=== PATIENT | male | born 1960 | race Caucasian/White ===

== ENCOUNTER 2016-12-25 01:01 | Observation (INO) | payer BC ==
[2016-12-25 02:37] LABS: Hematocrit 41 % (42-52); Hemoglobin 13.4 g/dl (14.0-18.0); Mean Corpuscular HGB Conc 33 g/dl (31-36); Mean Corpuscular Hemoglobin 28 pg (27-31); Mean Corpuscular Volume 84 fL (80-94); Mean Platelet Volume 9 um3 (7.4-10.4); Red Blood Count 4.87 10^6/ul (4.0-5.4); Red Cell Distribution Width 14 % (10.5-15); White Blood Count 12.3 10^3/ul (3.5-10.8)
[2016-12-25] MEDS ORDERED: Vancomycin(*) 1,500 MG in NS 0.9% 250 ML* 250 ML IVPB ONE (02:51)
[2016-12-25] MEDS ORDERED: NS 0.9% 1000 ML* 1,000 ML IV ONE (02:51)
[2016-12-25 02:52] LABS: Albumin 4.2 g/dL (3.2-5.2); BUN/Creatinine Ratio 16.9 (8-20); C Reactive Protein 27.52 mg/L (< 5.00); Calcium 9.1 mg/dL (8.6-10.3); EGFR African American 112.9 (>60); EGFR Non-African American 87.8 (>60); Globulin 3.9 g/dL (2-4); Potassium 3.7 mmol/L (3.5-5.0); Total Bilirubin 0.9 mg/dL (0.2-1.0); Total Protein 8.1 g/dL (6.4-8.9)
[2016-12-25] MEDS ORDERED: NS 0.9% 250 ML* 250 ML ONE (02:56)
--- NOTE | 2016-12-25 03:14 | ED ---
Joaquín Perkins Aidan, scribed for Mervat Majano MD on 12/25/16 at 0300 . Lower Extremity - HPI Summary HPI Summary: 56 y/o male presents to the ED with a complaint of an bfxaz-ic-ntegywt, constant , moderate (5/100, worsening soreness and increased swelling and redness in his lower extremities bilaterally. His RLE has increased in redness substantially more than his LLE. Additionally, he had a fever of 101. Hx of circulation problems and chronic swelling and redness in his lower extremities. - History of Current Complaint Chief Complaint: EDExtremityLower Stated Complaint: FEVER/RT LEG SWELLING Time Seen by Provider: 12/25/16 01:21 Hx Obtained From: Patient Mechanism Of Injury: Unknown Onset of Pain: Days - his lower extremities have been having increased soreness for several days now Onset/Duration: Days - however, he has had chronic lower extremity swelling and redness for a very long time Severity Initially: Moderate Severity Currently: Moderate Pain Intensity: 5 Pain Scale Used: 0-10 Numeric Timing: Constant Location: Is Discrete @ - lower extremities bilaterally Character Of Pain: Dull - soreness Associated Signs And Symptoms: Positive: Swelling, Redness, Other - fever of 101 Aggravating Factor(s): Other - unknown Alleviating Factor(s): Other - unknown Able to Bear Weight: Yes - Risk Factors Gout Risk Factors: Age Over 40, Male, Hypertension - Allergies/Home Medications Allergies/Adverse Reactions: Allergies Allergy/AdvReac Type Severity Reaction Status Date / Time Sulfa Antibiotics Allergy GI Upset Verified 12/25/16 03:08 Home Medications: Home Medications Eplerenone [Inspra] 25 mg PO DAILY 12/25/16 [History Confirmed 12/25/16] Ferrous Sulfate [Iron (Ferrous Sulfate)] 25 mg PO DAILY 12/25/16 [History Confirmed 12/25/16] PMH/Surg Hx/FS Hx/Imm Hx Endocrine/Hematology History: Denies: Hx Diabetes, Hx Thyroid Disease Cardiovascular History: Reports: Hx Hypertension - ON MEDICATION Denies: Hx Pacemaker/ICD, Other Cardiovascular Problems/Disorders Respiratory History: Reports: Hx Sleep Apnea Denies: Hx Asthma, Hx Chronic Obstructive Pulmonary Disease (COPD), Other Respiratory Problems/Disorders GI History: Reports: Hx Gastroesophageal Reflux Disease - WELL CONTROLLED, Hx Ulcer - gerd Denies: Other GI Disorders Musculoskeletal History: Reports: Hx Bursitis - LEFT HIP Denies: Other Musculoskeletal History Sensory History: Denies: Hx Contacts or Glasses, Hx Hearing Aid Opthamlomology History: Denies: Hx Contacts or Glasses Psychiatric History: Denies: Hx Panic Disorder - Surgical History Surgery Procedure, Year, and Place: R ankle fracture repair, VASCULAR LASER SURGERY Hx Anesthesia Reactions: No Infectious Disease History: No Infectious Disease History: Denies: Hx Clostridium Difficile, Hx Hepatitis, Hx Human Immunodeficiency Virus (HIV), Hx of Known/Suspected MRSA, Hx Shingles, Hx Tuberculosis, Hx Known/ Suspected VRE, Hx Known/Suspected VRSA, History Other Infectious Disease, Traveled Outside the [place] in Last 30 Days - Family History Known Family History: Positive: Hypertension - Social History Occupation: Employed Full-time Lives: With Family Alcohol Use: Occasionally Alcohol Amount: SOCIAL Substance Use Type: Reports: None Smoking Status (MU): Never Smoked Tobacco Have You Smoked in the Last Year: No Review of Systems Constitutional: Negative Eyes: Negative ENT: Negative Cardiovascular: Negative Respiratory: Negative Gastrointestinal: Negative Genitourinary: Negative Positive: Arthralgia - soreness and increased swelling and redness in his lower extremities bilaterally, Edema - soreness and increased swelling and redness in his lower extremities bilaterally. Negative: Myalgia, Decreased ROM Positive: Other - soreness and increased swelling and redness in his lower extremities bilaterally. Negative: Rash, Bruising Neurological: Negative Psychological: Normal All Other Systems Reviewed And Are Negative: Yes Physical Exam - Summary Physical Exam Summary: General: Well appearing, no pain distress Skin: Warm, Skin Color Reflects Adequate Perfusion everywhere but in the lower extremities where there is erythema, Dry Eyes: EOMI, ALLIE ENT: Pharynx normal, TMs normal Neck: Supple, nontender Respiratory: CTA, breath sounds present, no rhonchi, no wheezes, no rales Cardiovascular: RRR, no murmur, no rub, no gallop Abdomen: Soft, nontender, Non-distended, no guarding, no rebound Bowel: Present Musculoskeletal: JUANITA; POSITIVE: Erythematous up to mid-calf right leg, on left leg hyper-pigmented acute changes, 2+ edema bilaterally Neuro: Sensory/motor intact, A&Ox3, CN intact 2-12 Psych: Affect/mood appropriate Triage Information Reviewed: Yes Vital Signs On Initial Exam: Initial Vitals Temp 98.2 F 12/25/16 01:03 Vital Signs Reviewed: Yes Diagnostics - Vital Signs Vital Signs Temp Pulse Resp BP Pulse Ox 12/25/16 01:05 98.2 F 71 19 151/93 97 12/25/16 01:03 98.2 F - Laboratory Lab Results: Lab Results 12/25/16 Range/Units 02:23 WBC 12.3 H (3.5-10.8) 10^3/ul RBC 4.87 (4.0-5.4) 10^6/ul Hgb 13.4 L (14.0-18.0) g/dl Hct 41 L (42-52) % MCV 84 (80-94) fL MCH 28 (27-31) pg MCHC 33 (31-36) g/dl RDW 14 (10.5-15) % Plt Count 230 (150-450) 10^3/ul MPV 9 (7.4-10.4) um3 Neut % (Auto) 74.7 (38-83) % Lymph % (Auto) 16.5 L (25-47) % [place] % (Auto) 7.5 (1-9) % Eos % (Auto) 0.7 (0-6) % Baso % (Auto) 0.6 (0-2) % Absolute Neuts (auto) 9.2 H (1.5-7.7) 10^3/ul Absolute Lymphs (auto) 2.0 (1.0-4.8) 10^3/ul Absolute Monos (auto) 0.9 H (0-0.8) 10^3/ul Absolute Eos (auto) 0.1 (0-0.6) 10^3/ul Absolute Basos (auto) 0.1 (0-0.2) 10^3/ul Absolute Nucleated RBC 0 10^3/ul Nucleated RBC % 0 Result Diagrams: 12/25/16 02:23 12/25/16 02:23 Lab Statement: Any lab studies that have been ordered have been reviewed, and results considered in the medical decision making process. - Radiology LOWER EXTREMITY Xray Interpretation: No Acute Changes - IMPRESSION: Signs of hardware but otherwise negative examination Lower Extremity Course/Dx - Course Course Of Treatment: 56yo male with chronic venous insufficiency and rt ankle hardware with cellulitis being treated by Dr. Lagunas with levaquin and augmentin over the last several days today with fever and worsened erythema. Wbc of [address] Weller for admission for cellulitis - Diagnoses Provider Diagnoses: Cellulitis Discharge - Discharge Plan Condition: Stable Disposition: ADMITTED TO [facility] Discharge Disposition Comment: Dr. Andrea has accepted the patient for admission. Referrals: Jarocho Gutiérrez MD [Primary Care Provider] - The documentation as recorded by the Joaquín canela Aidan accurately reflects the service I personally performed and the decisions made by me, Mervat Majano MD.
[2016-12-25] MEDS ORDERED: Acetaminophen TAB* 325 MG PO PRN (03:17)
[2016-12-25] MEDS ORDERED: Senna TAB PO PRN (03:17)
[2016-12-25] MEDS ORDERED: Docusate CAP* 100 MG PO PRN (03:17)
[2016-12-25] MEDS ORDERED: Ondansetron INJ* 2 MG/ML VIAL IV PRN (03:17)
[2016-12-25] MEDS ORDERED: Al Hydrox/Mg Hydrox/Simet LIQ* 30 ML UDC PO PRN (03:17)
[2016-12-25] MEDS ORDERED: oxyCODONE/Acetamin 5/325 MG* TAB PO PRN (03:17)
[2016-12-25] MEDS ORDERED: NS 0.9% 1000 ML* 1,000 ML IV SCH (03:30)
[2016-12-25] MEDS ORDERED: Zosyn per Pharmacy* NOTE FOLLOW UP SCH (04:00)
[2016-12-25] MEDS ORDERED: Vancomycin(*) 0 MG in NS 0.9% 250 ML* 250 ML IVPB SCH (04:00)
[2016-12-25] MEDS: Heparin VIAL(*) 5000 UNITS/ML VIAL (FIVE THOUSAND) SUBCUT SCH ×2 (04:35→15:35)
--- NOTE | 2016-12-25 08:02 | HP ---
CC: Jarocho Gutiérrez M.D. HISTORY AND PHYSICAL: DATE OF ADMISSION: 12/25/16 TIME OF EVALUATION: 0300. PRIMARY CARE PHYSICIAN: Jarocho Gutiérrez M.D. CHIEF COMPLAINT: Fever, redness, and swelling of the right lower extremity. HISTORY OF PRESENT ILLNESS: This is a 56-year-old male with past medical history of chronic venous stasis with ulcers followed vascular surgeon, Dr. Lagunas, who presented this evening with fever and worsening right lower extremity pain, swelling and redness. The patient states that he has subsequent chronic venous stasis for several years. He has had a right lower extremity ulcer that is being managed by Dr. Lagunas for several months. He saw Dr. Lagunas on December 20. At that time, he was started on Levaquin 500 mg daily and Augmentin 875 mg p.o. b.i.d. and his lower extremity symptoms continued to get worse. He has more redness and swelling going up to his knee and then he developed fever of 101 at home. He denies any nausea, vomiting. He had good appetite. No chest pain, shortness of breath, no urinary symptoms, no abdominal pain, no other further rash, lesions. Otherwise, remaining review of systems is negative. In the emergency room, the patient had labs. He was given Keith david and was referred to the hospitalist service for further evaluation. PAST MEDICAL HISTORY: 1. Chronic venous stasis. 2. Obstructive sleep apnea, on CPAP. 3. Hypertension. 4. Hyperlipidemia. 5. Morbid obesity. MEDICATIONS: As mentioned, the patient was started on: 1. Levaquin 500 mg p.o. daily on 12/20. 2. Augmentin 875 mg p.o. b.i.d. 12/20 as well. 3. Verapamil 120 mg in the morning. 4. Omeprazole 20 mg daily. 5. Multivitamin daily. 6. Metoprolol tartrate 25 mg p.o. daily. 7. Lisinopril 20 mg daily. 8. Ferrous sulfate 25 mg p.o. daily. 9. Eplerenone 25 mg p.o. daily. 10. Atorvastatin 20 mg p.o. daily. ALLERGIES: SULFA ANTIBIOTICS, GI upset. FAMILY HISTORY: Reviewed and noncontributory. SOCIAL HISTORY: The patient lives at home with his , Doris, who is his healthcare proxy. No smoking, alcohol, or illicit drug use. 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 CODE STATUS: Full code. REVIEW OF SYSTEMS: As mentioned in the HPI. PHYSICAL EXAMINATION GENERAL: In no acute distress, resting comfortably. VITAL SIGNS: Temp 98.2, pulse rate 71, respiratory rate is 19, oxygen saturation 97% on room air, blood pressure 151/93. HEENT: Pupils equal and reactive to light and anicteric. Head normocephalic. Oropharynx: Mucous membranes are moist. NECK: Supple. No lymphadenopathy. LUNGS: Clear to auscultation. No wheezes, rhonchi, or rales. CARDIAC: Regular rate and rhythm, systolic murmur, heard most pronounced at the sternal bases. ABDOMEN: Morbidly obese, soft, nontender, nondistended. EXTREMITIES: The patient with findings of chronic hemosiderin and venous stasis changes on bilateral lower extremities. His right lower extremity is more edematous, erythematous and he has 2 to 3-cm ulcerated wound with purulent drainage on the lateral aspect of his right lower extremity, unable to palpate pulses. NEUROLOGIC: Alert and oriented x3. No focal neurologic deficits. LABORATORY DATA: White count 12.3, hemoglobin 13.4, hematocrit 41, platelets 230. Sodium 132, potassium 3.7, chloride 100, bicarb 24, BUN 15, creatinine 0.89, glucose 144, CRP 27.5. ASSESSMENT: This is a 56-year-old male with a past medical history of chronic venous stasis with ulcers managed by Dr. Lagunas on antibiotics who presents with worsening right lower extremity pain, redness, and swelling. 1. Cellulitis. Assessment: This is concerning as the patient has had managed on dual antibiotic therapy for several days with no clinical improvement in his symptoms and with a chronic ulcer. It is concerning for underlying osteomyelitis or cellulitis. Looking back on the microbiology that was done on 12/16, his wound culture grew pseudomonas and enterococcus. Pseudomonas is being sensitive to Levaquin and enterococcus sensitive to the Augmentin. We will continue him on vanco and Zosyn for now. We will sign out to Dr. Gutiérrez in the morning, consider further workup for osteomyelitis and infectious disease consultation. Wound culture was obtained down in the emergency room. I also put in a Doppler ultrasound to rule out underlying DVT in the setting of swelling. 2. Chronic medical problems. Hypertension, we will resume his antihypertensive regimen. 3. Hyperlipidemia. Resume his atorvastatin. 4. Gastroesophageal reflux disease. Resume his omeprazole. 5. FEN. Place the patient on a regular diet. 6. DVT prophylaxis: Place him on heparin subcu t.i.d. 7. Code status. Full code. PATIENT TIME: Greater than 50 minutes spent doing this history and physical, more than half time was spent in direct patient contact. [id number]/[facility] #: [id number] KATHERINE
[2016-12-25] MEDS: Lisinopril TAB* 10 MG PO SCH (08:19)
[2016-12-25] MEDS: Omeprazole CAP* 20 MG PO SCH (08:19)
[2016-12-25] MEDS: Metoprolol Tartrate TAB* 25 MG PO SCH (08:20)
[2016-12-25] MEDS: Verapamil SR TAB* 240 MG PO SCH (08:20)
--- NOTE | 2016-12-25 08:30 | PN ---
Subjective - Subjective Reason for Note: Progress Note History: Marty Mead has a longstanding history of venous insufficiency both lower legs, but more severe in the right lower legs. He has been followed by Dr. Woody Lagunas locally and more recently by Dr. Cesar Pollard at [facility]. He has a non healing right lower leg of the right lower ankle. This has been managed with a FRANCI boot for 4 weeks, a course of Augmentin. However, he has grown multiple organisms in the past, most recently Pseudomonas aeruginosa. Dr. Pollard wondered about problems with his right saphenous vein and performed exploratory surgery that proved to show no problem. I have no report of this procedure, but I assume this was not ligated. He was started on levofloxacin as an outpatient. Yesterday he developed a fever and swelling in his right lower leg to his knee. Hence, he presented to the emergency department. He tells me he has had further fever overnight. 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 Cellulitis of right ankle (Acute) L03.115 Edema, lower extremity (Acute) R60.0 Venous stasis dermatitis (Acute) I87.2 Venous ulcer of right leg (Acute) I83.019 Coronary artery disease (Chronic) I25.10 Essential hypertension (Chronic) I10 GERD (gastroesophageal reflux disease) (Chronic) K21.9 Hyperlipidemia (Chronic) E78.5 Morbid obesity with BMI of 45.0-49.9, adult (Chronic) E66.01, Z68.42 Sleep apnea (Chronic) G47.30 Venous insufficiency (Chronic) Current Medications: Current Medications Acetaminophen (Tylenol Tab*) 650 mg PO Q4H PRN PRN Reason: FEVER/PAIN Al Hydrox/Mg Hydrox/Simethicone (Maalox Plus*) 30 ml PO Q6H PRN PRN Reason: INDIGESTION Atorvastatin Calcium (Lipitor*) 20 mg PO 1700 ALBERT Docusate Sodium (Colace Cap*) 100 mg PO BID PRN PRN Reason: CONSTIPATION Eplerenone (Inspra (Nf)) 25 mg PO DAILY ALBERT PRN Reason: Protocol Last Admin: 12/25/16 08:15 Dose: Not Given Heparin Sodium (Porcine) (Heparin Vial(*)) 5,000 units SUBCUT Q8HR [facility] Last Admin: 12/25/16 04:35 Dose: 5,000 units Sodium Chloride (Ns 0.9% 1000 Ml*) 1,000 mls @ 125 mls/hr IV PER RATE [facility] Last Admin: 12/25/16 04:45 Dose: 125 mls/hr Piperacillin Sod/Tazobactam (Sod 3.375 gm/ Sodium Chloride) 100 mls @ 200 mls/ hr IVPB Q6H [facility] Vancomycin HCl 1,000 mg/ (Sodium Chloride) 250 mls @ 166.667 mls/hr IVPB Q8H [facility] Lisinopril (Prinivil Tab*) 20 mg PO DAILY [facility] Last Admin: 12/25/16 08:19 Dose: 20 mg Metoprolol Tartrate (Lopressor Tab*) 25 mg PO DAILY [facility] Last Admin: 12/25/16 08:20 Dose: 25 mg Omeprazole (Prilosec Cap*) 20 mg PO DAILY@0730 [facility] Last Admin: 12/25/16 08:19 Dose: 20 mg Ondansetron HCl (Zofran Inj*) 4 mg IV Q4H PRN PRN Reason: NAUSEA/VOMITING Oxycodone/Acetaminophen (Percocet 5/325 Tab*) 1 tab PO Q4H PRN PRN Reason: Pain Pharmacy Consult (Zosyn Per Pharmacy*) 1 note FOLLOW UP .ZOSYN PER PHARMACY [facility] Pharmacy Profile Note (Vancomycin Trough Check) 1 note FOLLOW UP 1130 ONE Stop: 12/26/16 11:31 Senna (Senokot Tab*) 1 tab PO BID PRN PRN Reason: CONSTIPATION Verapamil HCl (Calan Sr Tab*) 120 mg PO QAM [facility] Last Admin: 12/25/16 08:20 Dose: 120 mg Home Medications: Home Medications Medication Instructions Recorded Confirmed Type Omeprazole 20 mg PO QAM 05/29/12 12/25/16 History Atorvastatin* 20 mg PO QAM 01/24/14 12/25/16 History Lisinopril TAB* 20 mg PO QAM 01/24/14 12/25/16 History Verapamil TAB* [Calan TAB*] 120 mg PO QAM 12/10/14 12/25/16 History Multivitamin 1 tab PO QAM 12/12/14 12/25/16 History Metoprolol Tartrate TAB* 25 mg PO DAILY 10/06/15 12/25/16 History [Lopressor TAB*] Eplerenone [Inspra] 25 mg PO DAILY 12/25/16 12/25/16 History Ferrous Sulfate [Iron (Ferrous 25 mg PO DAILY 12/25/16 12/25/16 History Sulfate)] Allergies: Allergies Allergy/AdvReac Type Severity Reaction Status Date / Time Sulfa Antibiotics Allergy GI Upset Verified 12/25/16 03:08 Objective - Vital Signs Vital Signs: Vital Signs 12/25/16 12/25/16 12/25/16 03:54 04:28 04:40 Temperature 98.0 F 98 F Pulse Rate 63 63 Respiratory 16 16 16 Rate Blood Pressure 130/70 130/70 (mmHg) O2 Sat by Pulse 98 98 Oximetry 12/25/16 07:48 Temperature 98.4 F Pulse Rate 70 Respiratory 16 Rate Blood Pressure 135/73 (mmHg) O2 Sat by Pulse 98 Oximetry - Intake and Output Intake and Output: Intake & Output 12/22/16 12/23/16 12/24/16 12/25/16 11:59 11:59 11:59 11:59 Intake Total 1100 Output Total 700 Balance 400 Weight 266 lb Intake: IV Fluids 1100 Output: Urine 700 Intake and Output Start: 12/25/16 03: 54 Freq: DAILY@0600,1400,2200 Status: Active Document 12/25/16 07:59 [id number] (Rec: 12/25/16 07:59 [id number] [place] [id number]) - Physical Exam General Physical Exam Comment: He has edema +1 right lower leg and trace left lower leg. He has severe venous stasis dermatitis/chronic trophic changes to both his lower legs. He has a sharply marginated ulcer ~ 3 cm max dimension right lower leg. The right lower leg is warm. The cellulitis doesn't extend beyond the stasis dermatitis. There is no marked tenderness of this lower leg. Feet: Pedal pulses present. He has onychomycosis. No other infections/ ulcers other than that described above. General: No Cyanosis, No Anemia, No Jaundice, No Lymphadenopathy, No Clubbing Lungs and Chest: Yes: Chest Expansion Full, Chest Expansion Symetrica, Percussion Note Resonant, Vessicular Breath Sounds. No: Crackles, Wheezes Heart Rate and Rhythm: Regular JVP: Not Elevated Additional Cardiovascular: Yes: Normal Heart Sounds, Pedal Edema. No: Heart Murmur Abdominal Exam: Yes: Soft, Abdominal Tenderness, Bowel Sounds Present. No: Distention, Rigidity, Abdominal Mass, Hepatomegaly - Extremities Cranial Nerves II-XII Intact: Yes Limbs: Normal Power, Normal Tone - Neuro Orientation: A/O x3 Psychiatric: Normal Speech: Normal Results - Results Lab Results: Laboratory Tests 12/25/16 12/25/16 02:23 02:23 WBC 12.3 H Hgb 13.4 L Hct 41 L Plt Count 230 Neut % (Auto) 74.7 Sodium 132 L Chloride 100 L BUN 15 Creatinine 0.89 Glucose 144 H C-Reactive Protein 27.52 H Radiology Results: Patient Name: MARTY MEAD Medical Record#: [id number] Ordering Physician: Woody Lagunas MD Acct.#: [id number] : 1960 Age: 53 Sex: M Location: [facility] Exam Date: 11/04/13 ADM Status: REG REF Order Information: LOWER LEG RIGHT Accession Number: [id number] CPT: 52975 INDICATION: Leg pain. Two views of the lower leg demonstrates cortical thickening in the mid shaft of the tibia. No fracture is identified. IMPRESSION: CORTICAL THICKENING MID SHAFT OF THE TIBIA WITHOUT EVIDENCE OF FRACTURE. <Electronically signed by Sara Leo MD> 11/04/13 1250 Dictated By: Sara Leo MD Dictated Date/Time: 11/04/13 1250 Transcribed Date/Time: 11/04/13 1305 Copy to: CC:Jarocho Gutiérrez MD; Woody Lagunsa MD [facility] Urgent [facility] Urgent [facility] Emergency Department [address] [place] [address] [address] ph [phone]) ph ([phone] ph ([phone]) 1 of 1 Other Results/Reports: RUN DATE: 12/25/16 [facility] LAB LIVE PAGE 1 RUN TIME: [address] [place] [address] Specimen Inquiry Name: MARTY MEAD : [address]: Criss YUN Acct: [id number] Unit: [id number] AGE: 56 Location: [facility] Re12/16/16 SEX: M Status: REG REF SPEC: [id number] FILIBERTO: 12/16/[address]: Criss YUN REQ: [id number] RECD: 12/19/16 _ STATUS: COMP SOURCE: LEG, RIGHT SPDESC: ORDERED: Culture & Stain COMMENTS: [id number] QUERIES: Provider Requisition # [id number] Procedure Result Reported Site Wound/Misc Gram Stain Final 12/19/16- 1426 ML 1+ Neutrophils 4+ Gram Positive Cocci 4+ Gram Negative Bacilli Wound/Misc Culture Final 12/21/16- 0900 ML Organism 1 PSEUDOMONAS AERUGINOSA Quantity 3+ Organism 2 ENTEROCOCCUS FAECALIS Pseudomonas isolates that test resistant to piperacillin/tazobactam have not been fully validated by the brick kiln burner and therefore, are unable to be reported. 1. PSEUDOMONAS AERUGINOSA [facility] RX Ampicillin >=32 R Cefazolin >=64 R Cefepime 2 S Ceftriaxone R Ciprofloxacin <=0.25 S Gentamicin <=1 S Levofloxacin 2 S Meropenem >=16 R Nitrofurantoin >=512 R Tetracycline >=16 R CONTINUED ON NEXT PAGE * ML = Testing performed at Main Lab DEPARTMENT OF PATHOLOGY, [address] [place] [id number] Fidencio Smith M.D. Director [facility] # [id number] RUN DATE: 12/25/16 [facility] LAB LIVE PAGE 2 RUN TIME: [address] [place] [address] Specimen Inquiry Patient: MARTY MEAD [id number] (Continued) Specimen: [id number] Collected: 12/16/16 Received: 12/19/16 ( Continued) Procedure Result Reported Site Wound/Misc Culture Final (continued) 12/21/16-0900 1. PSEUDOMONAS AERUGINOSA (continued) [facility] RX Trimethoprim/Sulfamethoxazole 160 R Amoxicillin/Clavulanic Acid >=32 R 2. ENTEROCOCCUS FAECALIS [facility] RX Ampicillin <=2 S Penicillin 2 S Ciprofloxacin >=8 R Erythromycin >=8 R Gentamicin High Level R Levofloxacin >=8 R Nitrofurantoin 32 S * Quinupristin/Dalfopristin 8 R * Streptomycin High Level S Tetracycline >=16 R Tigecycline <=0.12 S Vancomycin 2 S Imipenem-Deduced S * Ampicillin/Sulbactam-Deduced S * These antibiotics are not available in the [facility] Formulary Contact the Microbiology Department for any additional antibiotic reporting. Contact the Microbiology Department for any additional antibiotic reporting. * ML - MAIN LAB (PSC1) . END OF REPORT * ML = Testing performed at Main Lab DEPARTMENT OF PATHOLOGY, [address] [place] [address] Fidencio Smith M.D. 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 He has a swollen right lower leg. He has likely some cellulitis. However, there is little extension beyond his stasis skin changes. 12/16/2016 culture of the ulcer showed polymicrobial infection with both Pseudomonas aeruginsoa and Enterococcus fecalis. Both have multiple drug resistances. Whether these are both pathogenic, or if there is a third (or fourth) infection we are not culturing, is not clear. He is currently taking vancomycin (the Enterococcus is sensitive to this) and piperacillin/tazobactam. I don't see that this latter antibacterial choice is supported for the Pseudomonas - the Enterococcus is sensitive. I think we need to add ciprofloxacin for the Pseudomonas - I note that he didn't respond to the levofloxacin. I will request an infectious disease consultation tomorrow. The ulcer looks clean and to my eye doesn't require debridement. I will keep his legs elevated. I will request US to rule out DVT Coronary artery disease (Chronic) Stable Essential hypertension (Chronic) controlled GERD (gastroesophageal reflux disease) (Chronic) ongoing Hyperlipidemia (Chronic) ongoing Morbid obesity with BMI of 45.0-49.9, adult (Chronic) major predisposing factor to venous stasis Sleep apnea (Chronic) using CPAP I discussed the above with the patient who agrees with the management plan
[2016-12-25] MEDS ORDERED: CMC:Epleronone (NF) 25 MG TAB PO SCH (09:00)
[2016-12-25] MEDS: ZOSYN 3.375 GM Q6H - Intermittant 30 min Infusion IVPB SCH ×6 (09:21→22:51)
[2016-12-25] MEDS: Vancomycin(*) 1,000 MG in NS 0.9% 250 ML* 250 ML IVPB SCH ×2 (10:16→20:13)
[2016-12-25] MEDS: CMC:Epleronone (NF) 25 MG TAB PO SCH (10:18)
[2016-12-25] MEDS: Ciprofloxacin 400MG IVPREMIX(* 400 MG/200 ML BAG IVPB SCH (11:51)
--- NOTE | 2016-12-25 12:11 | RAD ---
Indication: Fever and right leg swelling Comparison: Similar radiograph dated November 04, 2013 Technique: AP and lateral views right lower leg. Report: Similar to the previous radiograph, there is intact plate and screw fixator overlying the fibular malleolus including a medullary screw that spans the distal tibiofibular joint. There are surgical clips overlying the lower medial lower leg, also stable compared to the previous radiograph. Degenerative changes include narrowing of the medial compartment of the knee as well as narrowing and sclerotic change of the ankle joint. The bones are otherwise intact and appropriately aligned. Subcutaneous edema of the right lower extremity is visible on radiography. IMPRESSION: Appearance of subcutaneous edema and additional chronic findings as described above without radiographically apparent acute bony abnormality. If the patient's symptoms persist, follow-up imaging is recommended.
[2016-12-25] MEDS ORDERED: Atorvastatin* 20 MG TAB PO SCH (17:00)
--- NOTE | 2016-12-25 18:41 | RAD ---
HISTORY: Right lower extremity pain and edema TECHNIQUE: Multiple transverse and longitudinal ultrasound images were obtained of the veins of the right lower extremity using grayscale, color Doppler, and spectral Doppler imaging with and without compression and with augmentation. FINDINGS: VEINS: The common femoral vein, deep femoral vein and proximal most portion of the femoral vein are compressible throughout their course, with normal flow on color Doppler imaging and normal response to augmentation on spectral Doppler imaging. From the mid-level right femoral vein extending into the popliteal vein and there is loss of compressibility and absence of flow. Similar findings are identified at the right posterior tibial vein. The peroneal veins are not discretely visualized. SOFT TISSUES: Grossly normal. No large popliteal fossa cyst was identified. IMPRESSION: Sonographic findings are compatible with deep vein thrombosis from the mid-level right femoral vein extending to the infrapopliteal veins of the right leg.
--- NOTE | 2016-12-25 19:22 | PN ---
Progress Note - Progress Note Note: Positive study for right DVT: Patient Name: MARTY RODRIGUEZ Medical Record#: [id number] Ordering Physician: Jarocho Gutiérrez MD Acct.#: [id number] : 1960 Age: 56 Sex: M Location: [address] [place] [address] Exam Date: 12/25/16854 ADM Status: ADM IN Order Information: VL LOWER EXT VEINS RIGHT Accession Number: [id number] CPT: 11215 HISTORY: Right lower extremity pain and edema TECHNIQUE: Multiple transverse and longitudinal ultrasound images were obtained of the veins of the right lower extremity using grayscale, color Doppler, and spectral Doppler imaging with and without compression and with augmentation. FINDINGS: VEINS: The common femoral vein, deep femoral vein and proximal most portion of the femoral vein are compressible throughout their course, with normal flow on color Doppler imaging and normal response to augmentation on spectral Doppler imaging. From the mid-level right femoral vein extending into the popliteal vein and there is loss of compressibility and absence of flow. Similar findings are identified at the right posterior tibial vein. The peroneal veins are not discretely visualized. SOFT TISSUES: Grossly normal. No large popliteal fossa cyst was identified. IMPRESSION: Sonographic findings are compatible with deep vein thrombosis from the mid- level right femoral vein extending to the infrapopliteal veins of the right leg. <Electronically signed by Anastacio Gan MD in [place]> 12/25/161837 Dictated By: Anastacio Gan MD Dictated Date/Time: 12/25/161837 Transcribed Date/Time: 12/25/161831 Copy to: CC:Jarocho Gutiérrez MD; Aleksander Whyte MD; Valery Weller DO Imaging - [facility] - [facility] [address] [address] ph ([phone]) ph ([phone]) ph ([phone]) I called the patient on the phone: - I had the nurse give him a printed copy of the above report - I explained the findings - Most likely this is the cause for the discomfort in his right lower leg and the increased swelling - I am not sure if it explains his fever - I will not stop the antibacterials overnight - but I will discuss them with Dr. Whyte tomorrow morning - I discussed the nature of DVTs, the risk of PE. I outlined the management - use of oral anticoagulants. I discussed the different oral anticoagulants we have available - particularly the newer ones compared with warfarin. 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 He agrees to the use of Xarelto - I have written for the Rx of Xarelto 15 mg bid for 15 days. - He will have an INR added to previous blood work for a baseline and to look for coagulopathy - He will have an EKG - he has no symptoms of PE, but I want to see if there are any EKG signs. I answered questions and told him I would be able to discuss this in more detail tomorrow in person.
[2016-12-25] MEDS: Rivaroxaban TAB(*) 15 MG PO SCH (20:20)
[2016-12-26] MEDS: Ciprofloxacin 400MG IVPREMIX(* 400 MG/200 ML BAG IVPB SCH ×2 (00:01→10:46)
[2016-12-26] MEDS: ZOSYN 3.375 GM Q6H - Intermittant 30 min Infusion IVPB SCH ×4 (03:23→10:04)
[2016-12-26] MEDS: Vancomycin(*) 1,000 MG in NS 0.9% 250 ML* 250 ML IVPB SCH ×2 (04:36→11:24)
[2016-12-26 06:20] LABS: Hematocrit 36 % (42-52); Mean Corpuscular HGB Conc 33 g/dl (31-36); Mean Corpuscular Hemoglobin 28 pg (27-31); Mean Corpuscular Volume 85 fL (80-94); Mean Platelet Volume 9 um3 (7.4-10.4); Red Blood Count 4.29 10^6/ul (4.0-5.4); Red Cell Distribution Width 14 % (10.5-15); White Blood Count 8.8 10^3/ul (3.5-10.8)
[2016-12-26 06:45] LABS: BUN/Creatinine Ratio 10.9 (8-20); C Reactive Protein 58.33 mg/L (< 5.00); Calcium 8.2 mg/dL (8.6-10.3); EGFR African American 108.7 (>60); EGFR Non-African American 84.5 (>60); Potassium 3.6 mmol/L (3.5-5.0)
[2016-12-26 07:47] VITALS: BP 139/71
[2016-12-26] MEDS: CMC:Epleronone (NF) 25 MG TAB PO SCH (07:50)
[2016-12-26] MEDS: Rivaroxaban TAB(*) 15 MG PO SCH (07:51)
[2016-12-26] MEDS: Verapamil SR TAB* 240 MG PO SCH (07:51)
[2016-12-26] MEDS: Omeprazole CAP* 20 MG PO SCH (07:51)
[2016-12-26] MEDS: Lisinopril TAB* 10 MG PO SCH (07:51)
[2016-12-26] MEDS: Metoprolol Tartrate TAB* 25 MG PO SCH (07:51)
[2016-12-26] MEDS ORDERED: Furosemide IV* 10 MG/ML VIAL (40 MG) IV ONE (08:05)
--- NOTE | 2016-12-26 08:15 | PN ---
Subjective - Subjective Reason for Note: Discharge Note History: Contingent discharge note - may require further hospitalization per Dr. Whyte. His IVF remained flowing overnight - no symptoms. The pain is only in the popliteal area. Otherwise no symptoms. He has had a low grade fever. He feels weak after mostly being in bed with legs raised. No chest pain, dyspnea, palpitations, orthopnea - he slept well. 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 Cellulitis of right ankle (Acute) L03.115 Edema, lower extremity (Acute) R60.0 Right femoral vein DVT (Acute) I82.411 Venous stasis dermatitis (Acute) I87.2 Venous ulcer of right leg (Acute) I83.019 Volume overload (Acute) E87.70 Coronary artery disease (Chronic) I25.10 Essential hypertension (Chronic) I10 GERD (gastroesophageal reflux disease) (Chronic) K21.9 Hyperlipidemia (Chronic) E78.5 Morbid obesity with BMI of 45.0-49.9, adult (Chronic) E66.01, Z68.42 Sleep apnea (Chronic) G47.30 Venous insufficiency (Chronic) Current Medications: Current Medications Acetaminophen (Tylenol Tab*) 650 mg PO Q4H PRN PRN Reason: FEVER/PAIN Al Hydrox/Mg Hydrox/Simethicone (Maalox Plus*) 30 ml PO Q6H PRN PRN Reason: INDIGESTION Atorvastatin Calcium (Lipitor*) 20 mg PO 1700 [facility] Last Admin: 12/25/16 16:50 Dose: 20 mg Docusate Sodium (Colace Cap*) 100 mg PO BID PRN PRN Reason: CONSTIPATION Eplerenone (Inspra (Nf)) 25 mg PO DAILY@0900 [facility] PRN Reason: Protocol Last Admin: 12/26/16 07:50 Dose: 25 mg Sodium Chloride (Ns 0.9% 1000 Ml*) 1,000 mls @ 125 mls/hr IV PER RATE [facility] Last Admin: 12/25/16 04:45 Dose: 125 mls/hr Piperacillin Sod/Tazobactam (Sod 3.375 gm/ Sodium Chloride) 100 mls @ 200 mls/ hr IVPB Q6H [facility] Last Admin: 12/26/16 03:23 Dose: 200 mls/hr Vancomycin HCl 1,000 mg/ (Sodium Chloride) 250 mls @ 166.667 mls/hr IVPB Q8H [facility] Last Admin: 12/26/16 04:36 Dose: 166.667 mls/hr Ciprofloxacin/Dextrose (Cipro 400 Mg Ivpremix(*)) 400 mg in 200 mls @ 200 mls/ hr IVPB Q12H [facility] Last Admin: 12/26/16 00:01 Dose: 200 mls/hr Lisinopril (Prinivil Tab*) 20 mg PO DAILY [facility] Last Admin: 12/26/16 07:51 Dose: 20 mg Metoprolol Tartrate (Lopressor Tab*) 25 mg PO DAILY [facility] Last Admin: 12/26/16 07:51 Dose: 25 mg Omeprazole (Prilosec Cap*) 20 mg PO DAILY@0730 [facility] Last Admin: 12/26/16 07:51 Dose: 20 mg Ondansetron HCl (Zofran Inj*) 4 mg IV Q4H PRN PRN Reason: NAUSEA/VOMITING Oxycodone/Acetaminophen (Percocet 5/325 Tab*) 1 tab PO Q4H PRN PRN Reason: Pain Pharmacy Consult (Zosyn Per Pharmacy*) 1 note FOLLOW UP .ZOSYN [facility]ARMACY [facility] Pharmacy Profile Note (Vancomycin Trough Check) 1 note FOLLOW UP 1130 ONE Stop: 12/26/16 11:31 Rivaroxaban (Xarelto(*)) 15 mg PO BID [facility] Last Admin: 12/26/16 07:51 Dose: 15 mg Senna (Senokot Tab*) 1 tab PO BID PRN PRN Reason: CONSTIPATION Verapamil HCl (Calan Sr Tab*) 120 mg PO QAM [facility] Last Admin: 12/26/16 07:51 Dose: 120 mg Home Medications: Home Medications Medication Instructions Recorded Confirmed Type Omeprazole 20 mg PO QAM 05/29/12 12/25/16 History Atorvastatin* 20 mg PO QAM 01/24/14 12/25/16 History Lisinopril TAB* 20 mg PO QAM 01/24/14 12/25/16 History Multivitamin 1 tab PO QAM 12/12/14 12/25/16 History Metoprolol Tartrate TAB* 25 mg PO DAILY 10/06/15 12/25/16 History [Lopressor TAB*] Eplerenone [Inspra] 25 mg PO DAILY 12/25/16 12/25/16 History Ferrous Sulfate [Iron (Ferrous 25 mg PO DAILY 12/25/16 12/25/16 History Sulfate)] Verapamil HCl [Verapamil HCl Sr] 120 mg PO DAILY 12/25/16 12/25/16 History Allergies: Allergies Allergy/AdvReac Type Severity Reaction Status Date / Time Sulfa Antibiotics Allergy GI Upset Verified 12/25/16 03:08 Objective - Vital Signs Vital Signs: Vital Signs 12/25/16 12/25/16 12/25/16 11:37 15:55 20:00 Temperature 98.6 F 98.0 F Pulse Rate 60 78 Respiratory 16 16 18 Rate Blood Pressure 107/62 125/73 (mmHg) O2 Sat by Pulse 97 98 Oximetry 12/25/16 12/25/16 12/25/16 20:04 21:50 23:42 Temperature 99.1 F 99.8 F 98.8 F Pulse Rate 79 89 Respiratory 20 24 Rate Blood Pressure 132/66 127/65 (mmHg) O2 Sat by Pulse 97 97 Oximetry 12/26/16 12/26/16 03:42 07:45 Temperature 98.4 F Pulse Rate 83 74 Respiratory 16 Rate Blood Pressure 126/64 139/71 (mmHg) O2 Sat by Pulse 97 97 Oximetry - Intake and Output Intake and Output: Intake & Output 12/23/16 12/24/16 12/25/16 12/26/16 11:59 11:59 11:59 11:59 Intake Total 1100 3386 Output Total 700 800 Balance 400 2586 Weight 266 lb Intake: IV Fluids 1100 3125 ABX - CIPROFLOXACIN 200 ABX - VANCOMYCIN 619 Normal Saline 2206 Zosyn 100 IVPB 111 Zosyn 111 Oral 150 Output: Urine 700 800 Other: Estimated Void Medium # Voids 2 ADLs: Meal Record Start: 12/25/16 03: 54 Freq: DAILY@0900,1400,1800 Status: Active Document 12/25/16 08:45 [id number] (Rec: 12/25/16 08:45 [id number] MED-C16) Intake and Output Start: 12/25/16 03: 54 Freq: DAILY@0600,1400,2200 Status: Active Document 12/25/16 07:59 [id number] (Rec: 12/25/16 07:59 [id number] MED-C16) Document 12/25/16 22:00 [id number] (Rec: 12/25/16 22:38 [id number] MED-C11) Document 12/26/16 05:58 [id number] (Rec: 12/26/16 05:58 [id number] MED-C13) - Physical Exam General Physical Exam Comment: Increased tense edema of right lower leg, area of erythema is a little higher. This is warm to the touch. Tmax 99.8F General: No Cyanosis, No Anemia, No Jaundice, No Clubbing Lungs and Chest: Yes: Chest Expansion Full, Chest Expansion Symetrica, Percussion Note Resonant, Vessicular Breath Sounds, Crackles - bibasilar fine crackles - new. No: Respiratory Distress, Use of Accessory Muscles Heart Rate and Rhythm: Regular JVP: Not Elevated Additional Cardiovascular: Yes: Normal Heart Sounds. No: Heart Murmur, Pedal Edema Abdominal Exam: Yes: Soft, Bowel Sounds Present. No: Distention, Hepatomegaly, Splenomegaly Results - Results Lab Results: Laboratory Results - last 24 hr 12/26/16 12/26/16 05:47 05:47 WBC 8.8 RBC 4.29 Hgb 12.0 L Hct 36 L MCV 85 MCH 28 MCHC 33 RDW 14 Plt Count 185 MPV 9 Neut % (Auto) 66.2 Lymph % (Auto) 21.3 L Bracken % (Auto) 10.4 H Eos % (Auto) 1.5 Baso % (Auto) 0.6 Absolute Neuts (auto) 5.8 Absolute Lymphs (auto) 1.9 Absolute Monos (auto) 0.9 H Absolute Eos (auto) 0.1 Absolute Basos (auto) 0 Absolute Nucleated RBC 0 Nucleated RBC % 0 Sodium 136 Potassium 3.6 Chloride 108 Carbon Dioxide 25 Anion Gap 3 BUN 10 Creatinine 0.92 Est GFR ( Amer) 108.7 Est GFR (Non-Af Amer) 84.5 BUN/Creatinine Ratio 10.9 Glucose 127 H Calcium 8.2 L C-Reactive Protein 58.33 H Radiology Results: Patient Name: MARTY RODRIGUEZ Medical Record#: [id number] Ordering Physician: Jarocho Gutiérrez MD Acct.#: [id number] : 1960 Age: 56 Sex: M Location: [address] [place] [address] - MEDICAL Exam Date: 12/25/16 0855 ADM Status: ADM IN Order Information: VL LOWER EXT VEINS RIGHT Accession Number: [id number] CPT: 78438 HISTORY: Right lower extremity pain and edema TECHNIQUE: Multiple transverse and longitudinal ultrasound images were obtained of the veins of the right lower extremity using grayscale, color Doppler, and spectral Doppler imaging with and without compression and with augmentation. FINDINGS: VEINS: The common femoral vein, deep femoral vein and proximal most portion of the femoral vein are compressible throughout their course, with normal flow on color Doppler imaging and normal response to augmentation on spectral Doppler imaging. From the mid-level right femoral vein extending into the popliteal vein and there is loss of compressibility and absence of flow. Similar findings are identified at the right posterior tibial vein. The peroneal veins are not discretely visualized. SOFT TISSUES: Grossly normal. No large popliteal fossa cyst was identified. IMPRESSION: Sonographic findings are compatible with deep vein thrombosis from the mid- level right femoral vein extending to the infrapopliteal veins of the right leg. <Electronically signed by Anastacio Gan MD in [place]> 12/25/161837 Dictated By: Anastacio Gan MD Dictated Date/Time: 12/25/161837 Transcribed Date/Time: 12/25/161831 Copy to: CC:Jarocho Gutiérrez MD; Aleksander Whyte MD; Valery Weller DO [facility] [address] [facility] [address] ph ([phone]) ph ([phone]) ph ([phone]) 1 of EKG Report: Sinus rhythm 77 IL 210 QRS 96 QTc 433 QRS axis 12 Normal sinus rhythm with 1st deg AV block Assessment - Problem List Assessment: Patient Problems 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) Cellulitis of right ankle (Acute) Edema, lower extremity (Acute) Right femoral vein DVT (Acute) Venous stasis dermatitis (Acute) Venous ulcer of right leg (Acute) Volume overload (Acute) Coronary artery disease (Chronic) Essential hypertension (Chronic) GERD (gastroesophageal reflux disease) (Chronic) Hyperlipidemia (Chronic) Morbid obesity with BMI of 45.0-49.9, adult (Chronic) Sleep apnea (Chronic) Venous insufficiency (Chronic) Plan: Right femoral vein DVT (Acute) Venous insufficiency (Chronic) I have started him on xarelto 15 mg bid for 21 days followed by 20 mg qdaily 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 Whyte. Clearly, his poor venous drainage has made this cellulitis more difficult to treat. This is possibly a polymicrbial infection with resistant organisms. We need to decide if this require parenteral antibacterials to maintain bactericidal concentrations of antibacterials. Volume overload (Acute) I have ensured the IVF was stopped. I will give him a single dose of IV furosemide. We will follow this clinically Coronary artery disease (Chronic) This is in the problem list - not sure of its basis - he sees Dr. Ramesh as an outpatient Essential hypertension (Chronic) controlled GERD (gastroesophageal reflux disease) (Chronic) secondary diagnosis Hyperlipidemia (Chronic) secondary diagnosis Morbid obesity with BMI of 45.0-49.9, adult (Chronic) secondary diagnosis Sleep apnea (Chronic) secondary diagnosis I discussed the above with the patient and whether he is likely to have to stay for longer IV antibacterial treatment.
[2016-12-26] MEDS ORDERED: Vancomycin Trough Check NOTE FOLLOW UP ONE (11:30)
--- NOTE | 2016-12-26 15:49 | CONS ---
CONSULTATION REPORT: DATE OF CONSULT: 12/26/16 REQUESTING PHYSICIAN: Jarocho Gutiérrez MD. CONSULTING SERVICE: Infectious Disease. REASON FOR CONSULTATION: Right leg swelling and redness. IMPRESSION: 1. Chronic bilateral venous stasis changes, now with a right lower extremity deep vein thrombosis and a chronic right lower extremity ulcer. I do not think there is underlying deep-seated infection as the cause of his ongoing symptoms. I do think, he likely has a cellulitis associated with his venous stasis insufficiency. He did grow pseudomonas and Enterococcus from the wound. He typically grows Enterococcus from that wound, it looks like over the last few months Enterococcus is often just a colonizer. 2. Obesity. 3. Obstructive sleep apnea. RECOMMENDATION: Levaquin 500 mg by mouth daily for another 10 days. If he has worsening erythema or swelling, he will call my office for reevaluation. Otherwise, I discussed the case with Dr. Gutiérrez who plans to manage this infection at this point. He is also treating him for his newly diagnosed deep venous thrombosis. We also discussed lymphedema clinic if things are not improving. HISTORY OF PRESENT ILLNESS: This is a 56-year-old male with venous insufficiency, admitted with right leg swelling and pain and fever. He has been followed by Dr. Lagunas for the right lateral ankle ulcer, has had been treated with Unna boots. He had a culture taken that grew pseudomonas and Enterococcus on the 12/16/16, and was on Levaquin and Augmentin. He had worsening calf swelling and pain. He came to the hospital on 12/25/16. Ultrasound showed DVT. He was started on Zosyn, vancomycin, and ciprofloxacin. The pain is about the same. He did have little bit worsening redness in the lower leg and that he thinks has improved a little bit as well. He had a low- grade temperature of 37.7 overnight. His appetite is good. He denies fevers, chills or sweats. PAST MEDICAL HISTORY: 1. Bilateral lower extremity lymphedema. 2. Obstructive sleep apnea, on CPAP. 3. Obesity. 4. Hypertension. 5. Hyperlipidemia. MEDICATIONS: 1. Tylenol. 2. Lipitor. 3. Docusate. 4. Eplerenone. 5. Lisinopril. 6. Metoprolol. 7. Omeprazole. 8. Zosyn 3.375 g IV every 6 hours. 9. Ciprofloxacin. 10. Vancomycin 1 g IV every 8 hours. 11. Verapamil. ALLERGIES: SULFA causes GI upset. FAMILY HISTORY: No recurrent infections. SOCIAL HISTORY: He lives in [place]. He does not drink or smoke. REVIEW OF SYSTEMS: All negative to a full review of systems, except as noted above. PHYSICAL EXAM: Vital Signs: Temperature 37, heart rate 70, respiratory rate 16 , blood pressure 140/70, O2 sat 97% on room air. In general, he is awake, not in distress. HEENT: There is no conjunctival hemorrhage. Oropharynx without lesions. Neck: Supple, without nuchal rigidity. Lymph Nodes: There is no cervical, supraclavicular, inguinal, axillary or epitrochlear lymphadenopathy. Heart: Regular rate and rhythm, without murmurs, rubs, or gallops. Lungs: Clear to auscultation bilaterally. Abdomen: Soft, nontender, nondistended, without hepatosplenomegaly. Skin: There is no splinter hemorrhage. There are bilateral venous insufficiency changes in the lower extremities, with circumferential erythema and warmth, which is slightly more impressive in the right lower extremity. There is no crepitus or fluctuance. Musculoskeletal: There is no spine tenderness to palpation or joint synovitis. He does have right calf tenderness and edema. There is ulcer on the right lateral foot adjacent to the malleolus, but not on it, without surrounding erythema, and there is no drainage; it is about 4 mm. DIAGNOSTIC STUDIES/LAB DATA: White blood cell count 8, hemoglobin 12, platelets 185. Creatinine is 0.9. CRP 58. Blood cultures were negative and wound culture taken here yesterday is pending. The Gram-stain showed no organisms. Please see impressions and recommendations outlined above, which I have discussed with Dr. Gutiérrez. Thank you for asking me to see Mr. Mead in consultation. [id number]/[facility] #: [id number] KATHERINE
== END 2016-12-26 14:35 | disposition home or self-care (01) ==
LOC: ED 01:01 → INTOOBSV 03:39 → MED 03:39
PROVIDERS: ADMIT Pediatrics; ATTEND Internal Medicine
DX: L03.115 Cellulitis of right lower limb (principal); I87.8 Other specified disorders of veins; I10 Essential (primary) hypertension; E78.5 Hyperlipidemia, unspecified; E66.01 Morbid (severe) obesity due to excess calories; G47.33 Obstructive sleep apnea (adult) (pediatric); K21.9 Gastro-esophageal reflux disease without esophagitis; Z79.899 Other long term (current) drug therapy; Z88.2 Allergy status to sulfonamides; M79.604 Pain in right leg; I82.411 Acute embolism and thrombosis of right femoral vein
CPT/HCPCS: 36415; 80048; 80053; 83036; 83605; 85025; 85610; 86140; 87040; 87070; 87205; 93005; 96365; 96372; 96375; 96376; A9270-GY; G0378; J0744; J1644; J1940; J2543; J3370

== ENCOUNTER 2018-01-08 21:25 | Emergency (ER) | payer BC ==
[2018-01-08 21:33] VITALS: BP 129/71
--- NOTE | 2018-01-08 21:41 | UC ---
Lower Extremity/Ankle HPI - HPI Summary HPI Summary: 57 y/o male presents to the urgent care requesting a wound culture for his chronic ulcer. Pt reports PMHX of Chronic PVD and for the past 3 weeks he develops a small ulcer that doesn't want to heal and now w/ mild drainage for the past week. Pt called DR garcia who manages his PVD, but he is on vacation for 1 week. Pt states he wants a wound culture to see what ABx he can take since he has resistance to multiple ABx. Pain is 3/10 at touch. Pt denies fever , SOB, calf pain, abdominal pain, N/V/D. - History of Current Complaint Chief Complaint: UCWounds Stated Complaint: WOUND ON ANKLE Time Seen by Provider: 01/08/18 21:40 Hx Obtained From: Patient Onset/Duration: Gradual Onset, Lasting Weeks - 3 weeks, Still Present, Worse Since - 1 week Severity Initially: Mild Severity Currently: Moderate Pain Intensity: 4 - at touch Pain Scale Used: 0-10 Numeric Aggravating Factor(s): Standing, Ambulation Alleviating Factor(s): Rest, Elevation, OTC Meds Able to Bear Weight: Yes - Risk Factors Gout Risk Factors: Negative DVT Risk Factors: Negative Septic Arthritis Risk Factor: Negative - Allergies/Home Medications Allergies/Adverse Reactions: Allergies Allergy/AdvReac Type Severity Reaction Status Date / Time diltiazem [From Cardizem] Allergy Unknown Unknown Verified 01/08/18 21:33 Reaction Details Sulfa (Sulfonamide Allergy GI Upset Verified 01/08/18 21:33 Antibiotics) PMH/Surg Hx/FS Hx/Imm Hx Previously Healthy: Yes Endocrine History: Dyslipidemia Cardiovascular History: Hypertension, Congestive Heart Failure Other Cardiovascular History: PVD GI/ History: Gastroesophageal Reflux - Surgical History Surgical History: Yes Surgery Procedure, Year, and Place: R ankle fracture repair, VASCULAR LASER SURGERY - Family History Known Family History: Positive: Cardiac Disease, Hypertension - Social History Occupation: Unemployed Lives: With Family Alcohol Use: Occasionally Alcohol Amount: SOCIAL Substance Use Type: None Smoking Status (MU): Never Smoked Tobacco Have You Smoked in the Last Year: No - Immunization History Most Recent Influenza Vaccination: never Most Recent Pneumonia Vaccination: never Review of Systems Constitutional: Negative Skin: Other - RT ankle ulcer Eyes: Negative ENT: Negative Respiratory: Negative Cardiovascular: Negative Gastrointestinal: Negative Genitourinary: Negative Motor: Negative Neurovascular: Negative Musculoskeletal: Negative Neurological: Negative Psychological: Negative Is Patient Immunocompromised?: No All Other Systems Reviewed And Are Negative: Yes Physical Exam - Summary Physical Exam Summary: Vital Signs Reviewed: Yes General: well developed, well nourished obese male sitting in the examining table w/o any apparent distress. Eyes: Positive: Conjunctiva Clear - PERRLA, EOMI ENT: Positive: Normal ENT inspection, Hearing grossly normal, Pharynx normal, TMs normal Neck: Positive: Supple, Nontender, No Lymphadenopathy Respiratory: Positive: Chest nontender, Lungs clear, Normal breath sounds Cardiovascular: Positive: RRR, No Murmur, Pulses Normal Abdomen Description: Positive: Nontender, No Organomegaly, Soft. Negative: CVA Tenderness (R), CVA Tenderness (L) Bowel Sounds: Positive: Present Musculoskeletal: Positive: Strength Intact, ROM Intact, No Edema Neurological Exam: Normal Psychological Exam: Normal Skin: Positive: rashes - lateral side above the Rt ankle w/ erythematous oozing chronic ulcer.warm to touch, mild swelling and mild tender to palpation. Linear in shape about 2.0 x 0.5 cm in size..Pt w/ B/L lower legs hyperpigmentation due to his chronic PVD. FROM of Rt ankle, pulses WNL, capillary refill brisk and sensation intact Triage Information Reviewed: Yes Vital Signs: Initial Vital Signs Temp 96.4 F 01/08/18 21:29 Pulse 65 01/08/18 21:29 Resp 18 01/08/18 21:29 BP 129/71 01/08/18 21:29 Pulse Ox 97 01/08/18 21:29 Lower Extremity Course/Dx - Course Course Of Treatment: 57 y/o male presents to the urgent care requesting a wound culture for his chronic ulcer. Pt reports PMHX of Chronic PVD and for the past 3 weeks he develops a small ulcer that doesn't want to heal and now w/ mild drainage for the past week. Pt called DR garcia who manages his PVD, but he is on vacation for 1 week. Pt states he wants a wound culture to see what ABx he can take since he has resistance to multiple ABx. Pain is 3/10 at touch. Pt denies fever, SOB, calf pain, abdominal pain, N/V/D.Hx obtained. Pt w/ lateral side above the Rt ankle w/ erythematous oozing chronic ulcer.warm to touch, mild swelling and mild tender to palpation. Linear in shape about 2.0 x 0.5 cm in size..Pt w/ B/L lower legs hyperpigmentation due to his chronic PVD on examination. Sample taken from the wound and sent to lab to r/o any abnormality. Pt will be notified of any result. Wound care perforned and wound dressed w/ sterile dressing. Pt tolerated well procedure. Pt's symptoms discusses w/ Dr Kent who evaluated Pt and he recommended to reviwed previous wound culture sensitivies. After reviewing them Pt can be Rx Augmentin PO since it sensitive. pt given first dose at the clinic by nurse. pt tolerated well medication. Rx sent to pharmacy. Pt strongly advised to f/u w/ DR Garcia next week for further managment. Pt understood and agreed w/ D/C instructions. Pt left clinc hemodynamically stable A&OX3. - Differential Dx/Diagnosis Differential Diagnosis/HQI/PQRI: Cellulitis, DVT, Infection, Osteomyelitis, Phlebitis, Septic Arthritis, Other - PVD Provider Diagnoses: 1- Chronic wound s/p Peripheral vacular disease Discharge - Sign-Out/Discharge Documenting (check all that apply): Discharge/Admit/Transfer - D/C home - Discharge Plan Condition: Stable Disposition: HOME Prescriptions: Amoxicillin/Clavulanate TAB* [Augmentin TAB 875*] 875 mg PO BID #13 tab Gentamicin 0.1% OINTMENT* 1 applic TOPICAL TID #1 tube Patient Education Materials: Chronic Wound Care (ED) Referrals: Jarocho Gutiérrez MD [Primary Care Provider] - 3 Days Additional Instructions: 1-Please take full course of Antibiotic. Apply bacitracin oint as directed over the wound. Keep it dry and clean 2- Wound culture sent to lab to r/o any abnormality. You will notifies of results 3- If redness and swelling doubles in size and wound worsens and fever develops please go to the ER immediately. 4-Avoid standing for long periods of time or flexing your ankle keep it elevated and keep wound clean and dry. 5-Please F/u with your PCP in 1 week when he returns to his office for further evaluation and treatment. - Billing Disposition and Condition Condition: STABLE Disposition: Home
[2018-01-08] MEDS ORDERED: Amoxicillin/Clavulanate TAB* 875 MG PO ONE (22:00)
--- NOTE | 2018-01-09 17:56 | UC ---
- Progress Note Progress Note: MRSA neg S. Aureus neg Pt on Augmentin await sensitivity Ljj 01/09/2018 Discharge - Sign-Out/Discharge Documenting (check all that apply): Discharge/Admit/Transfer - Discharge Plan Condition: Stable Disposition: HOME Prescriptions: Amoxicillin/Clavulanate TAB* [Augmentin TAB 875*] 875 mg PO BID #13 tab Gentamicin 0.1% OINTMENT* 1 applic TOPICAL TID #1 tube Patient Education Materials: Chronic Wound Care (ED) Referrals: Jarocho Gutiérrez MD [Primary Care Provider] - 3 Days Additional Instructions: 1-Please take full course of Antibiotic. Apply bacitracin oint as directed over the wound. Keep it dry and clean 2- Wound culture sent to lab to r/o any abnormality. You will notifies of results 3- If redness and swelling doubles in size and wound worsens and fever develops please go to the ER immediately. 4-Avoid standing for long periods of time or flexing your ankle keep it elevated and keep wound clean and dry. 5-Please F/u with your PCP in 1 week when he returns to his office for further evaluation and treatment. - Billing Disposition and Condition Condition: STABLE Disposition: Home
--- NOTE | 2018-01-10 17:41 | UC ---
- Progress Note Progress Note: I CALLED AND SPOKE TO THE PATIENT. FULL NAME AND DATE OF CONFIRMED. HE REPORTS HIS WOUND IS STABLE. JUST A BIT PAINFUL. ADVISED HIM THAT PRELIMINARY CULTURE POSITIVE FOR PSEUDOMONAS WHICH IS UNLIKELY TO BE RESPONSIVE TO THE AUGMENTIN HE IS ON. ADVISED PATIENT TO STOP AUGMENTIN. RECOMMENDED LEVOFLOXACIN 750 MG DAILY. PATIENT STATES HE HAS 7 DAYS WORTH OF THIS MEDICATION AT HOME ALREADY. ADVISED TO TAKE THIS MEDICATION AND FOLLOW-UP WITH DR. DURHAM OR HIS PCP NEXT WEEK. - KENIA PHAN MD Discharge - Sign-Out/Discharge Documenting (check all that apply): Discharge/Admit/Transfer - Discharge Plan Condition: Stable Disposition: HOME Prescriptions: Amoxicillin/Clavulanate TAB* [Augmentin TAB 875*] 875 mg PO BID #13 tab Gentamicin 0.1% OINTMENT* 1 applic TOPICAL TID #1 tube Patient Education Materials: Chronic Wound Care (ED) Referrals: Jarocho Gutiérrez MD [Primary Care Provider] - 3 Days Additional Instructions: 1-Please take full course of Antibiotic. Apply bacitracin oint as directed over the wound. Keep it dry and clean 2- Wound culture sent to lab to r/o any abnormality. You will notifies of results 3- If redness and swelling doubles in size and wound worsens and fever develops please go to the ER immediately. 4-Avoid standing for long periods of time or flexing your ankle keep it elevated and keep wound clean and dry. 5-Please F/u with your PCP in 1 week when he returns to his office for further evaluation and treatment. - Billing Disposition and Condition Condition: STABLE Disposition: Home
--- NOTE | 2018-01-11 19:51 | UC ---
- Progress Note Progress Note: Wound culture - final MRSA neg, S. Aureus neg Pseudomonas Aeruginosa Pt on Augmentin - resistance Change abx to cipro please call pt and update aftabj 01/11/2018 Discharge - Sign-Out/Discharge Documenting (check all that apply): Post-Discharge Follow Up - Discharge Plan Condition: Stable Disposition: HOME Prescriptions: Amoxicillin/Clavulanate TAB* [Augmentin TAB 875*] 875 mg PO BID #13 tab Gentamicin 0.1% OINTMENT* 1 applic TOPICAL TID #1 tube Patient Education Materials: Chronic Wound Care (ED) Referrals: Jarocho Gutiérrez MD [Primary Care Provider] - 3 Days Additional Instructions: 1-Please take full course of Antibiotic. Apply bacitracin oint as directed over the wound. Keep it dry and clean 2- Wound culture sent to lab to r/o any abnormality. You will notifies of results 3- If redness and swelling doubles in size and wound worsens and fever develops please go to the ER immediately. 4-Avoid standing for long periods of time or flexing your ankle keep it elevated and keep wound clean and dry. 5-Please F/u with your PCP in 1 week when he returns to his office for further evaluation and treatment. - Billing Disposition and Condition Condition: STABLE Disposition: Home
== END 2018-01-08 22:20 | disposition home or self-care (01) ==
LOC: UCEAST 21:25
DX: L97.319 Non-pressure chronic ulcer of right ankle with unspecified severity (principal); I73.9 Peripheral vascular disease, unspecified; I11.0 Hypertensive heart disease with heart failure; I50.9 Heart failure, unspecified; Z88.2 Allergy status to sulfonamides; Z88.8 Allergy status to other drugs, medicaments and biological substances
CPT/HCPCS: 87070; 87077; 87186; 87205; 87640; 87641; 99212; A9270-GY; G0463

== ENCOUNTER 2018-03-01 03:53 | Emergency (ER) | payer BC ==
--- OUTSIDE RECORDS SUMMARY | 2018-03-01 05:42 | XMS REPORT ---
:1960 External Reference #:[id number] Author Organization [facility] Address [address] [place] [address] [place] [address] Phone [phone] Care Team Providers Name Role Phone Jarocho Gutiérrez MD Primary Care Physician Unavailable Payers Type Date Identification Numbers Payment Provider Subscriber Commercial Effective: Policy Number: PETRONA Cassandra Mead 2012 [id number] PayID: [id number] [address] [address] ANA CRISTINA Brody [address] Medigap Part B Effective: 2000 Policy Number: BerthaKristen Mead [id number] Expires: 2012 Group Number: [id number] [address] [address] Group Name: [id number] ANA CRISTINA Brody [id number] PayID: [id number] Problems Date Description Provider Status Onset: 06/15/2011 Coronary arteriosclerosis Rick Ramesh M.D. Active Onset: 06/15/2011 Benign essential hypertension Rick Ramesh M.D. Active Onset: 06/15/2011 Pure hypercholesterolemia Rick Ramesh M.D. Active Onset: 05/15/2013 Palpitations Rick Ramesh M.D. Active Onset: 05/15/2013 Morbid obesity Rick Ramesh M.D. Active Onset: 01/13/2014 Edema Rick Ramesh M.D. Active Family History Date Family Member(s) Problem(s) Comments General no recurrent infection : (age 92 Father due to CAD [place] age 40's. Years) : (age 82 Mother due to Cancer Years) Siblings 4 1 brother hodgkins, 15 years later, age 40 chf attributed to complications of Hodgkins rx. 2018 other 3 without CAD Social History Type Date Description Comments Marital Status Lives With Alone Occupation [employer] Cigarette Use Never Smoked Cigarettes ETOH Use Denies alcohol use Smoking Patient has never smoked Recreational Drug Use Denies Drug Use Daily Caffeine Coffee 2-3 times per week, regular strength Exercise Type/Frequency Exercises regularly 1/2 hr 6x week Allergies, Adverse Reactions, Alerts Date Description Reaction Status Severity Comments 07/31/2013 Diltiazem gi upset. active 06/13/2005 NKDA inactive Medications Medication Date Status Form Strength Qnty SIG Indications Ordering Provider Atorvastatin 10/05 Active Tablets 20mg 90tab take one Rick Calcium s tablet by F. mouth every Mauser, day M.DFrida Inspra 02/09 Active Tablets 25mg 90tab 1 by mouth s every day Satish Ramesh M.D. Calan SR 08/07 Active Tablets 120mg 60tab 2 by mouth ER s every day Satish Ramesh M.D. Lisinopril 08/01 Active Tablets 20mg 30tab take one s tablet once F. daily Judith Ramesh Omeprazole Active Capsules 20mg 30cap 1 po qd Unknown / DR chacon Multivitamins Active 1 tablet po Unknown / daily Metoprolol Active Tablets 25mg 180ta take one Tartrate bs tablet by F. mouth twice Mauser, a day Judith Iron Active Tablets 325(65Fe) 1 by mouth Unknown /0000 mg every day Eliquis Active Tablets 5mg 1 by mouth Unknown /0000 twice a day Acetaminophen Active Capsules 500mg 2 tab by /0000 mouth every 6 hours as needed chronic hip pain Cpap Active Device for use Unknown /0000 while sleeping Xarelto 12/28 Hx Tablets 20mg 30tab 1 by mouth s every day Satish Ramesh 04/18 M.DFrida Inspra 09/29 Hx Tablets 25mg 7tabs 1 by mouth every day Satish Ramesh 02/08 M.D Calan SR 09/29 Hx Tablets 120mg 60tab Take Two ER s Tablets By F. - Mouth Every use, 12/28 Day M.D. Augmentin 03/06 Hx Tablets 875-125mg 28tab 1 by mouth 682.6 s twice a day Antonio Whyte, 09/28 M.D. Calan 09/03 Hx Tablets 120mg 1 po qd . - Gadiel, 09/03.D. Calan SR 09/03 Hx Tablets 120mg 60tab 2 by mouth ER s every day . - Gadiel, 09/29 M.D. Hydrochlorothiazid 09/03 Hx Tablets 25mg 30tab 1 po qd s Frida Gadiel, 01/10.D. Lisinopril 07/30 Hx Tablets 10mg 100ta 2 po qam bs Frida Gadiel, 08/01.D. Lisinopril 07/17 Hx Tablets 10mg 30tab 1 po qd s . Gadiel, 07/30.D. Dilt-CD 07/17 Hx Caps ER 120mg 30cap 1 po qd 24HR s starting F - 07.30.13virgilio, 07/31.D. Nabumetone 05/15 Hx Tablets 500mg 1 po bid . - Gadiel, 05/15.D. Lotrel 05/15 Hx Capsules 2.5-10mg 100ca 1/2 tab po ps qd (Back on F. - as of zaida, 07/2307/23/13) .D. Potassium Chloride 04/23 Hx Tablets 20Meq 14tab 1 by mouth ER s every day F. - hold as of Gadiel, 03/02.2015 M.D. /2015 Lipitor 06/21 Hx Tablets 20mg 30tab one tab by s mouth every F. - night at [place], 10/05 bedtime M.D. /2017 Nabumetone 06/15 Hx Tablets 500mg 60tab 1 po daily s - 05/15 Zocor 11/10 Hx Tablets 20mg 30tab 1 po qhs s F. - Mauser, 06/21 M.D. Metoprolol 06/16 Hx Tablets 50mg 45tab / tablet Rick Tar s po qd F. - Mauser, 06/15 M.D. Metoprolol 05/04 Hx Tablets 50mg 180ta 1 po qd ER bs F. - Celinauser, 06/16 M.D. Metoprolol 09/10 Hx Tablets 50mg 60tab 1 po bid s F. - Mauser, 05/04 M.D. KCL 08/01 Hx Tablets 20Meq 30tab 1 po qd s F. - Celinauser, 06/15 M.D. Vytorin 01/01 Hx Tablets 10-10mg 90tab 1 po qd s F. - Mauser, 01/01 M.D. Zocor 01/01 Hx Tablets 10mg 30tab 1 po hs s F. - Mauser, 11/10 M.D. Simvastatin 11/21 Hx Tablets 10mg 30tab 1 PO QHS s F. - Mauser, 01/01 M.D. /2007 Lotrel 01/19 Hx Capsules 10-20mg 30cap 1 po qd s F. - Mauser, 05/15 M.D. Vytorin 10/09 Hx Tablets 10-10mg 30tab 1 po qd s F. - Mauser, 11/21 M.D. /2007 Niaspan Extended 08/04 Hx Tablets 1,000mg 30tab 1 po q hs s F. - Mauser, 01/19 M.D. /2006 Zetia 08/04 Hx Tablets 10mg 30tab 1 po qd s F. - Mauser, 10/09 M.D. /2006 Lotrel 06/08 Hx Capsules 5mg;20 mg 90cap 1 po qd s F. - Mauser, 01/19 M.D. Toprol XL 05/18 Hx Tablets 50mg 30tab 1 po qd s F. - Mauser, 09/10 M.D. Toprol XL 04/05 Hx Tablets 25mg 30tab 1 po qd s F. - Mauser, 05/18 M.D. Niaspan Extended 09/01 Hx Tablets 500mg 30tab 1 po qpm s F. - Mauser, 08/04 M.D. Advicor 08/18 Hx Tablets 20mg;500 30tab 1 po qd mg s F. - Mauser, 09/01 M.D. Altace 06/13 Hx Capsules 10mg 30cap 1 po qd s F. - Mauser, 06/08 M.D. Advicor 05/17 Hx Tablets 20mg;500 30tab 1 po qd mg s F. - Mauser, 07/14 M.D. Aspirin Enteric 05/17 Hx Tablets 81mg 1 po qd F. - Mauser, 02/08 M.D. Toprol XL 05/17 Hx Tablets 50mg taper qod then D/c in F. - wk Feliciar, 06/13 M.D. Aspirin 05/10 Hx Gelcaps 325mg 90uni 1 po qd ts F. - Mauser, 05/17 M.D. Plavix 05/10 Hx Tablets 75mg 30tab 1 po qd s F. - Mauser, 05/12 M.D. Toprol XL 05/10 Hx Tablets 50mg 30tab 1 po qd s F. - Mauser, 05/17 M.D. Altace 05/10 Hx Capsules 5mg 30cap 1 po qd s F. - Mauser, 06/13 M.D. /2004 Cipro Hx Tablets 500mg 20tab 1 tablet by Unknown /0000 s mouth twice - a day( new 02/02 medication started 1 week ago) Percocet Hx 1 tablet po Unknown /0000 as needed - for pain 02/08 Gentamicin Sulfate / Hx Cream 0.1% 30gm every day Aleksander /0000 w/ dressing D. - changes Alcidesen, 02/08 M.D. Triamcinolone Hx Ointment 0.1% 30gm every day Aleksander Acetonide /0000 as needed D. - Macqueen, 02/08 M.D. Augmentin Hx Tablets 875-125mg one by Unknown /0000 mouth every - 12 hours 03/06 for days Levofloxacin Hx Tablets 500mg one by Unknown /0000 mouth daily - 12/14 Levaquin Hx Tablets 500mg 1 by mouth Unknown /0000 every day - 04/01 Eliquis Hx Tablets 5mg 1 tablet by Unknown /0000 mouth twice - a day. 06/23 thinner. Xarelto Hx Tablets 15mg 1 by mouth Unknown /0000 every day - 12/21 Gabapentin Hx Capsules 400mg take one Unknown /0000 capsule by - mouth 3 02/07 times a day /2017 Hydrocodone-Acetam Hx Tablets 5-325mg 1 or 2 tabs Unknown inophen /0000 by mouth - every 6-8 02/25 hours needed for pain Vital Signs Date Vital Result Comment 02/26/2018 Height 63 inches 5'3" Weight 269.00 lb Heart Rate 96 /min BP Systolic Sitting 126 mmHg BP Diastolic Sitting 100 mmHg Respiratory Rate 14 /min O2 % BldC Oximetry 98 % BMI (Body Mass Index) 47.6 kg/m2 Neck Circumference in inches 17 02/08/2018 Height 63 inches 5'3" Weight 274.00 lb Heart Rate 60 /min BP Systolic Sitting 144 mmHg Lue large cuff BP Diastolic Sitting 94 mmHg Lue large cuff BP Systolic Standing 142 mmHg Lue BP Diastolic Standing 90 mmHg Lue BP Systolic Lying Down 138 mmHg la sit repeat BP Diastolic Lying Down 83 mmHg la sit repeat Respiratory Rate 16 /min BMI (Body Mass Index) 48.5 kg/m2 Ejection Fraction 55-60% 11/28/17 12/22/2017 Weight 268.00 lb Heart Rate 64 /min BP Systolic Sitting 158 mmHg large cuff left arm BP Diastolic Sitting 80 mmHg large cuff left arm BP Systolic Standing 140 mmHg BP Diastolic Standing 88 mmHg Respiratory Rate 16 /min 04/04/2017 Height 63 inches 5'3" Weight 262.00 lb w/shoes Heart Rate 78 /min BP Systolic Sitting 158 mmHg LA lg cuff BP Diastolic Sitting 104 mmHg LA lg cuff BMI (Body Mass Index) 46.4 kg/m2 Ejection Fraction 60-65% Echo 06/25/13 01/05/2017 Height 63 inches 5'3" Heart Rate 60 /min BP Systolic Sitting 139 mmHg BP Diastolic Sitting 96 mmHg Respiratory Rate 14 /min Body Temperature 99.2 F 12/15/2016 Height 63 inches 5'3" Weight 267.00 lb w/shoes Heart Rate 68 /min BP Systolic Sitting 184 mmHg LA lg cuff BP Diastolic Sitting 98 mmHg LA lg cuff BP Systolic Standing 148 mmHg la repeat sitting BP Diastolic Standing 89 mmHg la repeat sitting BMI (Body Mass Index) 47.3 kg/m2 Ejection Fraction 60-65% Echo 06/25/13 08/25/2016 Height 63 inches 5'3" Weight 267.50 lb with shoes Heart Rate 78 /min BP Systolic Sitting 152 mmHg LA lrg cuff BP Diastolic Sitting 92 mmHg LA lrg cuff BP Systolic Standing 132 mmHg la repeat sitting BP Diastolic Standing 72 mmHg la repeat sitting BMI (Body Mass Index) 47.4 kg/m2 Ejection Fraction 60% - 65% echo 06/25/13 03/02/2016 Height 63 inches 5'3" Weight 267.00 lb with shoes Heart Rate 66 /min BP Systolic Sitting 130 mmHg La lg cuff BP Diastolic Sitting 70 mmHg La lg cuff Respiratory Rate 16 /min BMI (Body Mass Index) 47.3 kg/m2 Ejection Fraction 60-65% date 06/25/2013 ECHO 02/10/2016 Height 63 inches 5'3" Weight 267.00 lb w/o shoes Heart Rate 66 /min BP Systolic Sitting 158 mmHg LA lrg cuff BP Diastolic Sitting 92 mmHg LA lrg cuff BMI (Body Mass Index) 47.3 kg/m2 Ejection Fraction 60% - 65% 06/25/13 echo 10/09/2014 BP Systolic 142 mmHg BP Diastolic 92 mmHg 10/09/2014 Height 63 inches 5'3" Heart Rate 70 /min BP Systolic 160 mmHg LA large cuff BP Diastolic 100 mmHg LA large cuff 09/29/2014 Height 63 inches 5'3" Weight 257.75 lb w/shoes Heart Rate 62 /min BP Systolic Sitting 150 mmHg LA lg cuff BP Diastolic Sitting 90 mmHg LA lg cuff Respiratory Rate 14 /min BMI (Body Mass Index) 45.7 kg/m2 03/06/2014 Height 63 inches 5'3" Weight 253.00 lb Heart Rate 64 /min BP Systolic Standing 162 mmHg BP Diastolic Standing 94 mmHg Respiratory Rate 16 /min BMI (Body Mass Index) 44.8 kg/m2 02/03/2014 Height 63 inches 5'3" Weight 257.00 lb Heart Rate 78 /min regular BP Systolic Sitting 142 mmHg BP Diastolic Sitting 76 mmHg Respiratory Rate 20 /min Body Temperature 98.5 F BMI (Body Mass Index) 45.5 kg/m2 01/13/2014 Height 63 inches 5'3" Weight 261.00 lb with shoes Heart Rate 60 /min BP Systolic Sitting 138 mmHg Ra lg cuff BP Diastolic Sitting 80 mmHg Ra lg cuff BP Systolic Standing 130 mmHg Ra lg cuff BP Diastolic Standing 72 mmHg Ra lg cuff Respiratory Rate 16 /min BMI (Body Mass Index) 46.2 kg/m2 09/03/2013 Height 64 inches 5'4" Weight 267.00 lb Heart Rate 88 /min BP Systolic Sitting 156 mmHg BP Diastolic Sitting 90 mmHg BMI (Body Mass Index) 45.8 kg/m2 07/30/2013 Height 64 inches 5'4" Weight 259.75 lb BP Systolic Sitting 154 mmHg BP Diastolic Sitting 98 mmHg BMI (Body Mass Index) 44.6 kg/m2 07/17/2013 Heart Rate 68 /min BP Systolic 147 mmHg Auto BP Diastolic 99 mmHg Auto BP Systolic Sitting 146 mmHg manual BP Diastolic Sitting 94 mmHg manual Respiratory Rate 20 /min 05/15/2013 Height 62 inches 5'2" Weight 251.00 lb Heart Rate 76 /min BP Systolic 110 mmHg BP Diastolic 80 mmHg Respiratory Rate 16 /min BMI (Body Mass Index) 45.9 kg/m2 04/06/2012 Height 62 inches 5'2" Weight 263.00 lb Heart Rate 76 /min BP Systolic Sitting 115 mmHg BP Diastolic Sitting 72 mmHg Respiratory Rate 20 /min BMI (Body Mass Index) 48.1 kg/m2 06/15/2011 Height 62 inches 5'2" Weight 267.00 lb Heart Rate 75 /min BP Systolic 132 mmHg BP Diastolic 80 mmHg BMI (Body Mass Index) 48.8 kg/m2 05/04/2009 Height 62 inches 5'2" Weight 263.00 lb Heart Rate 63 /min BP Systolic Sitting 128 mmHg L BP Diastolic Sitting 80 mmHg L BMI (Body Mass Index) 48.1 kg/m2 07/29/2008 Height 62 inches 5'2" Weight 266.00 lb Heart Rate 61 /min BP Systolic Sitting 136 mmHg BP Diastolic Sitting 84 mmHg BMI (Body Mass Index) 48.6 kg/m2 01/02/2008 Height 62 inches 5'2" Weight 262.00 lb Heart Rate 63 /min BP Systolic Sitting 120 mmHg L BP Diastolic Sitting 70 mmHg L BMI (Body Mass Index) 47.9 kg/m2 01/19/2007 Height 62 inches 5'2" Weight 258.00 lb Heart Rate 67 /min BP Systolic Sitting 140 mmHg L BP Diastolic Sitting 94 mmHg L BMI (Body Mass Index) 47.2 kg/m2 06/26/2006 Height 62 inches 5'2" Weight 255.00 lb Heart Rate 63 /min BP Systolic Sitting 140 mmHg L BP Diastolic Sitting 88 mmHg L BMI (Body Mass Index) 46.6 kg/m2 06/08/2006 Height 62 inches 5'2" Heart Rate 64 /min reg BP Systolic Sitting 170 mmHg BP Diastolic Sitting 100 mmHg BP Systolic Standing 156 mmHg BP Diastolic Standing 100 mmHg 05/31/2006 Height 62 inches 5'2" Weight 256.00 lb Heart Rate 60 /min reg BP Systolic Sitting 140 mmHg BP Diastolic Sitting 84 mmHg BP Systolic Standing 150 mmHg BP Diastolic Standing 88 mmHg BMI (Body Mass Index) 46.8 kg/m2 04/19/2006 Height 62 inches 5'2" BP Systolic Sitting 154 mmHg BP Diastolic Sitting 92 mmHg BP Systolic Standing 158 mmHg BP Diastolic Standing 98 mmHg 04/19/2006 Height 62 inches 5'2" 04/05/2006 Height 62 inches 5'2" Weight 250.00 lb Heart Rate 62 /min BP Systolic Sitting 150 mmHg BP Diastolic Sitting 100 mmHg BP Systolic Standing 154 mmHg BP Diastolic Standing 104 mmHg BMI (Body Mass Index) 45.7 kg/m2 11/24/2005 Height 62 inches 5'2" Weight 258.00 lb Heart Rate 61 /min BP Systolic Sitting 140 mmHg R BP Diastolic Sitting 80 mmHg R BP Systolic Standing 134 mmHg R BP Diastolic Standing 80 mmHg R BMI (Body Mass Index) 47.2 kg/m2 07/14/2005 Height 62 inches 5'2" Weight 254.00 lb Heart Rate 84 /min BP Systolic Sitting 130 mmHg BP Diastolic Sitting 90 mmHg BP Systolic Standing 124 mmHg BP Diastolic Standing 90 mmHg BMI (Body Mass Index) 46.5 kg/m2 06/13/2005 Height 62 inches 5'2" Weight 259.00 lb Heart Rate 72 /min BP Systolic Sitting 130 mmHg L BP Diastolic Sitting 100 mmHg L O2 % BldC Oximetry 96 % BMI (Body Mass Index) 47.4 kg/m2 Results Test Date Test Result H/L Range Note Laboratory test finding 02/09/2018 Hemoglobin A1c (Glyco 6.4 % High 4.0- 5.6 1 HGB) Basic Metabolic Panel 02/09/2018 Sodium 138 mmol/L 135-145 Potassium 4.0 mmol/L 3.5-5.0 Chloride 105 mmol/L 101-111 Co2 Carbon Dioxide 26 mmol/L 22-32 Anion Gap 7 mmol/L 2-11 Glucose 134 mg/dL High 70-100 Blood Urea Nitrogen 13 mg/dL 6-24 Creatinine 0.86 mg/dL 0.67-1.17 BUN/Creatinine Ratio 15.1 8-20 Calcium 8.6 mg/dL 8.6-10.3 Egfr Non- 91.0 >60 Egfr 110.1 >60 2 Lipid Profile (Trig/Chol/HDL) 02/09/2018 Triglycerides 113 mg/dL 3 Cholesterol 102 mg/dL 4 HDL Cholesterol 31.4 mg/dL 5 LDL Cholesterol 48 mg/dL 6 CBC Auto Diff 02/09/2018 White Blood Count 6.6 10^3/uL 3.5-10.8 Red Blood Count 4.73 10^6/uL 4.00-5.40 Hemoglobin 13.1 g/dL Low 14.0-18.0 Hematocrit 39 % Low 42-52 Mean Corpuscular Volume 82 fL 80-94 Mean Corpuscular Hemoglobin 28 pg 27-31 Mean Corpuscular HGB Conc 34 g/dL 31-36 Red Cell Distribution Width 14 % 10.5-15 Platelet Count 227 10^3/uL 150-450 Mean Platelet Volume 8.6 um3 7.4-10.4 Abs Neutrophils 4.1 10^3/uL 1.5-7.7 Abs Lymphocytes 1.8 10^3/uL 1.0-4.8 Abs Monocytes 0.6 10^3/uL 0-0.8 Abs Eosinophils 0.1 10^3/uL 0-0.6 Abs Basophils 0 10^3/uL 0-0.2 Abs Nucleated RBC 0 10^3/uL Granulocyte % 62.3 % 38-83 Lymphocyte % 27.4 % 25-47 Monocyte % 8.4 % High 0-7 Eosinophil % 1.5 % 0-6 Basophil % 0.4 % 0-2 Nucleated Red Blood Cells % 0.1 Liver Function Panel 02/09/2018 Total Protein 6.9 g/dL 6.4-8.9 Albumin 3.8 g/dL 3.2-5.2 Globulin 3.1 g/dL 2-4 Albumin/Globulin Ratio 1.2 1-3 Total Bilirubin 0.60 mg/dL 0.2-1.0 Direct Bilirubin 0.10 mg/dL 0.03-0.18 Indirect Bilirubin 0.5 mg/dL 0.3-1.0 Alkaline Phosphatase 75 U/L 34-104 Alt 33 U/L 7-52 Ast 27 U/L 13-39 Lipid Panel - [facility] 12/12/2017 Creatine Kinase(CK) 102 U/L 10-223 7 Comp Metabolic Panel 12/12/2017 Sodium 140 mmol/L 139-145 Potassium 4.2 mmol/L 3.5-5.0 Chloride 105 mmol/L 101-111 Co2 Carbon Dioxide 26 mmol/L 22-32 Anion Gap 9 mmol/L 2-11 Glucose 131 mg/dL High 70-100 Blood Urea Nitrogen 16 mg/dL 6-24 Creatinine 0.88 mg/dL 0.67-1.17 BUN/Creatinine Ratio 18.2 8-20 Calcium 9.1 mg/dL 8.6-10.3 Total Protein 7.3 g/dL 6.4-8.9 Albumin 4.0 g/dL 3.2-5.2 Globulin 3.3 g/dL 2-4 Albumin/Globulin Ratio 1.2 1-3 Total Bilirubin 0.60 mg/dL 0.2-1.0 Alkaline Phosphatase 80 U/L 34-104 Alt 26 U/L 7-52 Ast 19 U/L 13-39 Egfr Non- 88.6 >60 Egfr 114.0 >60 8 Lipid Profile (Trig/Chol/HDL) 12/12/2017 Triglycerides 122 mg/dL 9 Cholesterol 97 mg/dL 10 HDL Cholesterol 30.8 mg/dL 11 LDL Cholesterol 42 mg/dL 12 CBC Auto Diff 12/12/2017 White Blood Count 7.3 10^3/uL 3.5-10.8 Red Blood Count 4.93 10^6/uL 4.0-5.4 Hemoglobin 13.4 g/dL Low 14.0-18.0 Hematocrit 41 % Low 42-52 Mean Corpuscular Volume 82 fL 80-94 Mean Corpuscular Hemoglobin 27 pg 27-31 Mean Corpuscular HGB Conc 33 g/dL 31-36 Red Cell Distribution Width 14 % 10.5-15 Platelet Count 256 10^3/uL 150-450 Mean Platelet Volume 9.2 um3 7.4-10.4 Abs Neutrophils 4.6 10^3/uL 1.5-7.7 Abs Lymphocytes 2.0 10^3/uL 1.0-4.8 Abs Monocytes 0.5 10^3/uL 0-0.8 Abs Eosinophils 0.2 10^3/uL 0-0.6 Abs Basophils 0.1 10^3/uL 0-0.2 Abs Nucleated RBC 0 10^3/uL Granulocyte % 62.5 % 38-83 Lymphocyte % 27.2 % 25-47 Monocyte % 6.9 % 0-7 Eosinophil % 2.6 % 0-6 Basophil % 0.8 % 0-2 Nucleated Red Blood Cells % 0.1 Laboratory test finding 12/12/2017 Magnesium 2.2 mg/dL 1.9-2.7 13 TSH (Thyroid Stim Horm) 1.08 mcIU/mL 0.34-5.60 14 Comp Metabolic Panel 04/26/2017 Sodium 138 mmol/L 133-145 Potassium 4.1 mmol/L 3.5-5.0 Chloride 104 mmol/L 101-111 Co2 Carbon Dioxide 29 mmol/L 22-32 Anion Gap 5 mmol/L 2-11 Glucose 115 mg/dL High 70-100 Blood Urea Nitrogen 14 mg/dL 6-24 Creatinine 0.87 mg/dL 0.67-1.17 BUN/Creatinine Ratio 16.1 8-20 Calcium 9.0 mg/dL 8.6-10.3 Total Protein 7.3 g/dL 6.4-8.9 Albumin 4.0 g/dL 3.2-5.2 Globulin 3.3 g/dL 2-4 Albumin/Globulin Ratio 1.2 1-3 Total Bilirubin 0.60 mg/dL 0.2-1.0 Alkaline Phosphatase 70 U/L 34-104 Alt 23 U/L 7-52 Ast 19 U/L 13-39 Egfr Non- 90.1 >60 Egfr 115.9 >60 15 Lipid Panel - [facility] 04/26/2017 Creatine Kinase(CK) 98 U/L 10-223 Lipid Profile (Trig/Chol/HDL) 04/26/2017 Triglycerides 71 mg/dL 16 Cholesterol 82 mg/dL 17 HDL Cholesterol 31.3 mg/dL 18 LDL Cholesterol 37 mg/dL 19 CBC Auto Diff 04/26/2017 White Blood Count 6.5 10^3/uL 3.5-10.8 Red Blood Count 4.67 10^6/uL 4.0-5.4 Hemoglobin 12.3 g/dL Low 14.0-18.0 Hematocrit 38 % Low 42-52 Mean Corpuscular Volume 81 fL 80-94 Mean Corpuscular Hemoglobin 26 pg Low 27-31 Mean Corpuscular HGB Conc 33 g/dL 31-36 Red Cell Distribution Width 13 % 10.5-15 Platelet Count 240 10^3/uL 150-450 Mean Platelet Volume 10 um3 7.4-10.4 Abs Neutrophils 4.1 10^3/uL 1.5-7.7 Abs Lymphocytes 1.8 10^3/uL 1.0-4.8 Abs Monocytes 0.5 10^3/uL 0-0.8 Abs Eosinophils 0.1 10^3/uL 0-0.6 Abs Basophils 0 10^3/uL 0-0.2 Abs Nucleated RBC 0 10^3/uL Granulocyte % 63.2 % 38-83 Lymphocyte % 26.8 % 25-47 Monocyte % 8.0 % 1-9 Eosinophil % 1.6 % 0-6 Basophil % 0.4 % 0-2 Nucleated Red Blood Cells % 0 Laboratory test finding 04/26/2017 B-Type Natriuretic Peptide BNP 95 pg/mL 20 Magnesium 2.0 mg/dL 1.9-2.7 Iron & Iron Binding Capacity 04/26/2017 Iron 47 g/dL Low 50-212 Unsaturated Iron Binding 374 g/dL Total Iron Binding Capacity 421 g/dL 250-450 % Iron Saturation 11 % Low 15-55 Laboratory test finding 04/26/2017 TSH (Thyroid Stim 1.11 mcIU/mL 0.34- 5.60 Horm) Comp Metabolic Panel 12/25/2016 Sodium 132 mmol/L Low 133-145 Potassium 3.7 mmol/L 3.5-5.0 Chloride 100 mmol/L Low 101-111 Co2 Carbon Dioxide 24 mmol/L 22-32 Anion Gap 8 mmol/L 2-11 Glucose 144 mg/dL High 70-100 Blood Urea Nitrogen 15 mg/dL 6-24 Creatinine 0.89 mg/dL 0.67-1.17 BUN/Creatinine Ratio 16.9 8-20 Calcium 9.1 mg/dL 8.6-10.3 Total Protein 8.1 g/dL 6.4-8.9 Albumin 4.2 g/dL 3.2-5.2 Globulin 3.9 g/dL 2-4 Albumin/Globulin Ratio 1.1 1-3 Total Bilirubin 0.90 mg/dL 0.2-1.0 Alkaline Phosphatase 76 U/L 34-104 Alt 24 U/L 7-52 Ast 19 U/L 13-39 Egfr Non- 87.8 >60 Egfr 112.9 >60 21 Laboratory test finding 12/25/2016 C Reactive Protein 27.52 mg/L High < 5.00 22 Hemoglobin A1c (Glyco HGB) 6.0 % High Less than 6.0 23 Inr/Protime 12/25/2016 Inr 0.99 0.89-1.11 Laboratory test finding 12/25/2016 Lactic Acid 1.3 mmol/L 0.5-2.0 24 CBC Auto Diff 12/25/2016 White Blood Count 12.3 10^3/uL High 3.5-10.8 Red Blood Count 4.87 10^6/uL 4.0-5.4 Hemoglobin 13.4 g/dL Low 14.0-18.0 Hematocrit 41 % Low 42-52 Mean Corpuscular Volume 84 fL 80-94 Mean Corpuscular Hemoglobin 28 pg 27-31 Mean Corpuscular HGB Conc 33 g/dL 31-36 Red Cell Distribution Width 14 % 10.5-15 Platelet Count 230 10^3/uL 150-450 Mean Platelet Volume 9 um3 7.4-10.4 Abs Neutrophils 9.2 10^3/uL High 1.5-7.7 Abs Lymphocytes 2.0 10^3/uL 1.0-4.8 Abs Monocytes 0.9 10^3/uL High 0-0.8 Abs Eosinophils 0.1 10^3/uL 0-0.6 Abs Basophils 0.1 10^3/uL 0-0.2 Abs Nucleated RBC 0 10^3/uL Granulocyte % 74.7 % 38-83 Lymphocyte % 16.5 % Low 25-47 Monocyte % 7.5 % 1-9 Eosinophil % 0.7 % 0-6 Basophil % 0.6 % 0-2 Nucleated Red Blood Cells % 0 Laboratory test 10/21/2016 Surgical Pathology SEE RESULT BELOW 25 finding Lipid Panel - [facility] 02/29/2016 Creatine Kinase(CK) 113 U/L 10-223 26, 27 Comp Metabolic Panel 02/29/2016 Sodium 140 mmol/L 133-145 26 Potassium 4.1 mmol/L 3.5-5.0 26 Chloride 107 mmol/L 101-111 26 Co2 Carbon Dioxide 26 mmol/L 22-32 26 Anion Gap 7 mmol/L 2-11 26 Glucose 124 mg/dL High 70-100 26 Blood Urea Nitrogen 15 mg/dL 6-24 26 Creatinine 0.87 mg/dL 0.67-1.17 26 BUN/Creatinine Ratio 17.2 8-20 26 Calcium 8.9 mg/dL 8.6-10.3 26 Total Protein 7.0 g/dL 6.4-8.9 26 Albumin 3.8 g/dL 3.2-5.2 26 Globulin 3.2 g/dL 2-4 26 Albumin/Globulin Ratio 1.2 1-3 26 Total Bilirubin 0.30 mg/dL 0.2-1.0 26 Alkaline Phosphatase 72 U/L 34-104 26 Alt 26 U/L 7-52 26 Ast 21 U/L 13-39 26 Egfr Non- 90.4 >60 26 Egfr 116.3 >60 26, 28 Lipid Profile (Trig/Chol/HDL) 02/29/2016 Triglycerides 108 mg/dL 26, 29 Cholesterol 102 mg/dL 26, 30 HDL Cholesterol 30.5 mg/dL 26, 31 LDL Cholesterol 50 mg/dL 26, 32 CBC Auto Diff 02/29/2016 White Blood Count 5.7 10^3/uL 3.5-10.8 26 Red Blood Count 4.81 10^6/uL 4.0-5.4 26 Hemoglobin 12.9 g/dL Low 14.0-18.0 26 Hematocrit 39 % Low 42-52 26 Mean Corpuscular Volume 82 fL 80-94 26 Mean Corpuscular Hemoglobin 27 pg 27-31 26 Mean Corpuscular HGB Conc 33 g/dL 31-36 26 Red Cell Distribution Width 14 % 10.5-15 26 Platelet Count 240 10^3/uL 150-450 26 Mean Platelet Volume 9 um3 7.4-10.4 26 Abs Neutrophils 3.4 10^3/uL 1.5-7.7 26 Abs Lymphocytes 1.7 10^3/uL 1.0-4.8 26 Abs Monocytes 0.5 10^3/uL 0-0.8 26 Abs Eosinophils 0.1 10^3/uL 0-0.6 26 Abs Basophils 0.1 10^3/uL 0-0.2 26 Abs Nucleated RBC 0.02 10^3/uL 26 Granulocyte % 58.8 % 38-83 26 Lymphocyte % 30.2 % 25-47 26 Monocyte % 8.8 % 1-9 26 Eosinophil % 1.1 % 0-6 26 Basophil % 1.1 % 0-2 26 Nucleated Red Blood Cells % 0.3 26 Laboratory test finding 02/29/2016 Magnesium 2.0 mg/dL 1.9-2.7 26, 33 TSH (Thyroid Stim Horm) 1.29 mcIU/mL 0.34-5.60 26, 34 CBC Auto Diff 01/29/2015 White Blood Count 6.1 10^3/uL 4.8-10.8 26 Red Blood Count 4.89 10^6/uL 4.0-5.4 26 Hemoglobin 14.4 g/dL 14.0-18.0 26 Hematocrit 43 % 42-52 26 Mean Corpuscular Volume 87 fL 80-94 26 Mean Corpuscular Hemoglobin 29 pg 27-31 26 Mean Corpuscular HGB Conc 34 g/dL 31-36 26 Red Cell Distribution Width 14 % 10.5-15 26 Platelet Count 216 10^3/uL 150-450 26 Mean Platelet Volume 8 um3 7.4-10.4 26 Abs Neutrophils 3.3 10^3/uL 1.5-7.7 26 Abs Lymphocytes 2.0 10^3/uL 1.0-4.8 26 Abs Monocytes 0.6 10^3/uL 0-0.8 26 Abs Eosinophils 0.1 10^3/uL 0-0.6 26 Abs Basophils 0.1 10^3/uL 0-0.2 26 Abs Nucleated RBC 0.02 10^3/uL 26 Granulocyte % 54.3 % 38-83 26 Lymphocyte % 33.5 % 25-47 26 Monocyte % 9.4 % High 1-9 26 Eosinophil % 1.6 % 0-6 26 Basophil % 1.2 % 0-2 26 Nucleated Red Blood Cells % 0.3 26 Lipid Panel - [facility] 01/29/2015 Creatine Kinase(CK) 128 U/L 10-223 26, 35 Comp Metabolic Panel 01/29/2015 Sodium 139 mmol/L 133-145 26 Potassium 3.7 mmol/L 3.5-5.0 26 Chloride 104 mmol/L 101-111 26 Co2 Carbon Dioxide 29 mmol/L 22-32 26 Anion Gap 6 mmol/L 2-11 26 Glucose 105 mg/dL High 70-100 26 Blood Urea Nitrogen 9 mg/dL 6-24 26 Creatinine 0.73 mg/dL 0.67-1.17 26 BUN/Creatinine Ratio 12.3 8-20 26 Calcium 8.6 mg/dL 8.6-10.3 26 Total Protein 7.1 g/dL 6.4-8.9 26 Albumin 4.1 g/dL 3.2-5.2 26 Globulin 3.0 g/dL 2-4 26 Albumin/Globulin Ratio 1.4 1-3 26 Total Bilirubin 0.60 mg/dL 0.2-1.0 26 Alkaline Phosphatase 71 U/L 34-104 26 Alt 33 U/L 7-52 26 Ast 26 U/L 13-39 26 Egfr Non- 111.1 >60 26 Egfr 142.9 >60 26, 36 Lipid Profile (Trig/Chol/HDL) 01/29/2015 Triglycerides 125 mg/dL 26, 37 Cholesterol 119 mg/dL 26, 38 HDL Cholesterol 29.0 mg/dL 26, 39 LDL Cholesterol 65 mg/dL 26, 40 Lipid Panel - [facility] 02/14/2014 Creatine Kinase 137 U/L 10-223 41, 42 Comp Metabolic Panel 02/14/2014 Sodium 139 mmol/L 133-145 41 Potassium 3.9 mmol/L 3.7-5.6 41 Chloride 105 mmol/L 101-111 41 Co2 Carbon Dioxide 28 mmol/L 22-32 41 Anion Gap 6 mmol/L 2-11 41 Glucose 108 mg/dL High 70-100 41 Blood Urea Nitrogen 11 mg/dL 6-24 41 Creatinine 0.78 mg/dL 0.67-1.17 41 BUN/Creatinine Ratio 14.1 8-20 41 Calcium 8.8 mg/dL 8.6-10.3 41 Total Protein 7.2 g/dL 6.4-8.9 41 Albumin 4.0 g/dL 3.2-5.2 41 Globulin 3.2 g/dL 2-4 41 Albumin/Globulin Ratio 1.3 1-3 41 Total Bilirubin 0.60 mg/dL 0.2-1.0 41 Alkaline Phosphatase 69 U/L 34-104 41 Alt 26 U/L 7-52 41 Ast 19 U/L 13-39 41 Egfr Non- 103.3 >60 41 Egfr 132.9 >60 41, 43 Lipid Profile (Trig/Chol/HDL) 02/14/2014 Triglycerides 124 mg/dL 41, 44 Cholesterol 83 mg/dL 41, 45 HDL Cholesterol 23.7 mg/dL 41, 46 LDL Cholesterol 35 mg/dL 41, 47 Laboratory test finding 02/14/2014 Erythrocyte Sed Rate 24 mm/Hr High 0- 20 CBC Auto Diff 02/14/2014 White Blood Count 6.0 10^3/uL 4.8-10.8 Red Blood Count 4.64 10^6/uL 4.0-5.4 Hemoglobin 13.7 g/dL Low 14.0-18.0 Hematocrit 40 % Low 42-52 Mean Corpuscular Volume 86 fL 80-94 Mean Corpuscular Hemoglobin 30 pg 27-31 Mean Corpuscular HGB Conc 35 g/dL 31-36 Red Cell Distribution Width 13 % 10.5-15 Platelet Count 216 10^3/uL 150-450 Mean Platelet Volume 9 um3 7.4-10.4 Abs Neutrophils 2.9 10^3/uL 1.5-7.7 Abs Lymphocytes 2.3 10^3/uL 1.0-4.8 Abs Monocytes 0.5 10^3/uL 0-0.8 Abs Eosinophils 0.2 10^3/uL 0-0.6 Abs Basophils 0 10^3/uL 0-0.2 Abs Nucleated RBC 0.01 10^3/uL Granulocyte % 49.2 % 38-83 Lymphocyte % 38.7 % 25-47 Monocyte % 8.9 % 1-9 Eosinophil % 2.7 % 0-6 Basophil % 0.5 % 0-2 Nucleated Red Blood Cells % 0.1 Laboratory test finding 02/14/2014 C Reactive Protein 2.11 mg/L < 5.00 48 Wound Culture/Sensi 02/10/2014 Wound/Misc Culture-Gram (SEE NOTE) 49 Stain Laboratory test finding 02/10/2014 Anaerobic Culture (SEE NOTE) 50 Laboratory test finding 01/24/2014 B Type Natriuretic 89 pg/mL 51 Peptide Comp Metabolic Panel 01/24/2014 Sodium 138 mmol/L 133-145 Potassium 4.4 mmol/L 3.7-5.6 Chloride 106 mmol/L 101-111 Co2 Carbon Dioxide 27 mmol/L 22-32 Anion Gap 5 mmol/L 2-11 Glucose 87 mg/dL 70-100 Blood Urea Nitrogen 12 mg/dL 6-24 Creatinine 1.09 mg/dL 0.67-1.17 BUN/Creatinine Ratio 11.0 8-20 Calcium 8.9 mg/dL 8.6-10.3 Total Protein 7.5 g/dL 6.4-8.9 Albumin 4.3 g/dL 3.2-5.2 Globulin 3.2 g/dL 2-4 Albumin/Globulin Ratio 1.3 1-3 Total Bilirubin 0.50 mg/dL 0.2-1.0 Alkaline Phosphatase 67 U/L 34-104 Alt 27 U/L 7-52 Ast 23 U/L 13-39 Egfr Non- 70.2 >60 Egfr 90.3 >60 52 Comp Metabolic Panel 07/23/2013 Sodium 139 mmol/L 133-145 Potassium 3.7 mmol/L 3.5-5.0 Chloride 106 mmol/L 101-111 Co2 Carbon Dioxide 29.0 mmol/L 22-32 Anion Gap 4.0 mmol/L 2-11 Glucose 103 mg/dL High 70-100 Blood Urea Nitrogen 9 mg/dL 6-24 Creatinine 0.70 mg/dL 0.50-1.40 BUN/Creatinine Ratio 12.9 8-20 Calcium 8.8 mg/dL 8.1-9.9 Total Protein 7.1 g/dL 6.2-8.1 Albumin 4.0 g/dL 3.6-5.4 Globulin 3.1 g/dL 2-4 Albumin/Globulin Ratio 1.3 1-3 Total Bilirubin 1.0 mg/dL 0.4-1.5 Alkaline Phosphatase 70 U/L 30-110 Alt 33 U/L 14-54 Ast 25 U/L 12-42 Egfr Non- 117.5 >60 Egfr 151.1 >60 53 CBC Auto Diff 07/23/2013 White Blood Count 9.4 10^3/uL 4.8-10.8 Red Blood Count 4.74 10^6/uL 4.0-5.4 Hemoglobin 13.8 g/dL Low 14.0-18.0 Hematocrit 40 % Low 42-52 Mean Corpuscular Volume 85 fL 80-94 Mean Corpuscular Hemoglobin 29 pg 27-31 Mean Corpuscular HGB Conc 34 g/dL 31-36 Red Cell Distribution Width 13 % 10.5-15 Platelet Count 251 10^3/uL 150-450 Mean Platelet Volume 9 um3 7.4-10.4 Abs Neutrophils 5.4 10^3/uL 1.5-7.7 Abs Lymphocytes 3.1 10^3/uL 1.0-4.8 Abs Monocytes 0.7 10^3/uL 0-0.8 Abs Eosinophils 0.1 10^3/uL 0-0.6 Abs Basophils 0.1 10^3/uL 0-0.2 Abs Nucleated RBC 0.01 10^3/uL Granulocyte % 57.4 % 38-83 Lymphocyte % 32.8 % 25-47 Monocyte % 7.8 % 1-9 Eosinophil % 1.2 % 0-6 Basophil % 0.8 % 0-2 Nucleated Red Blood Cells % 0.1 Lipid Panel - [facility] 02/15/2013 Creatine Kinase 145 U/L 0-200 CMP Panel 02/15/2013 Sodium 141 mmol/L 133-145 Potassium 4.0 mmol/L 3.5-5.0 Chloride 108 mmol/L 101-111 Co2 Carbon Dioxide 27.0 mmol/L 22-32 Anion Gap 6.0 mmol/L 2-11 Glucose 110 mg/dL High 70-100 Blood Urea Nitrogen 10 mg/dL 6-24 Creatinine 1.00 mg/dL 0.50-1.40 BUN/Creatinine Ratio 10.0 8-20 Calcium 9.2 mg/dL 8.1-9.9 Total Protein 7.5 g/dL 6.2-8.1 Albumin 4.1 g/dL 3.6-5.4 Globulin 3.4 g/dL 2-4 Albumin/Globulin Ratio 1.2 1-3 Total Bilirubin 1.1 mg/dL 0.4-1.5 Alkaline Phosphatase 98 U/L 30-110 Alt 35 U/L 14-54 Ast 29 U/L 12-42 Egfr Non- 77.9 >60 Egfr 100.1 >60 54 Lipid Panel 02/15/2013 Triglycerides 115 mg/dL 40-200 Cholesterol 117 mg/dL Less than 200 HDL Cholesterol 29 mg/dL Low 40-60 55 Cholesterol/HDL Ratio 4.0 Average 1-4.44 LDL Cholesterol 65.0 Less Than 100 56 Basic Metabolic Panel 09/27/2012 Sodium 138 mmol/L 133-145 Potassium 4.2 mmol/L 3.5-5.0 Chloride 105 mmol/L 101-111 Co2 Carbon Dioxide 28.0 mmol/L 22-32 Anion Gap 5.0 mmol/L 2-11 Glucose 129 mg/dL High 70-100 Blood Urea Nitrogen 10 mg/dL 6-24 Creatinine 0.70 mg/dL 0.50-1.40 BUN/Creatinine Ratio 14.3 8-20 Calcium 8.8 mg/dL 8.1-9.9 Egfr Non- 117.5 >60 Egfr 151.1 >60 57 Lipid Panel - [facility] 07/16/2012 Creatine Kinase 137 U/L 0-200 Comp Metabolic Panel 07/16/2012 Sodium 142 mmol/L 133-145 Potassium 3.8 mmol/L 3.5-5.0 Chloride 107 mmol/L 101-111 Co2 Carbon Dioxide 29.0 mmol/L 22-32 Anion Gap 6.0 mmol/L 2-11 Glucose 111 mg/dL High 70-100 Blood Urea Nitrogen 7 mg/dL 6-24 Creatinine 0.80 mg/dL 0.50-1.40 BUN/Creatinine Ratio 8.8 8-20 Calcium 8.9 mg/dL 8.1-9.9 Total Protein 7.0 g/dL 6.2-8.1 Albumin 3.7 g/dL 3.6-5.4 Globulin 3.3 g/dL 2-4 Albumin/Globulin Ratio 1.1 1-3 Total Bilirubin 0.7 mg/dL 0.4-1.5 Alkaline Phosphatase 79 U/L 30-110 Alt 34 U/L 14-54 Ast 26 U/L 12-42 Egfr Non- 101.1 >60 Egfr 130.0 >60 58 Lipid Profile (Trig/Chol/HDL) 07/16/2012 Triglycerides 101 mg/dL 40-200 Cholesterol 119 mg/dL Less than 200 HDL Cholesterol 31 mg/dL Low 40-60 59 Cholesterol/HDL Ratio 3.8 Average 1-4.44 LDL Cholesterol 67.8 mg/dL Less Than 100 60 CBC With Manual Diff 07/16/2012 White Blood Count 7.4 10^3/uL 4.8-10.8 Red Blood Count 4.69 10^6/uL 4.0-5.4 Hemoglobin 13.7 g/dL Low 14.0-18.0 Hematocrit 41 % Low 42-52 Mean Corpuscular Volume 87 fL 80-94 Mean Corpuscular Hemoglobin 29 pg 27-31 Mean Corpuscular HGB Conc 34 g/dL 31-36 Red Cell Distribution Width 14 % 10.5-15 Platelet Count 243 10^3/uL 150-450 Mean Platelet Volume 9 um3 7.4-10.4 Abs Neutrophils 4.5 10^3/uL 1.5-7.7 Abs Lymphocytes 2.2 10^3/uL 1.0-4.8 Abs Monocytes 0.5 10^3/uL 0-0.8 Abs Eosinophils 0.2 10^3/uL 0-0.6 Abs Basophils 0.1 10^3/uL 0-0.2 Abs Nucleated RBC 0 10^3/uL Neutrophil % 56 % 38-83 Band % 4 % 0-8 Lymphocytes % 31 % 25-47 Monocytes % 5 % 0-13 Eosinophils % 1 % 0-6 Basophil % 2 % 0-2 Reactive Lymph % 1 % 0-6 RBC Morphology Normal Normal Laboratory test finding 07/16/2012 Vitamin B12 325 pg/mL 180-914 Iron & Iron Binding Capacity 07/16/2012 Iron 73 g/dL 45-182 Unsaturated Iron Binding 237 g/dL Total Iron Binding Capacity 310 g/dL 250-450 Transferrin 221.6 % Iron Saturation 24 % 15-55 Laboratory test finding 07/16/2012 Magnesium 2.4 mg/dL 1.7-2.6 Comp Metabolic Panel 04/18/2012 Sodium 140 mmol/L 133-145 Potassium 3.9 mmol/L 3.5-5.0 Chloride 106 mmol/L 101-111 Co2 Carbon Dioxide 27.0 mmol/L 22-32 Anion Gap 7.0 mmol/L 2-11 Glucose 121 mg/dL High 70-100 Blood Urea Nitrogen 11 mg/dL 6-24 Creatinine 0.80 mg/dL 0.50-1.40 BUN/Creatinine Ratio 13.8 8-20 Calcium 8.5 mg/dL 8.1-9.9 Total Protein 6.8 GM/DL 6.2-8.1 Albumin 3.7 GM/DL 3.6-5.4 Globulin 3.1 GM/DL 2-4 Albumin/Globulin Ratio 1.2 1-3 Total Bilirubin 0.9 mg/dL 0.1-1.0 61 Alkaline Phosphatase 83 U/L 30-110 Alt 34 U/L 14-54 Ast 27 U/L 12-42 Egfr Non- 101.1 >60 Egfr 130.0 >60 62 Lipid Profile (Trig/Chol/HDL) 04/18/2012 Triglycerides 116 mg/dL 40-200 Cholesterol 122 mg/dL Less than 200 63 HDL Cholesterol 30 mg/dL Low 40-60 64 Cholesterol/HDL Ratio 4.1 AVERAGE 1-4.44 LDL Cholesterol 68.8 mg/dL Less Than 100 Laboratory test finding 04/18/2012 Creatine Kinase 186 U/L 0-200 Laboratory test finding 04/18/2012 TSH (Thyroid Stimulating 0.58 MIU/ML 0.34-5.60 Horm) Hemoglobin A1c 6.0 % Less than 6.0 65 CBC No Diff 04/18/2012 White Blood Count 6.3 10^3/uL 4.8-10.8 Red Blood Count 4.69 10^6/uL 4.0-5.4 Hemoglobin 13.8 g/dL Low 14.0-18.0 Hematocrit 40 % Low 42-52 Mean Corpuscular Volume 86 fL 80-94 Mean Corpuscular Hemoglobin 29 pg 27-31 Mean Corpuscular HGB Conc 34 g/dL 31-36 Red Cell Distribution Width 14 % 10.5-15 Platelet Count 249 10^3/uL 150-450 Mean Platelet Volume 9 um3 7.4-10.4 Iron & Iron Binding Capacity 04/18/2012 Iron 95 UG/ML 45-182 Unsaturated Iron Binding 209 g/dL Total Iron Binding Capacity 304 g/dL 250-450 Transferrin 216.9 % Iron Saturation 31 % 15-55 Laboratory test finding 04/18/2012 Vitamin B12 307 pg/mL 180-914 Folate 7.7 NG/ML 2-16 CBC Auto Diff 06/17/2011 White Blood Count 6.9 CUMM 4.8-10.8 Red Cell Count 4.86 CUMM 4.6-6.2 Hemoglobin 14.4 g/dL 14.0-18.0 Hematocrit 41 % Low 42-52 Mean Corpuscular Volume 85 um3 80-94 Mean Corpuscular Hemoglob 30 pg 27-31 Mean Corpuscular HGB Cone 35 g/dL 32-36 Redcell Distribution WDTH 13 % 10.5-15 Platelet Count 263 CUMM 150-450 Mean Platelet Volume 9.2 um3 7.4-10.4 Gran % 58.2 % 38-83 Lymph % 32.3 % 25-47 Mononuclear % 6.8 % 1-9 Eosinophil % 2.3 % 0-6 Basophil % 0.4 % 0-2 Abs Lymphs 2.2 1.0-4.8 Abs Mononuclear 0.5 0-0.8 Absolute Neutrophil Count 4.0 1.5-7.7 Abs Eosinophils 0.2 0-0.6 Abs Basophils 0 0-0.2 Laboratory test finding 06/17/2011 CPK (Creatine Kinase) 217 U/L High 0- 200 Lipid Profile (Trig/Chol/HDL) 06/17/2011 Triglyceride 93 mg/dL 40-200 Cholesterol 124 mg/dL Less Than 200 66 High Density Lipoprotein 27 mg/dL Low 40-60 67 Cholesterol/HDL Ratio 4.59 AVERAGE 1-4.97 Low Density Lipoprotein 78 mg/dL Less Than 100 68 Comp Metabolic Panel 06/17/2011 Sodium 141 mmol/L 135-145 Potassium 3.9 mmol/L 3.5-5.0 Chloride 104 mmol/L 101-111 Co2 (Carbon Dioxide) 28.0 mmol/L 22-32 Anion Gap 9.0 mmol/L 2-11 69 Glucose 95 mg/dL 70-100 BUN 7 mg/dL 6-24 Creatinine 0.9 mg/dL 0.50-1.40 One Over Creatinine 1.11 BUN/Creatinine Ratio 7.8 Low 8-20 Calcium 8.9 mg/dL 8.1-9.9 Total Protein 6.7 GM/DL 6.2-8.1 Albumin 3.9 GM/DL 3.6-5.4 Globulin 2.8 GM/DL 2-4 Albumin/Globulin Ratio 1.4 1-3 Bilirubin Total 0.7 mg/dL 0.4-1.5 70 Alkaline Phosphatase 82 U/L 39-117 Alt (SGPT) 36 U/L 17-63 Ast (Sgot) 31 U/L 12-42 eGFR Non- 88.6 > 60 eGFR 114.0 > 60 71 Lipid Profile (Trig/Chol/HDL) 10/05/2010 Triglyceride 97 mg/dL 40-200 Cholesterol 159 mg/dL Less Than 200 72 High Density Lipoprotein 36 mg/dL Low 40-60 73 Cholesterol/HDL Ratio 4.42 AVERAGE 1-4.97 Low Density Lipoprotein 104 mg/dL High Less Than 100 74 Comp Metabolic Panel 10/05/2010 Sodium 140 mmol/L 135-145 Potassium 3.5 mmol/L 3.5-5.0 Chloride 106 mmol/L 101-111 Co2 (Carbon Dioxide) 26.0 mmol/L 22-32 Anion Gap 8.0 mmol/L 2-11 75 Glucose 105 mg/dL High 70-100 BUN 10 mg/dL 6-24 Creatinine 0.80 mg/dL 0.50-1.40 One Over Creatinine 1.20 BUN/Creatinine Ratio 12.5 8-20 Calcium 8.5 mg/dL 8.1-9.9 Total Protein 6.9 GM/DL 6.2-8.1 Albumin 4.0 GM/DL 3.6-5.4 Globulin 2.9 GM/DL 2-4 Albumin/Globulin Ratio 1.4 1-3 Bilirubin Total 0.7 mg/dL 0.4-1.5 76 Alkaline Phosphatase 69 U/L 39-117 Alt (SGPT) 32 U/L 17-63 Ast (Sgot) 31 U/L 12-42 eGFR Non- 101.5 > 60 eGFR 130.5 > 60 77 Lipid Panel - [facility] 10/05/2010 CPK (Creatine Kinase) 224 U/L High 0-200 CBC With Electronic Diff 10/05/2010 White Blood Count 6.2 CUMM 4.8-10.8 Red Cell Count 4.88 CUMM 4.6-6.2 Hemoglobin 14.2 g/dL 14.0-18.0 Hematocrit 42 % 42-52 Mean Corpuscular Volume 86 um3 80-94 Mean Corpuscular Hemoglob 29 pg 27-31 Mean Corpuscular HGB Cone 34 g/dL 32-36 Redcell Distribution WDTH 14 % 10.5-15 Platelet Count 252 CUMM 150-450 Mean Platelet Volume 9.4 um3 7.4-10.4 Gran % 64.2 % 38-83 Lymph % 25.8 % 25-47 Mononuclear % 7.6 % 1-9 Eosinophil % 1.8 % 0-6 Basophil % 0.6 % 0-2 Abs Lymphs 1.6 1.0-4.8 Abs Mononuclear 0.5 0-0.8 Absolute Neutrophil Count 4.0 1.5-7.7 Abs Eosinophils 0.1 0-0.6 Abs Basophils 0 0-0.2 Laboratory test finding 06/16/2009 CPK (Creatine Kinase) 174 U/L 0-200 Comp Metabolic Panel 06/16/2009 Sodium 139 mmol/L 135-145 Potassium 4.0 mmol/L 3.5-5.0 Chloride 105 mmol/L 101-111 Co2 (Carbon Dioxide) 29.0 mmol/L 22-32 Anion Gap 5.0 mmol/L 2-11 78 Glucose 89 mg/dL 70-100 79 BUN 10 mg/dL 6-24 Creatinine 0.80 mg/dL 0.50-1.40 One Over Creatinine 1.20 BUN/Creatinine Ratio 12.5 8-20 Calcium 8.9 mg/dL 8.1-9.9 80 Total Protein 7.2 GM/DL 6.2-8.1 Albumin 4.0 GM/DL 3.6-5.4 Globulin 3.2 GM/DL 2-4 Albumin/Globulin Ratio 1.3 1-3 Bilirubin Total 0.9 mg/dL 0.4-1.5 81 Alkaline Phosphatase 72 U/L 39-117 Alt (SGPT) 32 U/L 17-63 Ast (Sgot) 29 U/L 12-42 eGFR Non- 108.8 > 60 eGFR 131.6 > 60 82 Lipid Profile (Trig/Chol/HDL) 06/16/2009 Triglyceride 169 mg/dL 40-200 Cholesterol 147 mg/dL Less Than 200 83 High Density Lipoprotein 31 mg/dL Low 40-60 84 Cholesterol/HDL Ratio 4.74 AVERAGE 1-4.97 Low Density Lipoprotein 82 mg/dL Less Than 100 85 Lipid Profile (Trig/Chol/HDL) 07/30/2008 Triglyceride 104 mg/dL 40-200 Cholesterol 125 mg/dL Less Than 200 86 High Density Lipoprotein 29 mg/dL Low 40-60 87 Cholesterol/HDL Ratio 4.31 AVERAGE 1-4.97 Low Density Lipoprotein 75 mg/dL Less Than 100 88 Laboratory test finding 07/30/2008 CPK (Creatine Kinase) 191 U/L 0-200 CBC With Manual Diff 07/30/2008 White Blood Count 6.9 CUMM 4.8-10.8 Red Cell Count 5.01 CUMM 4.6-6.2 Hemoglobin 14.5 g/dL 14.0-18.0 Hematocrit 43 % 42-52 Mean Corpuscular Volume 85 um3 80-94 Mean Corpuscular Hemoglob 29 pg 27-31 Mean Corpuscular HGB Cone 34 g/dL 32-36 Redcell Distribution WDTH 13 % 10.5-15 Platelet Count 259 CUMM 150-450 Mean Platelet Volume 8.6 um3 7.4-10.4 Polysegmented Neutrophil 57 % 38-83 Lymphocyte 38 % 25-47 Monocyte 3 % 0-13 Eosenophil 2 % 0-6 Absolute Neutrophil Count 3.9 RBC Morphology NORMAL Comp Metabolic Panel 07/30/2008 Sodium 138 mmol/L 135-145 Potassium 3.8 mmol/L 3.5-5.0 Chloride 104 mmol/L 101-111 Co2 (Carbon Dioxide) 27.0 mmol/L 22-32 Anion Gap 7.0 mmol/L 2-11 89 Glucose 101 mg/dL High 70-100 90 BUN 16 mg/dL 6-24 Creatinine 1.00 mg/dL 0.50-1.40 One Over Creatinine 1.00 BUN/Creatinine Ratio 16.0 8-20 Calcium 8.7 mg/dL 8.1-9.9 91 Total Protein 6.7 GM/DL 6.2-8.1 Albumin 3.8 GM/DL 3.6-5.4 Globulin 2.9 GM/DL 2-4 Albumin/Globulin Ratio 1.3 1-3 Bilirubin Total 0.6 mg/dL 0.4-1.5 Alkaline Phosphatase 63 U/L 39-117 Alt (SGPT) 34 U/L 17-63 Ast (Sgot) 30 U/L 12-42 Lipid Profile 10/02/2006 Cholesterol/HDL Ratio 5.37 AVERAGE High 1-4.97 41 (Trig/Chol/HDL) Cholesterol 161 mg/dL Less Than 200 41, 92 Triglyceride 107 mg/dL 40-200 41 High Density Lipoprotein 30 mg/dL Low 40-60 41, 93 Low Density Lipoprotein 110 mg/dL High Less Than 100 41, 94 Comp Metabolic Panel 10/02/2006 One Over Creatinine 1.00 41 Anion Gap 4.0 mmol/L 2-11 41, 95 Albumin/Globulin Ratio 1.3 1-3 41 Albumin 3.9 GM/DL 3.6-5.4 41 Alkaline Phosphatase 65 U/L 39-117 41 Alt (SGPT) 29 U/L 17-63 41 Ast (Sgot) 30 U/L 12-42 41 BUN 10 mg/dL 6-24 41 Calcium 8.3 mg/dL Low 8.7-10.2 41 Chloride 108 mmol/L 101-111 41 Co2 (Carbon Dioxide) 26.0 mmol/L 22-32 41 Globulin 3.1 GM/DL 2-4 41 Glucose 103 mg/dL 70-105 41 Potassium 3.8 mmol/L 3.5-5.0 41 Sodium 138 mmol/L 135-145 41 Bilirubin Total 0.3 mg/dL Low 0.4-1.5 41 Total Protein 7.0 GM/DL 6.2-8.1 41 BUN/Creatinine Ratio 10.0 8-20 41 Creatinine 1.0 mg/dL 0.5-1.4 41 Laboratory test 10/02/2006 CPK (Creatine 234 U/L High 0-200 41 finding Kinase) Laboratory test 01/20/2006 CPK (Creatine 178 U/L 0-200 41 finding Kinase) Lipid Profile 01/20/2006 Cholesterol 160 mg/dL Less Than 200 41, 96 (Trig/Chol/HDL) Triglyceride 101 mg/dL 40-200 41 High Density Lipoprotein 28 mg/dL Low 40-60 41, 97 Low Density Lipoprotein 112 mg/dL High Less Than 100 41, 98 Cholesterol/HDL Ratio 5.71 AVERAGE High 1-4.97 41 Comp Metabolic Panel 01/20/2006 One Over Creatinine 1.11 41 Anion Gap 7.0 mmol/L 2-11 41, 99 Albumin/Globulin Ratio 1.1 1-3 41 Albumin 3.9 GM/DL 3.6-5.4 41 Alkaline Phosphatase 71 U/L 39-117 41 Alt (SGPT) 33 U/L 17-63 41 Ast (Sgot) 28 U/L 12-42 41 BUN 7 mg/dL 6-24 41 Calcium 9.0 mg/dL 8.7-10.2 41 Chloride 106 mmol/L 101-111 41 Co2 (Carbon Dioxide) 28.0 mmol/L 22-32 41 Globulin 3.4 GM/DL 2-4 41 Glucose 99 mg/dL 70-105 41 Potassium 4.0 mmol/L 3.5-5.0 41 Sodium 141 mmol/L 135-145 41 Bilirubin Total 0.8 mg/dL 0.4-1.5 41 Total Protein 7.3 GM/DL 6.2-8.1 41 BUN/Creatinine Ratio 7.8 Low 8-20 41 Creatinine 0.9 mg/dL 0.5-1.4 41 1 Therapeutic target for the treatment of diabetes mellitus patients is <7% HBA1C, and in selective patients <6.0%. Please refer to [place] [employer] diabetic care guidelines for further information. 2 Because ethnic data is not always readily available, this report includes an eGFR for both -Americans and non- Americans. The National Kidney Disease Education Program (NKDEP) does not endorse the use of the MDRD equation for patients that are not between the ages of 18 and 70, are , have extremes of body size, muscle mass, or nutritional status, or are non- or non-. According to the National Kidney Foundation, irrespective of diagnosis, the stage of the disease is based on the level of kidney function: Stage Description GFR(mL/min/1.73 m(2)) 1 Kidney damage with normal or decreased GFR 90 2 Kidney damage with mild decrease in GFR 60-89 3 Moderate decrease in GFR 30-59 4 Severe decrease in GFR 15-29 5 Kidney failure <15 (or dialysis) 3 Desirable: <150 Borderline High: 150-199 High: 200-499 Very High: >500 4 Desirable: <200 Borderline High: 200-239 High: >239 5 Low: <40 Desirable: 40-60 High: >60 6 Desirable: <100 Near Optimal: 100-129 Borderline High: 130-159 High: 160-189 Very High: >189 7 FASTING 8 Because ethnic data is not always readily available, this report includes an eGFR for both -Americans and non- Americans. The National Kidney Disease Education Program (NKDEP) does not endorse the use of the MDRD equation for patients that are not between the ages of 18 and 70, are , have extremes of body size, muscle mass, or nutritional status, or are non- or non-. According to the National Kidney Foundation, irrespective of diagnosis, the stage of the disease is based on the level of kidney function: Stage Description GFR(mL/min/1.73 m(2)) 1 Kidney damage with normal or decreased GFR 90 2 Kidney damage with mild decrease in GFR 60-89 3 Moderate decrease in GFR 30-59 4 Severe decrease in GFR 15-29 5 Kidney failure <15 (or dialysis) 9 Desirable: <150 Borderline High: 150-199 High: 200-499 Very High: >500 10 Desirable: <200 Borderline High: 200-239 High: >239 11 Low: <40 Desirable: 40-60 High: >60 12 Desirable: <100 Near Optimal: 100-129 Borderline High: 130-159 High: 160-189 Very High: >189 13 FASTING 14 FASTING 15 Because ethnic data is not always readily available, this report includes an eGFR for both -Americans and non- Americans. The National Kidney Disease Education Program (NKDEP) does not endorse the use of the MDRD equation for patients that are not between the ages of 18 and 70, are , have extremes of body size, muscle mass, or nutritional status, or are non- or non-. According to the National Kidney Foundation, irrespective of diagnosis, the stage of the disease is based on the level of kidney function: Stage Description GFR(mL/min/1.73 m(2)) 1 Kidney damage with normal or decreased GFR 90 2 Kidney damage with mild decrease in GFR 60-89 3 Moderate decrease in GFR 30-59 4 Severe decrease in GFR 15-29 5 Kidney failure <15 (or dialysis) 16 Desirable: <150 Borderline High: 150-199 High: 200-499 Very High: >500 17 Desirable: <200 Borderline High: 200-239 High: >239 18 Low: <40 Desirable: 40-60 High: >60 19 Desirable: <100 Near Optimal: 100-129 Borderline High: 130-159 High: 160-189 Very High: >189 20 >100 to <200 pg/mL: likely compensated congestive heart failure (CHF) 200 to 400 pg/mL: likely moderate CHF >400 pg/mL: likely moderate to severe CHF 21 Because ethnic data is not always readily available, this report includes an eGFR for both -Americans and non- Americans. The National Kidney Disease Education Program (NKDEP) does not endorse the use of the MDRD equation for patients that are not between the ages of 18 and 70, are , have extremes of body size, muscle mass, or nutritional status, or are non- or non-. According to the National Kidney Foundation, irrespective of diagnosis, the stage of the disease is based on the level of kidney function: Stage Description GFR(mL/min/1.73 m(2)) 1 Kidney damage with normal or decreased GFR 90 2 Kidney damage with mild decrease in GFR 60-89 3 Moderate decrease in GFR 30-59 4 Severe decrease in GFR 15-29 5 Kidney failure <15 (or dialysis) 22 Acute inflammation: >10.00 23 Therapeutic target for the treatment of diabetes Mellitus patients is <7% HBA1C, and in selective patients <6.0%.Please refer to [place] [employer] Diabetic care guidelines for further information. 24 [facility] Severe Sepsis and Septic Shock Management Bundle Measure requires all lactic acids initially measuring >2.0 mmol/L be repeated. 25 SEE RESULT BELOW Name: MARTY MEAD : [address]: Madhav Savage MD Acct: [id number] Unit: [id number] AGE: 56 Location: WOUND Re10/21/16 SEX: M Status: REG REF SPEC: [id number] FILIBERTO: 10/21/16-[address] [facility] [address]: Madhav Savage MD REQ: [id number] RECD: 10/21/16 STATUS: GLENDA SIMENTAL DR: Jarocho Lagunas MD _ ORDERED: LEVEL III FINAL DIAGNOSIS Skin, right lateral ankle, excision: -- Hemangioma with evidence of excoriation. PRE-OPERATIVE DIAGNOSIS [age] year old wound GROSS DESCRIPTION The specimen is received in formalin labeled, Right Lateral Ankle, and consists of a 0.6 x 0.4 cm speckled thorne-pink irregular skin shave, which is inked, bisected and submitted entirely in one cassette. Signed (signature on file) Fidencio Smith MD [id number] END OF REPORT * ML=Testing performed at Main Lab DEPARTMENT OF PATHOLOGY, [address] [place] [address] Fidencio Smith M.D. Director [facility] # [id number] 26 PT IS FASTING 27 PT IS FASTING 28 Because ethnic data is not always readily available, this report includes an eGFR for both -Americans and non- Americans. The National Kidney Disease Education Program (NKDEP) does not endorse the use of the MDRD equation for patients that are not between the ages of 18 and 70, are , have extremes of body size, muscle mass, or nutritional status, or are non- or non-. According to the National Kid[employer] Foundation, irrespective of diagnosis, the stage of the disease is based on the level of kidney function: Stage Description GFR(mL/min/1.73 m(2)) 1 Kidney damage with normal or decreased GFR 90 2 Kidney damage with mild decrease in GFR 60-89 3 Moderate decrease in GFR 30-59 4 Severe decrease in GFR 15-29 5 Kidney failure <15 (or dialysis) 29 Desirable <150 Borderline high 150-199 High 200-499 Very High >500 30 Desirable <200 Borderline high 200-239 High >239 31 Low <40 Desirable: 40-60 High: >60 32 Desirable: <100 mg/dL Near Optimal: 100-129 mg/dL Borderline High: 130-159 mg/dL High: 160-189 mg/dL Very High: >189 mg/dL 33 PT IS FASTING 34 PT IS FASTING 35 PT IS FASTING 36 Because ethnic data is not always readily available, this report includes an eGFR for both -Americans and non- Americans. The National Kidney Disease Education Program (NKDEP) does not endorse the use of the MDRD equation for patients that are not between the ages of 18 and 70, are , have extremes of body size, muscle mass, or nutritional status, or are non- or non-. According to the National Kid[employer] Foundation, irrespective of diagnosis, the stage of the disease is based on the level of kidney function: Stage Description GFR(mL/min/1.73 m(2)) 1 Kidney damage with normal or decreased GFR 90 2 Kidney damage with mild decrease in GFR 60-89 3 Moderate decrease in GFR 30-59 4 Severe decrease in GFR 15-29 5 Kidney failure <15 (or dialysis) 37 Desirable <150 Borderline high 150-199 High 200-499 Very High >500 38 Desirable <200 Borderline high 200-239 High >239 39 Low <40 Desirable: 40-60 High: >60 40 Desirable: <100 mg/dL Near Optimal: 100-129 mg/dL Borderline High: 130-159 mg/dL High: 160-189 mg/dL Very High: >189 mg/dL 41 FASTING 42 FASTING 43 Because ethnic data is not always readily available, this report includes an eGFR for both -Americans and non- Americans. The National Kidney Disease Education Program (NKDEP) does not endorse the use of the MDRD equation for patients that are not between the ages of 18 and 70, are , have extremes of body size, muscle mass, or nutritional status, or are non- or non-. According to the National Kidney Foundation, irrespective of diagnosis, the stage of the disease is based on the level of kidney function: Stage Description GFR(mL/min/1.73 m(2)) 1 Kidney damage with normal or decreased GFR 90 2 Kidney damage with mild decrease in GFR 60-89 3 Moderate decrease in GFR 30-59 4 Severe decrease in GFR 15-29 5 Kidney failure <15 (or dialysis) 44 Desirable <150 Borderline high 150-199 High 200-499 Very High >500 45 Desirable <200 Borderline high 200-239 High >239 46 Low <40 Desirable: 40-60 High: >60 47 Desirable <100 Near Optimal 100-129 Borderline high 130-159 High 160-189 Very High >189 48 Acute inflammation: >10.00 49 RUN DATE: 02/17/14 [facility] LAB LIVE PAGE 1 RUN TIME: [address] [place], [place] [address] Specimen Inquiry Name: MARTY MEAD : [address]: Letty Avelar MD Acct: [id number] Unit: [id number] AGE: 53 Location: WOUND Re02/10/14 SEX: M Status: REG RCR SPEC: [id number] FILIBERTO: 02/10/14-[address] [facility] [address]: Letty Avelar MD REQ: [id number] RECD: 02/10/14-115 STATUS: DWAINE SIMENTAL DR: Jarocho Whyte MD _ SOURCE: WOUND SPDESC:RIGHT LEG ORDERED: Anaerobic Cult, Culture Stain Procedure Result Verified Site Anaerobic Culture Final 02/14/14- 1004 ML Anaerobe Culture No Anaerobes Day 4 Wound/Misc Gram Stain Final 02/10/14- 1435 ML 2+ Epithelial Cells 2+ Polys 2+ Yeast 2+ Fungal Hyphae 1+ Gram Positive Cocci Wound/Misc Culture Final 02/17/14- 1330 ML Organism 1 PSEUDOMONAS AERUGINOSA Quantity 1+ Organism 2 USMAN PARAPSILOSIS Quantity 2+ Organism 3 USMAN ALBICANS Quantity 1+ Organism 4 ENTEROCOCCUS FAECALIS Quantity 1+ CONTINUED ON NEXT PAGE * ML=Testing performed at Main Lab DEPARTMENT OF PATHOLOGY, [facility] [address], [place] [address] Fidencio Smith M.D. Director [facility] # [id number] RUN DATE: 02/17/14 [facility] LAB LIVE PAGE 2 RUN TIME: 1050 [facility] [address] [place], [place] [address] Specimen Inquiry Patient: MARTY MEAD [id number] (Continued) Specimen: [id number] Collected: 02/10/14-1034 Received: 02/10/14-1150 (Continued) Procedure Result Verified Site Wound/Misc Culture Final (continued) 02/17/14- 4265 1. PSEUDOMONAS AERUGINOSA M.I.C. RX --------- ------ Ampicillin >=32 R Cefazolin >=64 R Cefepime 2 S Ceftriaxone R Ciprofloxacin <=0.25 S Gentamicin <=1 S Levofloxacin 1 S Meropenem <=0.25 S Nitrofurantoin >=512 R Tetracycline >=16 R Pipercillin/Tazobactam 8 S Trimethoprim/Sulfamethoxazole 80 R Amoxicillin/Clavulanic Acid >=32 R 4. ENTEROCOCCUS FAECALIS M.I.C. RX --------- ------ Ampicillin <=2 S Penicillin 4 S Ciprofloxacin <=0.5 S Erythromycin >=8 R Gentamicin High Level R Levofloxacin 0.5 S Linezolid 2 S Nitrofurantoin <=16 S * Quinupristin/Dalfopristin 4 R * Streptomycin High Level S Tetracycline >=16 R Tigecycline <=0.12 S Vancomycin 1 S Imipenem-Deduced S * Ampicillin/Sulbactam-Deduced S CONTINUED ON NEXT PAGE * ML=Testing performed at Main Lab DEPARTMENT OF PATHOLOGY, [facility] [place] [address] Fidencio Smith M.D. Director [facility] # [id number] RUN DATE: 02/17/14 [facility] LAB LIVE PAGE 3 RUN TIME: 1330 [facility] [place], [place] [address] Specimen Inquiry Patient: MARTY MEAD [id number] (Continued) Specimen: [id number] Collected: 02/10/14-1034 Received: 02/10/14-1150 (Continued) Procedure Result Verified Site Wound/Misc Culture Final (continued) * These antibiotics are not available in the [facility] Formulary Contact the Microbiology Department for any additional antibiotic reporting. Contact the Microbiology Department for any additional antibiotic reporting. END OF REPORT * ML=Testing performed at Main Lab DEPARTMENT OF PATHOLOGY, [facility] [address], [place] [address] Fidencio Smith M.D. Director [facility] # [id number] RUN DATE: 02/14/14 [facility] LAB LIVE PAGE 1 RUN TIME: 1004 [facility] [place], [place] [address] Specimen Inquiry Name: MARTY MEAD : [address]: Letty Avelar MD Acct: [id number] Unit: [id number] AGE: 53 Location: WOUND Re02/10/14 SEX: M Status: REG RCR SPEC: [id number] FILIBERTO: 02/10/14-[address] [facility] [address]: Letty Avelar MD REQ: [id number] RECD: 02/10/14 STATUS: RES [facility] DR: Jarocho Whyte MD _ SOURCE: WOUND SPDESC:RIGHT LEG ORDERED: Anaerobic Cult, Culture Stain Procedure Result Verified Site Anaerobic Culture Final 02/14/14- 1004 ML Anaerobe Culture No Anaerobes Day 4 Wound/Misc Gram Stain Final 02/10/14- 1435 ML 2+ Epithelial Cells 2+ Polys 2+ Yeast 2+ Fungal Hyphae 1+ Gram Positive Cocci Wound/Misc Culture Preliminary 02/14/14- 1004 ML Organism 1 GRAM NEGATIVE BACILLI Quantity 1+ Organism 2 YEAST Quantity 2+ END OF REPORT * ML=Testing performed at Main Lab DEPARTMENT OF PATHOLOGY, [address] [place] [address] Fidencio Smith M.D. Director [facility] # [id number] 51 >100 to <200 pg/mL: likely compensated congestive heart failure (CHF) 200 to 400 pg/mL: likely moderate CHF >400 pg/mL: likely moderate to severe CHF [place] [facility] 52 Because ethnic data is not always readily available, this report includes an eGFR for both -Americans and non- Americans. The National Kidney Disease Education Program (NKDEP) does not endorse the use of the MDRD equation for patients that are not between the ages of 18 and 70, are , have extremes of body size, muscle mass, or nutritional status, or are non- or non-. According to the National Kidney Foundation, irrespective of diagnosis, the stage of the disease is based on the level of kidney function: Stage Description GFR(mL/min/1.73 m(2)) 1 Kidney damage with normal or decreased GFR 90 2 Kidney damage with mild decrease in GFR 60-89 3 Moderate decrease in GFR 30-59 4 Severe decrease in GFR 15-29 5 Kidney failure <15 (or dialysis) 53 Because ethnic data is not always readily available, this report includes an eGFR for both -Americans and non- Americans. The National Kidney Disease Education Program (NKDEP) does not endorse the use of the MDRD equation for patients that are not between the ages of 18 and 70, are , have extremes of body size, muscle mass, or nutritional status, or are non- or non-. According to the National Kidney Foundation, irrespective of diagnosis, the stage of the disease is based on the level of kidney function: Stage Description GFR(mL/min/1.73 m(2)) 1 Kidney damage with normal or decreased GFR 90 2 Kidney damage with mild decrease in GFR 60-89 3 Moderate decrease in GFR 30-59 4 Severe decrease in GFR 15-29 5 Kidney failure <15 (or dialysis) 54 Because ethnic data is not always readily available, this report includes an eGFR for both -Americans and non- Americans. The National Kidney Disease Education Program (NKDEP) does not endorse the use of the MDRD equation for patients that are not between the ages of 18 and 70, are , have extremes of body size, muscle mass, or nutritional status, or are non- or non-. According to the National Kidney Foundation, irrespective of diagnosis, the stage of the disease is based on the level of kidney function: Stage Description GFR(mL/min/1.73 m(2)) 1 Kidney damage with normal or decreased GFR 90 2 Kidney damage with mild decrease in GFR 60-89 3 Moderate decrease in GFR 30-59 4 Severe decrease in GFR 15-29 5 Kidney failure <15 (or dialysis) 55 HDL Interpretation: Undesirable: High Risk: Less than 40 mg/dL Desirable: Low Risk: Greater than 60 mg/dL 56 LDL Interpretation: Low Risk Optimal Level: LDL Less than 100 mg/dL Near or Above Optimal: LDL 100-129 mg/dL Borderline High Risk: LDL 130-159 mg/dL High Risk: LDL 160-189 mg/dL Very High Risk: LDL Greater than 189 mg/dL 57 Because ethnic data is not always readily available, this report includes an eGFR for both -Americans and non- Americans. The National Kidney Disease Education Program (NKDEP) does not endorse the use of the MDRD equation for patients that are not between the ages of 18 and 70, are , have extremes of body size, muscle mass, or nutritional status, or are non- or non-. According to the National Kidney Foundation, irrespective of diagnosis, the stage of the disease is based on the level of kidney function: Stage Description GFR(mL/min/1.73 m(2)) 1 Kidney damage with normal or decreased GFR 90 2 Kidney damage with mild decrease in GFR 60-89 3 Moderate decrease in GFR 30-59 4 Severe decrease in GFR 15-29 5 Kidney failure <15 (or dialysis) 58 Because ethnic data is not always readily available, this report includes an eGFR for both -Americans and non- Americans. The National Kidney Disease Education Program (NKDEP) does not endorse the use of the MDRD equation for patients that are not between the ages of 18 and 70, are , have extremes of body size, muscle mass, or nutritional status, or are non- or non-. According to the National Kidney Foundation, irrespective of diagnosis, the stage of the disease is based on the level of kidney function: Stage Description GFR(mL/min/1.73 m(2)) 1 Kidney damage with normal or decreased GFR 90 2 Kidney damage with mild decrease in GFR 60-89 3 Moderate decrease in GFR 30-59 4 Severe decrease in GFR 15-29 5 Kidney failure <15 (or dialysis) 59 HDL Interpretation: Undesirable: High Risk: Less than 40 MG/DL Desirable: Low Risk: Greater than 60 MG/DL 60 LDL Interpretation: Low Risk Optimal Level: LDL Less than 100 MG/DL Near or Above Optimal: LDL 100-129 MG/DL Borderline High Risk: LDL 130-159 MG/DL High Risk: LDL 160-189 MG/DL Very High Risk: LDL Greater than 189 MG/DL 61 A metabolite of Naproxen, O-desmethylnaproxen, has been shown to interfere with the Jendrassik-Niecy method for measuring total bilirubin. Samples from patients who have taken Naproxen have shown spurious elevation in total bilirubin levels. 62 Because ethnic data is not always readily available, this report includes an eGFR for both -Americans and non- Americans. The National Kidney Disease Education Program (NKDEP) does not endorse the use of the MDRD equation for patients that are not between the ages of 18 and 70, are , have extremes of body size, muscle mass, or nutritional status, or are non- or non-. According to the National Kidney Foundation, irrespective of diagnosis, the stage of the disease is based on the level of kidney function: Stage Description GFR(mL/min/1.73 m(2)) 1 Kidney damage with normal or decreased GFR 90 2 Kidney damage with mild decrease in GFR 60-89 3 Moderate decrease in GFR 30-59 4 Severe decrease in GFR 15-29 5 Kidney failure <15 (or dialysis) 63 Desirable: Less than 200 MG/DL Borderline-High Risk: 200-239 MG/DL High-Risk: 240 MG/DL and over 64 HDL Interpretation: Undesirable: High Risk: Less than 40 MG/DL Desirable: Low Risk: Greater than 60 MG/DL 65 Therapeutic target for the treatment of diabetes Mellitus patients is <7% HBA1C, and in selective patients <6.0%.Please refer to [place] [employer] Diabetic care guidelines for further information. 66 CHOLESTEROL INTERPRETATION: Desirable: Less than 200 MG/DL Borderline-High Risk: 200-239 MG/DL High-Risk: 240 MG/DL and over 67 HDL INTERPRETATION: Undesirable: High Risk: Less than 40 MG/DL Desirable: Low Risk: Greater than 60 MG/DL 68 LDL INTERPRETATION: Low Risk Optimal Level: LDL Less than 100 MG/DL Near or Above Optimal: LDL 100-129 MG/DL Borderline High Risk: LDL 130-159 MG/DL High Risk: LDL 160-189 MG/DL Very High Risk: LDL Greater than 189 MG/DL 69 Anion gap measurement may be of limited value in the presence of any alkalosis, especially in a combined acid base disorder. . 70 A metabolite of Naproxen, O-desmethylnaproxen, has been shown to interfere with the Jendrassik-Niecy method for measuring total bilirubin. Samples from patients who have taken Naproxen have shown spurious elevation in total bilirubin levels. 71 Because ethnic data is not always readily available, this report includes an eGFR for both -Americans and non- Americans. The National Kidney Disease Education Program (NKDEP) does not endorse the use of the MDRD equation for patients that are not between the ages of 18 and 70, are , have extremes of body size, muscle mass, or nutritional status, or are non- or non-. According to the National Kidney Foundation, irrespective of diagnosis, the stage of the disease is based on the level of kidney function: Stage Description GFR(mL/min/1.73 m(2)) 1 Kidney damage with normal or decreased GFR 90 2 Kidney damage with mild decrease in GFR 60-89 3 Moderate decrease in GFR 30-59 4 Severe decrease in GFR 15-29 5 Kidney failure <15 (or dialysis) 72 CHOLESTEROL INTERPRETATION: Desirable: Less than 200 MG/DL Borderline-High Risk: 200-239 MG/DL High-Risk: 240 MG/DL and over 73 HDL INTERPRETATION: Undesirable: High Risk: Less than 40 MG/DL Desirable: Low Risk: Greater than 60 MG/DL 74 LDL INTERPRETATION: Low Risk Optimal Level: LDL Less than 100 MG/DL Near or Above Optimal: LDL 100-129 MG/DL Borderline High Risk: LDL 130-159 MG/DL High Risk: LDL 160-189 MG/DL Very High Risk: LDL Greater than 189 MG/DL 75 Anion gap measurement may be of limited value in the presence of any alkalosis, especially in a combined acid base disorder. . 76 A metabolite of Naproxen, O-desmethylnaproxen, has been shown to interfere with the Jendrassik-Niecy method for measuring total bilirubin. Samples from patients who have taken Naproxen have shown spurious elevation in total bilirubin levels. 77 Because ethnic data is not always readily available, this report includes an eGFR for both -Americans and non- Americans. The National Kidney Disease Education Program (NKDEP) does not endorse the use of the MDRD equation for patients that are not between the ages of 18 and 70, are , have extremes of body size, muscle mass, or nutritional status, or are non- or non-. According to the National Kidney Foundation, irrespective of diagnosis, the stage of the disease is based on the level of kidney function: Stage Description GFR(mL/min/1.73 m(2)) 1 Kidney damage with normal or decreased GFR 90 2 Kidney damage with mild decrease in GFR 60-89 3 Moderate decrease in GFR 30-59 4 Severe decrease in GFR 15-29 5 Kidney failure <15 (or dialysis) 78 Anion gap measurement may be of limited value in the presence of any alkalosis, especially in a combined acid base disorder. . 79 Note change in reference range as of 02/28/08. The change was based on recommendations from the [place] [employer]. 80 Please note change in reference range effective 07 . 81 A metabolite of Naproxen, O-desmethylnaproxen, has been shown to interfere with the Jendrassik-Niecy method for measuring total bilirubin. Samples from patients who have taken Naproxen have shown spurious elevation in total bilirubin levels. 82 Because ethnic data is not always readily available, this report includes an eGFR for both -Americans and non- Americans. The National Kidney Disease Education Program (NKDEP) does not endorse the use of the MDRD equation for patients that are not between the ages of 18 and 70, are , have extremes of body size, muscle mass, or nutritional status, or are non- or non-. According to the National Kidney Foundation, irrespective of diagnosis, the stage of the disease is based on the level of kidney function: Stage Description GFR(mL/min/1.73 m(2)) 1 Kidney damage with normal or decreased GFR 90 2 Kidney damage with mild decrease in GFR 60-89 3 Moderate decrease in GFR 30-59 4 Severe decrease in GFR 15-29 5 Kidney failure <15 (or dialysis) 83 CHOLESTEROL INTERPRETATION: Desirable: Less than 200 MG/DL Borderline-High Risk: 200-239 MG/DL High-Risk: 240 MG/DL and over 84 HDL INTERPRETATION: Undesirable: High Risk: Less than 40 MG/DL Desirable: Low Risk: Greater than 60 MG/DL 85 LDL INTERPRETATION: Low Risk Optimal Level: LDL Less than 100 MG/DL Near or Above Optimal: LDL 100-129 MG/DL Borderline High Risk: LDL 130-159 MG/DL High Risk: LDL 160-189 MG/DL Very High Risk: LDL Greater than 189 MG/DL 86 CHOLESTEROL INTERPRETATION: Desirable: Less than 200 MG/DL Borderline-High Risk: 200-239 MG/DL High-Risk: 240 MG/DL and over 87 HDL INTERPRETATION: Undesirable: High Risk: Less than 40 MG/DL Desirable: Low Risk: Greater than 60 MG/DL 88 LDL INTERPRETATION: Low Risk Optimal Level: LDL Less than 100 MG/DL Near or Above Optimal: LDL 100-129 MG/DL Borderline High Risk: LDL 130-159 MG/DL High Risk: LDL 160-189 MG/DL Very High Risk: LDL Greater than 189 MG/DL 89 Anion gap measurement may be of limited value in the presence of any alkalosis, especially in a combined acid base disorder. . 90 Note change in reference range as of 02/28/08. The change was based on recommendations from the [place] [employer]. 91 Please note change in reference range effective 08 . 92 Classification: Desirable . 93 Classification: Low . 94 CALCULATED LDL APPROXIMATES THE VALUE OF A DIRECT LDL MEASUREMENT. Classification: Near or above optimal . 95 Anion gap measurement may be of limited value in the presence of any alkalosis, especially in a combined acid base disorder. . 96 Classification: Desirable . 97 Classification: Low . 98 CALCULATED LDL APPROXIMATES THE VALUE OF A DIRECT LDL MEASUREMENT. Classification: Near or above optimal . 99 Anion gap measurement may be of limited value in the presence of any alkalosis, especially in a combined acid base disorder. . Procedures Date CPT Code Description Status 02/08/2018 19326 EKG Tracing & Interpretation Completed 01/18/2018 04705 EKG Tracing & Interpretation Completed 12/28/2017 29398 Holter Monitor Review (24 hr)dr review & interp only Completed 12/22/2017 78161 EKG Tracing & Interpretation Completed 11/28/2017 64858 ECHO Transthoracic, Real-Time 2D With Doppler And Color Completed Flow 11/28/2017 35986 ECHO Transthoracic, Real-Time 2D With Doppler And Color Completed Flow 11/20/2017 90769 Holter Monitor Review (24 hr)dr review & interp only Completed 11/17/2017 00974 ECG Monitor/Recording W/Visual Superimposition Scanning Completed 05/16/2017 88955 ECHO Transthoracic, Real-Time 2D With Doppler And Color Completed Flow 05/16/2017 04232 ECHO Transthoracic, Real-Time 2D With Doppler And Color Completed Flow 04/28/2017 10206 Stress Test Supervsn W/Out I/R Completed 04/28/2017 92111 Treadmill Interp/Report Only Completed 04/25/2017 41494 Holter Monitor Review (24 hr) review & interp only Completed 04/24/2017 37662 ECG Monitor/Recording W/Visual Superimposition Scanning Completed 04/04/2017 04131 EKG Tracing & Interpretation Completed 12/25/2016 43895 EKG, Interpretation Only Completed 12/15/2016 61294 EKG Tracing & Interpretation Completed 10/21/2016 74587 Biopsy Skin Lesion Single Completed 08/25/2016 63686 EKG Tracing & Interpretation Completed 02/10/2016 11513 EKG Tracing & Interpretation Completed 10/08/2015 Colonoscopy Completed 09/29/2014 81606 EKG Tracing & Interpretation Completed 01/13/2014 16902 EKG Tracing & Interpretation Completed 09/03/2013 07927 EKG Tracing & Interpretation Completed 07/30/2013 28683 EKG Tracing & Interpretation Completed 06/25/2013 93650 ECHO Transthoracic, Real-Time 2D With Doppler And Color Completed Flow 05/15/2013 16733 EKG Tracing & Interpretation Completed 04/30/2012 55987 Holter Monitoring 24 HR New Completed 04/06/2012 50414 EKG Tracing & Interpretation Completed 06/15/2011 41420 EKG Tracing & Interpretation Completed 07/28/2009 81184 Treadmill Interp/Report Only Completed 07/28/2009 34163 Stress Test Supervsn W/Out I/R Completed 06/15/2009 37396 ECHO Stress Test Incl Perf Contiuous ekg Monitoring Completed W/Phys Superv 05/04/2009 80117 EKG Tracing & Interpretation Completed 08/20/2008 32484 Color Doppler Completed 08/20/2008 04416 Pulse Doppler & Continuous Wave Completed 08/20/2008 00628 Echocardiogram Completed 08/20/2008 03796 ECHO Transthoracic, Real-Time 2D With Doppler And Color Completed Flow 07/29/2008 62725 EKG Tracing & Interpretation Completed 07/29/2008 42477 EKG Tracing & Interpretation Completed 01/02/2008 32116 EKG Tracing & Interpretation Completed 01/19/2007 24654 EKG Tracing & Interpretation Completed 01/19/2007 26715 EKG Tracing & Interpretation Completed 06/26/2006 16980 EKG Tracing & Interpretation Completed 06/26/2006 68749 EKG Tracing & Interpretation Completed 04/12/2006 01675 Holter Monitor Interpretation Completed 04/05/2006 30976 EKG Tracing & Interpretation Completed 11/24/2005 85461 EKG Tracing & Interpretation Completed 06/13/2005 66785 EKG Tracing & Interpretation Completed 05/16/2005 28102 Selective Coronary Angiography Completed 05/16/2005 02955 S/I/R Inj Proc Vent &/Or Atrial Completed 05/16/2005 31529 Coronary Angiography Completed 05/16/2005 04086 Inj Proc LFT Vent/LFT Atrl Angio Completed 05/16/2005 60241 Left Heart Catheterization Completed 05/10/2005 04514 ECHO/Stress Completed 05/10/2005 22910 Stress Test Completed 05/10/2005 52458 IV Infusion For DX/Upt To 1 HR. Completed 05/10/2005 25587 Intro. Needle Or Intracath.,Vein Completed Encounters Type Date Location Provider CPT E/M Dx Office Visit 02/26/2018 [place] [address] G47.33 10:00a [facility] R53.83 E66.01 Office Visit 02/08/2018 10:40a [facility] Rick Ramesh, 67596 I49.3 Rachna Wong R94.31 I25.10 E78.00 I10 G47.33 E66.9 I44.0 Office Visit 12/22/2017 10:30a [facility] Hannahradha Echeverria, 01284 R94.31 [employer] I10 I49.3 Office Visit 04/04/2017 10:40a [facility] Rick Ramesh M.D. 13097 I10 I49.3 R07.9 R06.00 Office Visit 01/05/2017 2:40p [facility] Antonio 10920 L03.115 Infectious Diseases Judith Whyte L97.819 I89.0 Office Visit 12/25/2016 11:24a [facility], [place] [address] L03.115 Hospitalists I83.009 G47.33 I10 Office Visit 12/15/2016 2:40p [facility] Rick Ramesh, 41757 E78.01 Judith I10 R00.2 R94.31 Office Visit 08/25/2016 10:20a [facility] Rick Ramesh M.D. 67702 E66.9 I10 E78.00 Office Visit 03/02/2016 11:30a [facility] NILESH Campos 27216ZXX E66.9 I10 E78.0 Office Visit 02/10/2016 11:00a [facility] Rick Ramesh M.D. 07530 I10 E78.0 E66.9 Office Visit 10/09/2014 11:00a [facility] [place] [address] 401.9 Office Visit 09/29/2014 2:40p [facility] Rick Ramesh M.D. 72247 272.0 278.00 401.9 Office Visit 03/06/2014 3:40p [facility] Aleksander GarciaFrida Kayden, 58547 682.6 Infectious Diseases M.D. Office Visit 02/03/2014 3:20p [facility] Aleksander Whyte, 82376 707.13 Infectious Diseases M.D. Office Visit 01/13/2014 2:20p [facility] Rick Ramesh, 59178 401.1 [employer] M.D. 272.0 782.3 278.01 Office Visit 09/03/2013 2:20p [facility] Rick Ramesh M.D. 73025 401.0 424.0 414.01 785.1 782.3 Office Visit 07/30/2013 1:40p [facility] Rick Ramesh M.D. 76932 401.1 785.1 278.01 424.0 Office Visit 07/17/2013 10:00a [facility] Nurse Visit 46188 401.1 Office Visit 05/15/2013 10:00a [facility] Rick Ramesh 15594 278.01 M.D. 785.1 414.01 401.1 Office Visit 04/06/2012 1:00p [facility] Rick Ramesh 57767 278.01 M.D. 414.01 401.1 272.0 Office Visit 06/15/2011 9:20a [facility] Rick Ramesh 63125 414.01 M.D. 278.01 401.1 272.0 Office Visit 05/04/2009 10:10a [facility] Rick Ramesh 48624 278.01 M.D. 401.1 414.01 424.0 786.59 Office Visit 07/29/2008 11:00a [facility] Rick Ramesh M.D. 91153 401.1 414.01 278.01 272.0 785.2 Office Visit 01/02/2008 2:40p [facility] Rick Ramesh M.D. 44068 401.1 414.01 272.0 Office Visit 01/19/2007 10:20a [facility] Rick Ramesh M.D. 16771 272.0 414.01 401.0 Office Visit 06/26/2006 2:40p [facility] Rcik Ramesh, 81795 414.01 M.D. 272.0 Office Visit 06/08/2006 9:20a [facility] Rick Ramesh 61298 414.01 M.D. 401.0 Office Visit 05/31/2006 9:40a [facility] Rick Ramesh, 50339 414.01 M.D. 401.1 272.0 Office Visit 05/18/2006 8:00a [facility] Rick Ramesh 86298 401.1 M.D. Office Visit 04/05/2006 9:40a [facility] Rick Ramesh 50576 401.0 M.D. Office Visit 11/24/2005 9:40a [facility] Rick Ramesh 28382 414.01 M.D. 401.1 272.0 278.01 Office Visit 07/14/2005 2:00p [facility] Rick Ramesh, 75990 786.50 M.D. 272.0 401.0 Office Visit 06/13/2005 10:45a [facility] Rick Ramesh M.D. 72105 401.0 278.01 Office Visit 05/10/2005 3:20p [facility] Rick Ramesh M.D. 46404 785.1 414.01 427.69 Plan of Care Future Appointment(s):04/11/2018 8:30 am - Rick Ramesh M.D. at [facility]04/11/2018 8:00 am - [facility] Schedule at [facility]2017 - Melissa Ace [id number] Obstructive sleep apnea (adult) (pediatric)New Orders:Sleep Study Cpap RetitrationFollow up:6 [id number] Other [id number] Morbid (severe) obesity due to excess calories
== END 2018-03-01 05:55 | disposition left against medical advice (07) ==
LOC: ED 03:53
DX: S89.91XA Unspecified injury of right lower leg, initial encounter (principal); X58.XXXA Exposure to other specified factors, initial encounter; Y93.9 Activity, unspecified; Y92.9 Unspecified place or not applicable; Z53.21 Procedure and treatment not carried out due to patient leaving prior to being seen by health care provider

== ENCOUNTER 2018-03-01 08:11 | Emergency (ER) | payer BC ==
[2018-03-01 08:39] VITALS: BP 155/98
--- NOTE | 2018-03-01 09:28 | UC ---
HPI Wound/Suture Re-check - HPI Summary HPI Summary: IN ROOM NOTE: A 57 y/o M presents to [facility] with c/o acute on chronic, painful RLE weeping wound onset a few days ago. Pt has chronic ulcers due to a circulation issue and is requesting a culture of the wound. Pt states feeling healthy otherwise, denies respiratory sx. He took Percocet PT SKILLED. He notes tooth pain as well, but is scheduled to have his tooth pulled. At bedside, pt is wearing an roro bandage on his RLE, he wears compression socks otherwise. He sees Dr. Lagunas. 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 MD NOTE: RLE wound, back for recheck. He is back after wound began to become tender. Vital signs are stable, temp is 98.1 F. Pain is 8/10. Manual BP is 155/98. Visit history shows chronic ulcerations of R lower leg. Pt is here requesting wound culture of chronic, weeping RLE ulcer. Pt has multiple visits for similar complaint over past four years. Most recently, he was seen at [facility] in January, the wound was cultured and found NOT sensitive to Augmentin, but sensitive to Levoquin. NURSE'S NOTE: right lower leg wound back for recheck. had started to heal after antibiotics but has since worsened. Tender, red, swollen fluid drainage. - History Of Current Complaint Chief Complaint: UCWounds Stated Complaint: WOUND ON ANKLE Time Seen by Provider: 03/01/18 09:24 Hx Obtained From: Patient Onset/Duration: Lasting Days, Still Present Severity: Severe Pain Intensity: 8 Pain Scale Used: 0-10 Numeric - Allergies/Home Medications Allergies/Adverse Reactions: Allergies Allergy/AdvReac Type Severity Reaction Status Date / Time diltiazem [From Cardizem] Allergy Unknown Unknown Verified 01/08/18 21:33 Reaction Details Sulfa (Sulfonamide Allergy GI Upset Verified 01/08/18 21:33 Antibiotics) PMH/Surg Hx/FS Hx/Imm Hx Previously Healthy: No Other Endocrine History: neg: DM Cardiovascular History: Hypertension Other Respiratory History: neg: COPD GI/ History: Gastroesophageal Reflux - Surgical History Surgical History: Yes Surgery Procedure, Year, and Place: R ankle fracture repair, VASCULAR LASER SURGERY - Family History Known Family History: Positive: Cardiac Disease, Hypertension Family History: vascular issues - mother - Social History Occupation: Employed Full-time Lives: With Family Alcohol Use: Occasionally Alcohol Amount: SOCIAL Substance Use Type: None Smoking Status (MU): Never Smoked Tobacco Have You Smoked in the Last Year: No - Immunization History Most Recent Influenza Vaccination: never Most Recent Pneumonia Vaccination: never Review of Systems Skin: Other - weeping ulcerated wound on RLE Respiratory: Negative - respiratory sx Gastrointestinal: Negative - N/V/D All Other Systems Reviewed And Are Negative: Yes - Comments Additional Review of Systems Comments: POSITIVE: RLE PAIN AND WOUND, TOOTHACHE NEGATIVE: RESPIRATORY SX, N/V/D Physical Exam - Summary Physical Exam Summary: Appearance: The patient is well-appearing, is in no pain distress, and is well- nourished. Eyes: Conjunctiva are clear. ENT: The hearing is grossly normal, the pharynx is normal, and the TMs are normal. There is no muffled or hoarse voice. Neck: The neck is supple and there is no lymphadenopathy. Respiratory: The chest is nontender. The lungs are clear, there are normal breath sounds, and there is no respiratory distress. Cardiovascular: Heart is regular rate and rhythm. There is no murmur. Abdomen: The abdomen is soft and nontender. There is no organomegaly. Bowel sounds: present Musculoskeletal: Strength is intact. The patient moves all extremities. LEFT LE: MILD EDEMA OF EVIDENCE OF PERIPHERAL VASCULAR DZ INCLUDING DISCOLORATION; NO OPEN ULCERATION RIGHT LE: SHOWS SWELLING AND EXTENSIVE SKIN ALTERATION SECONDARY TO PERIPHERAL VASCULAR DZ. THERE IS A 1 INCH OPEN ULCERATION ON THE LATERAL ASPECT OF ANKLE ABOVE THE LATERAL MALLEOLUS. THE AREA AROUND ULCERATION IS INJECTED, BUT THERE IS NO EVIDENCE OF CELLULITIS OR ASCENDING LYMPHANGITIS. AREA DOES NOT APPEAR TENDER OR ACUTELY INFLAMED. AREA WAS CULTURED AND REDRESSED. Neurological: The patient is alert. Psychological: The patient displays age appropriate behavior Skin: Negative for rashes. Triage Information Reviewed: Yes Vital Signs: Initial Vital Signs Temp 98.1 F 03/01/18 08:20 Pulse 67 03/01/18 08:20 Resp 20 03/01/18 08:20 BP 155/98 03/01/18 08:20 Pulse Ox 96 03/01/18 08:20 Vital Signs Reviewed: Yes Course/Dx - Course Course Of Treatment: Medications have been included in the original chart and reviewed. The area was cultured and redressed. The culture will help decide on future ABX treatment, as needed. Discussed with pt: will see result of wound culture and decide on ABX at that time. Elevated BP but has current hypertension diagnosis and treatment. This should be rechecked a few times in the next month. - Differential Dx - Laceration/Wound Differential Diagnoses: Cellulitis - ACUTE, Other - peripheral vasc dz with chronic ulceration Provider Diagnoses: 1. Chronic peripheral vascular dx with ulceration, RLE; cultured. 2. Blood pressure in poor control. Discharge - Sign-Out/Discharge Documenting (check all that apply): Patient Departure - DC All imaging exams completed and their final reports reviewed: No Studies - Discharge Plan Condition: Stable Disposition: HOME Patient Education Materials: Peripheral Vascular Disease (ED) Referrals: Jarocho Gutiérrez MD [Primary Care Provider] - Additional Instructions: PLEASE SEEK CARE AT THE EMERGENCY DEPARTMENT IF SYMPTOMS WORSEN OR IF NEW SYMPTOMS DEVELOP. FOLLOW UP WITH YOUR PRIMARY CARE PHYSICIAN. Your blood pressure reading today was 155/98, indicating HYPERTENSION. Follow- up with your primary care provider within 4 weeks for blood pressure readings and further evaluation. WE DISCUSSED: 1. We have a wound culture that well dictate what antibiotic to take. Results should be available in 2 days. 2. Elevate and continue to use gentamicin ointment, as you are doing. Call with any questions or concerns. Your diagnosis is peripheral vascular disease with ulceration. There does not appear to be a new cellulitis at this time. - Billing Disposition and Condition Condition: STABLE Disposition: Home - Attestation Statements Document Initiated by Caridad: Yes Documenting Scribe: Priti Alvares Provider For Whom Caridad is Documenting (Include Credential): Calin Hirsch MD Scribe Attestation: I, Priti Alvares, scribed for Calin Hirsch MD on 03/01/18 at 1005. Scribe Documentation Reviewed: Yes Provider Attestation: The documentation as recorded by the Priti canela accurately reflects the service I personally performed and the decisions made by , Calin Hirsch MD
--- NOTE | 2018-03-02 09:20 | UC ---
- Progress Note Progress Note: Pt with chronic wound RLE MRSA neg S Aureus neg awaiting sensitivity for abx per note by provider Louise 03/02/2018 Discharge - Sign-Out/Discharge Documenting (check all that apply): Post-Discharge Follow Up All imaging exams completed and their final reports reviewed: No Studies - Discharge Plan Condition: Stable Disposition: HOME Patient Education Materials: Peripheral Vascular Disease (ED) Referrals: Jarocho Gutiérrez MD [Primary Care Provider] - Additional Instructions: PLEASE SEEK CARE AT THE EMERGENCY DEPARTMENT IF SYMPTOMS WORSEN OR IF NEW SYMPTOMS DEVELOP. FOLLOW UP WITH YOUR PRIMARY CARE PHYSICIAN. Your blood pressure reading today was 155/98, indicating HYPERTENSION. Follow- up with your primary care provider within 4 weeks for blood pressure readings and further evaluation. WE DISCUSSED: 1. We have a wound culture that well dictate what antibiotic to take. Results should be available in 2 days. 2. Elevate and continue to use gentamicin ointment, as you are doing. Call with any questions or concerns. Your diagnosis is peripheral vascular disease with ulceration. There does not appear to be a new cellulitis at this time. - Billing Disposition and Condition Condition: STABLE Disposition: Home
--- NOTE | 2018-03-02 17:05 | UC ---
- Progress Note Progress Note: Please call patient ----check on wound--please report to provider (me) if wound if worsening or has not improved---Sweta Lamar Discharge - Sign-Out/Discharge Documenting (check all that apply): Post-Discharge Follow Up All imaging exams completed and their final reports reviewed: No Studies - Discharge Plan Condition: Stable Disposition: HOME Patient Education Materials: Peripheral Vascular Disease (ED) Referrals: Jarocho Gutiérrez MD [Primary Care Provider] - Additional Instructions: PLEASE SEEK CARE AT THE EMERGENCY DEPARTMENT IF SYMPTOMS WORSEN OR IF NEW SYMPTOMS DEVELOP. FOLLOW UP WITH YOUR PRIMARY CARE PHYSICIAN. Your blood pressure reading today was 155/98, indicating HYPERTENSION. Follow- up with your primary care provider within 4 weeks for blood pressure readings and further evaluation. WE DISCUSSED: 1. We have a wound culture that well dictate what antibiotic to take. Results should be available in 2 days. 2. Elevate and continue to use gentamicin ointment, as you are doing. Call with any questions or concerns. Your diagnosis is peripheral vascular disease with ulceration. There does not appear to be a new cellulitis at this time. - Billing Disposition and Condition Condition: STABLE Disposition: Home
--- NOTE | 2018-03-03 16:24 | UC ---
- Progress Note Progress Note: call patient culture reports have returned ---will start Augmentin 875 mg po bid for 10 days---assure he has follow up care with pcp this week Discharge - Sign-Out/Discharge Documenting (check all that apply): Post-Discharge Follow Up All imaging exams completed and their final reports reviewed: No Studies - Discharge Plan Condition: Stable Disposition: HOME Patient Education Materials: Peripheral Vascular Disease (ED) Referrals: Jarocho Gutiérrez MD [Primary Care Provider] - Additional Instructions: PLEASE SEEK CARE AT THE EMERGENCY DEPARTMENT IF SYMPTOMS WORSEN OR IF NEW SYMPTOMS DEVELOP. FOLLOW UP WITH YOUR PRIMARY CARE PHYSICIAN. Your blood pressure reading today was 155/98, indicating HYPERTENSION. Follow- up with your primary care provider within 4 weeks for blood pressure readings and further evaluation. WE DISCUSSED: 1. We have a wound culture that well dictate what antibiotic to take. Results should be available in 2 days. 2. Elevate and continue to use gentamicin ointment, as you are doing. Call with any questions or concerns. Your diagnosis is peripheral vascular disease with ulceration. There does not appear to be a new cellulitis at this time. - Billing Disposition and Condition Condition: STABLE Disposition: Home
== END 2018-03-01 10:17 | disposition home or self-care (01) ==
LOC: UCEAST 08:11
DX: L97.318 Non-pressure chronic ulcer of right ankle with other specified severity (principal); I73.9 Peripheral vascular disease, unspecified; K08.89 Other specified disorders of teeth and supporting structures; I10 Essential (primary) hypertension; Z88.8 Allergy status to other drugs, medicaments and biological substances; Z88.2 Allergy status to sulfonamides
CPT/HCPCS: 87070; 87077; 87186; 87205; 87640; 87641; 99211; G0463

== ENCOUNTER 2018-05-08 10:36 | Emergency (ER) | payer BC ==
[2018-05-08 11:06] VITALS: BP 162/83
--- NOTE | 2018-05-08 11:09 | UC ---
Skin Complaint HPI - HPI Summary HPI Summary: 57 yo male presents with chronic right ankle wound. He tells me that he has had issues with this wound for months that is non-healing. When he starts to have drainage and pain, he "knows it is infected". Over the last 2-3 days has had increased pain and yellow/brown discharge. He is traveling out of the country [place] 5 days and is asking for the wound to be cultured. He has Augmentin at home for when he gets wound infections. Denies fever, chills, SOB, chest pain. - History of Current Complaint Chief Complaint: UCSkin Time Seen by Provider: 05/08/18 11:08 Stated Complaint: SKIN COMPLAINT Hx Obtained From: Patient Onset/Duration: Gradual Onset Onset Severity: Moderate Current Severity: Severe Pain Intensity: 8 Pain Scale Used: 0-10 Numeric - Allergy/Home Medications Allergies/Adverse Reactions: Allergies Allergy/AdvReac Type Severity Reaction Status Date / Time diltiazem [From Cardizem] Allergy Unknown Unknown Verified 05/08/18 10:57 Reaction Details Sulfa (Sulfonamide Allergy GI Upset Verified 05/08/18 10:57 Antibiotics) Review of Systems Constitutional: Negative Skin: Other - Right ankle chronic wound Respiratory: Negative Cardiovascular: Negative Neurovascular: Negative Musculoskeletal: Negative Neurological: Negative Psychological: Negative All Other Systems Reviewed And Are Negative: Yes PMH/Surg Hx/FS Hx/Imm Hx Endocrine History: Dyslipidemia Cardiovascular History: Cardiac Disease, Hypertension GI/ History: Gastroesophageal Reflux - Surgical History Surgical History: Yes Surgery Procedure, Year, and Place: R ankle fracture repair, VASCULAR LASER SURGERY - Family History Known Family History: Positive: Cardiac Disease, Hypertension - Social History Lives: With Family Alcohol Use: None Alcohol Amount: SOCIAL Substance Use Type: None Smoking Status (MU): Never Smoked Tobacco Have You Smoked in the Last Year: No - Immunization History Most Recent Influenza Vaccination: never Most Recent Pneumonia Vaccination: never Physical Exam - Summary Physical Exam Summary: GENERAL: NAD. WDWN. No pain distress. SKIN: Right ankle: 1.5cm linear open wound with 5mm depth and 5mm width. Moderate active yellow/brown purulent drainage. Mild TTP. Mild surrounding erythema and edema. NECK: Supple. Nontender. No lymphadenopathy. CHEST: No accessory muscle use. Breathing comfortably and in no distress. CV: Pulses intact. Cap refill <2seconds MSK: Right ankle: FROM with mild pain. NEURO: Alert. PSYCH: Age appropriate behavior. Triage Information Reviewed: Yes Vital Signs: Initial Vital Signs Temp 98.7 F 05/08/18 10:59 Pulse 57 05/08/18 10:59 Resp 20 05/08/18 10:59 BP 162/83 05/08/18 10:59 Pulse Ox 97 05/08/18 10:59 Vital Signs Reviewed: Yes Course/Dx - Course Course Of Treatment: Chronic wound to right ankle - appears infected. Wound culture was collected and will be sent to lab. Advised him to start his Augmentin BID at home and we will call him with culture results. Wound was dressed today with telfa and kerlix. - Diagnoses Provider Diagnoses: Chronic wound infection right ankle Discharge - Sign-Out/Discharge Documenting (check all that apply): Patient Departure All imaging exams completed and their final reports reviewed: No Studies - Discharge Plan Condition: Stable Disposition: HOME Patient Education Materials: Wound Infection (ED), Chronic Wound Care (ED) Referrals: Jarocho Gutiérrez MD [Primary Care Provider] - Additional Instructions: If you develop a fever, shortness of breath, chest pain, new or worsening symptoms - please call your PCP or go to the ED. Your blood pressure was high at todays visit. Please see your primary provider within 4 weeks for recheck and re-evaluation. 1) Please start taking the Augmentin you have at home. One tablet twice a day for 1 week 2) Please change the dressing on your ankle once a day 3) If you have not heard from us, please call us MONDAY afternoon to ask about your culture results. - Billing Disposition and Condition Condition: STABLE Disposition: Home
--- NOTE | 2018-05-09 15:19 | ED ---
Progress - Progress Note Progress Note: Patient's wound culture comes back as positive for pseudomonas aeruginosa. Patient is on Augmentin. Nursing to call patient and inform him I have put in a prescription for Levaquin that he can take and then follow up with his doctor if he gets worse she should go to the emergency department. Course/Dx - Course Course Of Treatment: Chronic wound to right ankle - appears infected. Wound culture was collected and will be sent to lab. Advised him to start his Augmentin BID at home and we will call him with culture results. Wound was dressed today with telfa and kerlix. Discharge - Sign-Out/Discharge Documenting (check all that apply): Patient Departure All imaging exams completed and their final reports reviewed: No Studies - Discharge Plan Condition: Stable Disposition: HOME Prescriptions: Levofloxacin TAB* [Levaquin TAB*] 750 mg PO DAILY #10 tab Patient Education Materials: Wound Infection (ED), Chronic Wound Care (ED) Referrals: Jarocho Gutiérrez MD [Primary Care Provider] - Additional Instructions: If you develop a fever, shortness of breath, chest pain, new or worsening symptoms - please call your PCP or go to the ED. Your blood pressure was high at todays visit. Please see your primary provider within 4 weeks for recheck and re-evaluation. 1) Please start taking the Augmentin you have at home. One tablet twice a day for 1 week 2) Please change the dressing on your ankle once a day 3) If you have not heard from us, please call us MONDAY afternoon to ask about your culture results. - Billing Disposition and Condition Condition: STABLE Disposition: Home
--- NOTE | 2018-05-10 16:15 | UC ---
- Progress Note Progress Note: please notify patient BECAUSE OF HIS HISTORY OF A SURGICAL REPAIR TO THE RIGHT ANKLE I SUGGEST HE GO TO THE ER FOR EVALUATION OF HIS INFECTION IN CASE HIS CHRONIC INFECTION IS DUE TO OSTEOMYELITIS Discharge - Sign-Out/Discharge Documenting (check all that apply): Post-Discharge Follow Up All imaging exams completed and their final reports reviewed: No Studies - Discharge Plan Condition: Stable Disposition: HOME Prescriptions: Levofloxacin TAB* [Levaquin TAB*] 750 mg PO DAILY #10 tab Patient Education Materials: Wound Infection (ED), Chronic Wound Care (ED) Referrals: Jarocho Gutiérrez MD [Primary Care Provider] - Additional Instructions: If you develop a fever, shortness of breath, chest pain, new or worsening symptoms - please call your PCP or go to the ED. Your blood pressure was high at todays visit. Please see your primary provider within 4 weeks for recheck and re-evaluation. 1) Please start taking the Augmentin you have at home. One tablet twice a day for 1 week 2) Please change the dressing on your ankle once a day 3) If you have not heard from us, please call us MONDAY afternoon to ask about your culture results. - Billing Disposition and Condition Condition: STABLE Disposition: Home
== END 2018-05-08 11:21 | disposition home or self-care (01) ==
LOC: UCEAST 10:36
DX: S90.911A Unspecified superficial injury of right ankle, initial encounter (principal); L08.89 Other specified local infections of the skin and subcutaneous tissue; Z88.2 Allergy status to sulfonamides; Z88.8 Allergy status to other drugs, medicaments and biological substances; X58.XXXA Exposure to other specified factors, initial encounter; Y92.9 Unspecified place or not applicable
CPT/HCPCS: 87070; 87077; 87186; 87205; 99212; G0463

== ENCOUNTER 2018-05-10 18:52 | Emergency (ER) | payer BC ==
[2018-05-10 19:06] VITALS: BP 157/77
--- NOTE | 2018-05-11 08:00 | RAD ---
HISTORY: WOUND, chronic infected wound to right ankle COMPARISONS: November 08, 2017 VIEWS: 4 , Frontal, lateral, and oblique views of the right ankle FINDINGS: BONE DENSITY: Normal. BONES: The patient is status post internal fixation of the distal fibula. There is no hardware failure or osteolysis. There is no appreciable erosion or periosteal reaction. JOINTS: There is osteoarthritis of the tibiotalar and fibulotalar articulations. ALIGNMENT: There is no dislocation. SOFT TISSUES: There is peripheral arterial calcification. OTHER FINDINGS: None. IMPRESSION: 1. OSTEOARTHRITIS. 2. STATUS POST INTERNAL FIXATION OF THE RIGHT ANKLE. 3. PERIPHERAL ARTERIAL DISEASE. 4. NO APPRECIABLE EROSION OR PERIOSTEAL REACTION. PLAIN FILM FINDINGS OF OSTEOMYELITIS ARE RELATIVELY LATE FINDINGS. IF THERE IS PERSISTENT CLINICAL CONCERN FOR OSTEOMYELITIS, RECOMMEND CORRELATION WITH FOLLOWUP IMAGING, THREE-PHASE BONE SCANNING, WHITE BLOOD CELL SCAN, AND/OR MRI OF THE AFFECTED REGION. R1NF
--- NOTE | 2018-05-11 10:19 | ED ---
Progress - Progress Note Progress Note: Patient called to get updated results of sensitivity from recent wound culture which were taken on 05/08 at urgent care. He was started on Levaquin however final results show this is indeterminant. Since he's traveling out of town and he is concerned about his this infection potentially getting worse, he is requesting what antibiotic would definitely treat. Ciprofloxacin appears to most sensitive PO drug on his final results list and so we switched him to this antibiotic. He will stop levaquin and start cipro. States he is traveling out of town for a week but will go to a local emergency department if he develops danger signs or symptoms. He will also follow up with his PCP upon return from his trip. Furthermore, he was triaged in the ED yesterday and an x-ray of his ankle was ordered. He LWBS but reviewed his results which indicate osteoarthritis. Also explained osteomyelitis was not identified on this x-ray however that this is not the best test to assess for osteomyelitis. If he has concern for ostemyelitis, he needs to return to the emergency department for further testing. Patient agrees with plan. He reports his infection seems to be getting better since he started Augmentin and Levaquin couple of days ago. Discharge - Sign-Out/Discharge Documenting (check all that apply): Post-Discharge Follow Up - Discharge Plan Disposition: LEFT WITHOUT BEING SEEN Prescriptions: Ciprofloxacin TAB* [Cipro 500 MG TAB*] 500 mg PO BID #20 tab Referrals: Jarocho Gutiérrez MD [Primary Care Provider] - - Billing Disposition and Condition Disposition: Left Without Being Seen
== END 2018-05-10 21:32 | disposition left against medical advice (07) ==
LOC: ED 18:52
DX: M25.571 Pain in right ankle and joints of right foot (principal); Z53.21 Procedure and treatment not carried out due to patient leaving prior to being seen by health care provider

== ENCOUNTER 2018-09-16 15:03 | Emergency (ER) | payer BC ==
[2018-09-16 15:50] VITALS: BP 166/95
--- NOTE | 2018-09-16 16:13 | UC ---
Skin Complaint HPI - HPI Summary HPI Summary: 58 yo male presents with chronic right ankle wound. He tells me that he is followed by his vascular surgeon and PCP for this. Most recently saw his vascular surgeon last week for this and finished anbx a few days ago. Pt says that his surgeon told him to be seen for a wound culture if his pain returned after stopping antibiotics. Pt's pain returned today and is here requesting a wound culture and he wishes to f/u with his surgeon. Denies fever or chills. - History of Current Complaint Chief Complaint: UCLowerExtremity Time Seen by Provider: 09/16/18 16:13 Stated Complaint: SKIN COMPLAINT Hx Obtained From: Patient Onset/Duration: Sudden Onset Onset Severity: Mild Current Severity: Mild Pain Intensity: 3 Pain Scale Used: 0-10 Numeric - Allergy/Home Medications Allergies/Adverse Reactions: Allergies Allergy/AdvReac Type Severity Reaction Status Date / Time diltiazem [From Cardizem] Allergy Unknown Unknown Verified 09/16/18 15:51 Reaction Details Sulfa (Sulfonamide Allergy GI Upset Verified 09/16/18 15:51 Antibiotics) PMH/Surg Hx/FS Hx/Imm Hx Endocrine History: Dyslipidemia Cardiovascular History: Hypertension - Surgical History Surgical History: Yes Surgery Procedure, Year, and Place: R ankle fracture repair, VASCULAR LASER SURGERY - Family History Known Family History: Positive: Cardiac Disease, Hypertension - Social History Lives: With Family Alcohol Use: None Alcohol Amount: SOCIAL Substance Use Type: None Smoking Status (MU): Never Smoked Tobacco Have You Smoked in the Last Year: No - Immunization History Most Recent Influenza Vaccination: never Most Recent Pneumonia Vaccination: never Review of Systems All Other Systems Reviewed And Are Negative: Yes Constitutional: Positive: Negative Skin: Positive: Other - Wound right ankle Respiratory: Positive: Negative Cardiovascular: Positive: Negative Neurovascular: Positive: Negative Neurological: Positive: Negative Psychological: Positive: Negative Physical Exam - Summary Physical Exam Summary: GENERAL: NAD. WDWN. No pain distress. SKIN: RIGHT ANKLE: Lateral malleolus with 1.5cm stellate shaped wound with dried yellow material within the wound. Mild TTP. Mild surrounding erythema and edema. FROM right ankle. NECK: Supple. Nontender. No lymphadenopathy. CHEST: No accessory muscle use. Breathing comfortably and in no distress. CV: Pulses intact. Cap refill <2seconds NEURO: Alert. PSYCH: Age appropriate behavior. Triage Information Reviewed: Yes Vital Signs: Initial Vital Signs Temp 98 F 09/16/18 15:46 Pulse 69 09/16/18 15:46 Resp 16 09/16/18 15:46 BP 166/95 09/16/18 15:46 Pulse Ox 97 09/16/18 15:46 Vital Signs Reviewed: Yes Course/Dx - Course Course Of Treatment: Pt says that he has had imaging on this ankle in the past for "deeper infection" and was always normal. He does not want to go to the ER for this today and prefers to f/u with his vascular surgeon after the wound culture results. Wound culture was obtained today and wound dressed with telfa. - Diagnoses Provider Diagnosis: Wound of ankle Discharge - Sign-Out/Discharge Documenting (check all that apply): Patient Departure All imaging exams completed and their final reports reviewed: No Studies - Discharge Plan Condition: Stable Disposition: HOME Patient Education Materials: Chronic Wound Care (ED) Referrals: Jarocho Gutiérrez MD [Primary Care Provider] - Additional Instructions: If you develop a fever, shortness of breath, chest pain, new or worsening symptoms - please call your PCP or go to the ED. Your blood pressure was high at todays visit. Please see your primary provider within 4 weeks for recheck and re-evaluation. 1) Your wound culture results will be back in 2-3 days 2) Please follow up with your vascular surgeon and PCP for continued care of your ankle wound - Billing Disposition and Condition Condition: STABLE Disposition: Home - Attestation Statements Provider Attestation: I was available for consult. This patient was seen by the MAGNO. The patient was not presented to, seen by, or examined by me. -Louise
--- NOTE | 2018-09-20 07:54 | UC ---
- Progress Note Progress Note: Culture results, September 20, 2018 Negative for MRSA and S. Aureus. Preliminary: positive for pseudomonas. Plan: We will call the patient to check on his condition. The patient may need to be reevaluated if he has any increasing infection or if he has not seen his surgeon for evaluation and treatment. The pseudomonas result is preliminary , but it may need treatment. Close follow-up is advised. Calin Hirsch M.D. Course/Dx - Diagnoses Provider Diagnoses: Wound of ankle Discharge - Sign-Out/Discharge Documenting (check all that apply): Post-Discharge Follow Up All imaging exams completed and their final reports reviewed: No Studies - Discharge Plan Condition: Stable Disposition: HOME Patient Education Materials: Chronic Wound Care (ED) Referrals: Jarocho Gutiérrez MD [Primary Care Provider] - Additional Instructions: If you develop a fever, shortness of breath, chest pain, new or worsening symptoms - please call your PCP or go to the ED. Your blood pressure was high at todays visit. Please see your primary provider within 4 weeks for recheck and re-evaluation. 1) Your wound culture results will be back in 2-3 days 2) Please follow up with your vascular surgeon and PCP for continued care of your ankle wound - Billing Disposition and Condition Condition: STABLE Disposition: Home
--- NOTE | 2018-09-20 20:25 | UC ---
- Progress Note Progress Note: Final culture and sensitivities reviewed with Dr. Santos: +PREVOTELLA BIVIA POSITIVE bETA LACTAMASE; +PSEUDOMONAS which is sensitive to Cipro. Plan is to call patient and suggest taking Cipro. He does have a specialist involved with his wounds and we can call patient and ask him if he'd like us to send them the final wound c/s for further tx plan. Course/Dx - Diagnoses Provider Diagnoses: Wound of ankle Discharge - Sign-Out/Discharge Documenting (check all that apply): Post-Discharge Follow Up All imaging exams completed and their final reports reviewed: No Studies - Discharge Plan Condition: Stable Disposition: HOME Patient Education Materials: Chronic Wound Care (ED) Referrals: Jarocho Gutiérrez MD [Primary Care Provider] - Additional Instructions: If you develop a fever, shortness of breath, chest pain, new or worsening symptoms - please call your PCP or go to the ED. Your blood pressure was high at todays visit. Please see your primary provider within 4 weeks for recheck and re-evaluation. 1) Your wound culture results will be back in 2-3 days 2) Please follow up with your vascular surgeon and PCP for continued care of your ankle wound - Billing Disposition and Condition Condition: STABLE Disposition: Home
== END 2018-09-16 16:42 | disposition home or self-care (01) ==
LOC: UCEAST 15:03
DX: S91.002D Unspecified open wound, left ankle, subsequent encounter (principal); I10 Essential (primary) hypertension; Z88.8 Allergy status to other drugs, medicaments and biological substances; Z88.2 Allergy status to sulfonamides; X58.XXXD Exposure to other specified factors, subsequent encounter
CPT/HCPCS: 87070; 87076; 87077; 87186; 87205; 87640; 87641; 99211; G0463

== ENCOUNTER 2018-10-09 09:25 | Emergency (ER) | payer BC ==
[2018-10-09 09:30] VITALS: BP 151/91
--- NOTE | 2018-10-09 09:42 | ED ---
Skin Complaint - HPI Summary HPI Summary: This pt is a 58 y/o male presenting to [facility] c/o acute on chronic wound and redness on right lower extremity. Pt reports this wound is chronic and sees Dr. Lagunas for "circulation problem" and Dr. Monique for infectious disease. He states he is prone to infections on right leg. He notes a fever today of 100.8F. Denies any pain, chest pain, SOB. The last time he was on antibiotics was 4 weeks ago. His PCP is Dr. Mcconnell. - History of Current Complaint Chief Complaint: EDExtremityLower Time Seen by Provider: 10/09/18 09:33 Stated Complaint: FEVER AND MAY HAVE INFECTION IN LEG PER PT Hx Obtained From: Patient Onset/Duration: Started Days Ago, Still Present Skin Exposure Onset/Duration: Days Ago Timing: Lasting Days Current Severity: None Pain Intensity: 0 Pain Scale Used: 0-10 Numeric Skin Location: Leg - right Character: Redness Aggravating Symptom(s): Nothing Alleviating Symptom(s): Nothing Associated Signs & Symptoms: Fever - Additional Pertinent History Primary Care Physician: [id number] - Allergy/Home Medications Allergies/Adverse Reactions: Allergies Allergy/AdvReac Type Severity Reaction Status Date / Time diltiazem [From Cardizem] Allergy Unknown Unknown Verified 10/09/18 10:25 Reaction Details Sulfa (Sulfonamide Allergy GI Upset Verified 10/09/18 10:25 Antibiotics) Home Medications: Home Medications Omeprazole 20 mg PO DAILY 10/09/18 [History Confirmed 10/09/18] PMH/Surg Hx/FS Hx/Imm Hx Endocrine/Hematology History: Denies: Hx Diabetes, Hx Thyroid Disease, Hx Anemia Cardiovascular History: Reports: Hx Hypertension Denies: Hx Angina, Hx Pacemaker/ICD, Other Cardiovascular Problems/Disorders Respiratory History: Reports: Hx Sleep Apnea Denies: Hx Asthma, Hx Chronic Obstructive Pulmonary Disease (COPD), Other Respiratory Problems/Disorders GI History: Reports: Hx Gastroesophageal Reflux Disease - WELL CONTROLLED Denies: Hx Jaundice, Hx Ulcer, Other GI Disorders Musculoskeletal History: Reports: Hx Bursitis - LEFT HIP Denies: Other Musculoskeletal History Sensory History: Denies: Hx Contacts or Glasses, Hx Hearing Aid Opthamlomology History: Denies: Hx Contacts or Glasses Psychiatric History: Denies: Hx Panic Disorder - Surgical History Surgery Procedure, Year, and Place: R ankle fracture repair, VASCULAR LASER SURGERY Hx Anesthesia Reactions: No Infectious Disease History: No Infectious Disease History: Denies: Hx Clostridium Difficile, Hx Hepatitis, Hx Human Immunodeficiency Virus (HIV), Hx of Known/Suspected MRSA, Hx Shingles, Hx Tuberculosis, Hx Known/ Suspected VRE, Hx Known/Suspected VRSA, History Other Infectious Disease, Traveled Outside the [place] in Last 30 Days - Family History Known Family History: Positive: Cardiac Disease, Hypertension - Social History Alcohol Use: None Alcohol Amount: SOCIAL Substance Use Type: Reports: None Smoking Status (MU): Never Smoked Tobacco Have You Smoked in the Last Year: No Review of Systems Positive: Fever Negative: Chest Pain Negative: Shortness Of Breath Positive: Edema - in right leg Skin: Other - POS: redness and wound on right leg All Other Systems Reviewed And Are Negative: Yes Physical Exam - Summary Physical Exam Summary: VITAL SIGNS: Reviewed. GENERAL: Patient is a well-developed and nourished male who is lying comfortable in the stretcher. Patient is not in any acute respiratory distress. HEAD AND FACE: Normocephalic EYES: PERRLA, EOMI x 2. EARS: Hearing grossly intact. MOUTH: Oropharynx within normal limits. NECK: Supple, trachea is midline, no adenopathy, no JVD, no carotid bruit. CHEST: Symmetric, no tenderness at palpation LUNGS: Clear to auscultation bilaterally. No wheezing or crackles. CVS: Regular rate and rhythm, S1 and S2 present, no murmurs or gallops appreciated. ABDOMEN: Soft, non-tender. Bowel sounds are normal. No abdominal abnormal pulsations. EXTREMITIES: Right lower extremity with chronic venous insufficiency and discoloration. Wound in distal aspect of the right lower extremity with some purulent discharge and some erythema. NEURO: Alert and oriented x 3. No acute neurological deficits. Speech is normal and follows commands. SKIN: Dry and warm Triage Information Reviewed: Yes Vital Signs On Initial Exam: Initial Vitals Temp Pulse Resp BP Pulse Ox 98.7 F 101 20 151/91 97 10/09/18 09:26 10/09/18 09:26 10/09/18 09:26 10/09/18 09:26 10/09/18 09:26 Vital Signs Reviewed: Yes Diagnostics - Vital Signs Vital Signs Temp Pulse Resp BP Pulse Ox 10/09/18 09:26 98.7 F 101 20 151/91 97 - Laboratory Result Diagrams: 10/09/18 09:50 10/09/18 09:50 Lab Statement: Any lab studies that have been ordered have been reviewed, and results considered in the medical decision making process. Re-Evaluation - Re-Evaluation First Eval Re-Evaluation Time: 12:39 Comment: Reviewed results with pt. Also discussed Dr. Mcconnell's recommendations. He will be discharged home. Course/Dx - Course Assessment/Plan: This patient is a 58-year-old male who presents to the emergency department with chief complaint of having erythema, swelling and some purulent discharge in the right lower extremity. The patient reports that this one is chronic secondary to peripheral vascular disease. Test results without any significant abnormality, the white blood cell count is 4.3, glucose is 140. I believe that his wound is not infected. He just has a chronic colonization. I discussed my physical exam, findings and test results with Dr. Regan from infectious disease and he agrees. He recommends no further antibiotics. I also discussed and the case with Dr. Mcconnell, the patients primary care physician, and he also recommends no antibiotics at this time. Therefore the patient will be discharged home with follow-up from Dr. Regan and Dr. mcconnell. I discussed all the findings and test results with the patient. Patient was instructed to return to the emergency room immediately if any of the symptoms return worsens. Plan of care was discussed with the patient and understands and agrees. All questions were answered at patient satisfaction. There were no further complaints or concerns. Lung exam before discharge: CTA B/ L. Good air exchange. No wheezing or crackles heard. CVS: S1 and S2 present. No murmurs appreciated. Patient is alert and oriented x 3. Patient is hemodynamically stable. Patient will be discharged home with follow up from his PCP in the next 2-3 days. - Diagnoses Provider Diagnoses: Chronic wound of extremity - Physician Notifications Discussed Care Of Patient With: Jarocho Mcconnell Time Discussed With Above Provider: 12:35 Instructed by Provider To: Other - Discussed the case with Dr. Mcconnell, pt's PCP, who reports pt saw Dr. Monique on 10/03 and pt had no infection only chronic colonization. Dr. Mcconnell states that no further antibiotics were needed then and he agrees with this. [12:42] Discussed with Dr. Monique, infectious disease, who agrees with discharge. Discharge - Sign-Out/Discharge Documenting (check all that apply): Patient Departure - Discharge home Patient Received Moderate/Deep Sedation with Procedure: No - Discharge Plan Condition: Stable Disposition: HOME Patient Education Materials: Chronic Wound Care (ED), Chronic Wounds (ED) Referrals: Jarocho Mcconnell MD [Primary Care Provider] - Additional Instructions: PLEASE FOLLOW UP WITH YOUR PRIMARY CARE PROVIDER IN 2-3 DAYS. RETURN TO THE ED FOR ANY WORSENING OR NEW SYMPTOMS. - Billing Disposition and Condition Condition: STABLE Disposition: Home - Attestation Statements Document Initiated by Rodolfoibe: Yes Documenting Scribe: Noreen Altman Provider For Whom Caridad is Documenting (Include Credential): Agustin Rogers MD Scribe Attestation: Noreen Perkins, scribed for Agustin Rogers MD on 10/09/18 at 1839. Scribe Documentation Reviewed: Yes Provider Attestation: The documentation as recorded by the Noreen canela accurately reflects the service I personally performed and the decisions made by me, Agustin Rogers MD Status of Scribe Document: Viewed
--- OUTSIDE RECORDS SUMMARY | 2018-10-09 09:58 | XMS REPORT | Continuity of Care Document ---
:1960 External Reference #:[id number] Author Name Maria Isabel Foster Care Team Providers Name Role Phone Jarocho Gutiérrez MD Primary Care Physician Unavailable Payers Date Identification Numbers Payment Provider Subscriber Effective: 2012 Policy Number: [id number] Cassandra Mead PayID: [id number] [address] [address] Mary Grace ANA [place] [address] Effective: 2000 Policy Number: [id number] BS Of CNKristen Mead Expires: 2012 Group Number: [id number] [address] [address] Group Name: [id number] Mary Grace ANA [place] [address] PayID: [id number] Advance Directives Description No Information Available Problems Date Description Provider Status Onset: 06/15/2011 Coronary arteriosclerosis Rick Ramesh M.D. Active Onset: 06/15/2011 Benign essential hypertension Rick Ramesh M.D. Active Onset: 06/15/2011 Pure hypercholesterolemia Rick Ramesh M.D. Active Onset: 05/15/2013 Palpitations Rick Ramesh M.D. Active Onset: 05/15/2013 Morbid obesity Rick Ramesh M.D. Active Onset: 01/13/2014 Edema Rick Ramesh M.D. Active Onset: 03/22/2018 Obstructive sleep apnea syndrome Yari Larson DNP, RN, Active [facility] Family History Date Family Member(s) Observation Comments General no recurrent infection : (age 92 Father due to CAD [place] age 40's. Years) : (age 82 Mother due to Cancer Years) Siblings 4 1 brother hodgkins, 15 years later, age 40 chf attributed to complications of Hodgkins rx. 2018 other 3 without CAD Social History Type Date Description Comments Sex Unknown Marital Status Lives With Alone Occupation [employer] Tobacco Use Start: Unknown Never Smoked Cigarettes Smoking Status Reviewed: 10/03/18 Never Smoked Cigarettes ETOH Use Denies alcohol use Tobacco Use Start: Unknown Patient has never smoked Recreational Drug Use Denies Drug Use Exercise Type/Frequency Exercises regularly 1/2 hr 6x week Allergies, Adverse Reactions, Alerts Date Description Reaction Status Severity Comments 07/31/2013 Diltiazem gi upset. Active 06/13/2005 NKDA Inactive Medications Medication Date Status Form Strength Qnty SIG Indications Ordering Provider Atorvastatin 10/05 Active Tablets 20mg 90tab take one Rick Calcium s tablet by F. mouth every Mauser, day M.D. Inspra 02/09 Active Tablets 25mg 90tab 1 by mouth s every day Satish Ramesh M.D. Calan SR 08/07 Active Tablets 120mg 180ta 2 by mouth ER bs every day Satish Ramesh M.D. Lisinopril 08/01 Active Tablets 20mg 30tab take one s tablet once F. daily Judith Ramesh Omeprazole Active Capsules 20mg 30cap 1 po qd Unknown /0000 DR ines Multivitamins Active 1 tablet po Unknown /0000 daily Metoprolol Active Tablets 25mg 180ta take one Rick Tartrate bs tablet by F. mouth twice Celinauser, a day Judith Iron Active Tablets 325(65Fe) 1 by mouth Unknown /0000 mg every day Eliquis Active Tablets 5mg 1 by mouth Unknown /0000 twice a day Acetaminophen Active Capsules 500mg 2 tab by Unknown /0000 mouth every 6 hours as needed chronic hip pain Cpap Active Device for use Unknown /0000 while sleeping Xarelto 12/28 Hx Tablets 20mg 30tab 1 by mouth s every day Satish Ramesh 04/18 M.DFrida Inspra 09/29 Hx Tablets 25mg 7tabs 1 by mouth every day Satish Ramesh 02/08 M.D. Calan SR 09/29 Hx Tablets 120mg 60tab Take Two ER s Tablets By F. - Mouth Every , M.D. Augmentin 03/06 Hx Tablets 875-125mg 28tab 1 by mouth 682.6 s twice a day Antonio Whyte, 09/28.D. Calan 09/03 Hx Tablets 120mg 1 po qd . - Gadiel, 09/03.D. Calan SR 09/03 Hx Tablets 120mg 60tab 2 by mouth ER s every day . - Gadiel, 09/29.D. Hydrochlorothiazid 09/03 Hx Tablets 25mg 30tab 1 po qd s Frida Ramesh, 01/10.D Lisinopril 07/30 Hx Tablets 10mg 100ta 2 po qam bs . - Gadiel, 08/01.D Lisinopril 07/17 Hx Tablets 10mg 30tab 1 po qd s Frida Ramesh, 07/30.D. Dilt-CD 07/17 Hx Caps ER 120mg 30cap 1 po qd 24HR s starting F. - ..virgilio, 07/31.D. Nabumetone 05/15 Hx Tablets 500mg 1 po bid . - Gadiel, 05/15.D. Lotrel 05/15 Hx Capsules 2.5-10mg 100ca 1/2 tab po ps qd (Back on F. - as of Gadiel, 07/2307/23/13) .D. Potassium Chloride 04/23 Hx Tablets 20Meq 14tab 1 by mouth ER s every day F. - hold as of Gadiel, 03/02 8.2015 M.D. Lipitor 06/21 Hx Tablets 20mg 30tab one tab by s mouth every F. - night at [facility], 10/05 bedtime M.D. Nabumetone 06/15 Hx Tablets 500mg 60tab 1 po daily s - 05/15 Zocor 11/10 Hx Tablets 20mg 30tab 1 po qhs s F. - Celinauser, 06/21 M.D. Metoprolol 06/16 Hx Tablets 50mg 45tab / tablet Rick Tartrate s po qd F. - Mauser, 06/15 M.D. Metoprolol 05/04 Hx Tablets 50mg 180ta 1 po qd ER bs F. - Celinauser, 06/16 M.D. Metoprolol 09/10 Hx Tablets 50mg 60tab 1 po bid Rick Tar s F. - Celinauser, 05/04 M.D. /2008 KCL 08/01 Hx Tablets 20Meq 30tab 1 [...] qd s F. - Mauser, 10/09 M.D. Lotrel 06/08 Hx Capsules 5mg;20 mg 90cap 1 po qd s F. - Mauser, 01/19 M.D. Toprol XL 05/18 Hx Tablets 50mg 30tab 1 po qd s F. - Mauser, 09/10 M.D. Toprol XL 04/05 Hx Tablets 25mg 30tab 1 po qd s F. - Mauser, 05/18 M.D. Niaspan Extended 09/01 Hx Tablets 500mg 30tab 1 po qpm s F. - Feliciar, 08/04 M.D. Advicor 08/18 Hx Tablets 20mg;500 [...] Tablets 50mg taper qod then D/c in . - wk Gadiel, 06/13 M.D. Aspirin 05/10 Hx Gelcaps 325mg 90uni 1 po qd ts F. - Mauser, 05/17 M.D. Plavix 05/10 Hx Tablets 75mg 30tab 1 po qd s F. - Mauser, 05/12 M.D. Toprol XL 05/10 Hx Tablets 50mg 30tab 1 po qd s F. - Mauser, 05/17 M.D. Altace 05/10 Hx Capsules 5mg 30cap 1 po qd s F. - Mauser, 06/13 M.D. Cipro Hx Tablets 500mg 20tab 1 tablet by Unknown /0000 s mouth twice - a day( new 02/02 medication started 1 week ago) Percocet /00 Hx 1 tablet po Unknown /0000 as needed - for pain 02/08 Gentamicin Sulfate 00/00 Hx Cream 0.1% 30gm every day Aleksander /0000 w/ dressing D. - changes Macqueen, 02/08 M.D. Triamcinolone Hx Ointment 0.1% 30gm [...] every 6-8 02/25 hours needed for pain Immunizations Description No Information Available Vital Signs Date Vital Result Comment 10/03/2018 9:24am Height 63 inches 5'3" Weight 271.00 lb Heart Rate 58 /min BP Systolic Sitting 140 mmHg BP Diastolic Sitting 88 mmHg Respiratory Rate 14 /min Body Temperature 97.9 F BMI (Body Mass Index) 48.0 kg/m2 03/22/2018 2:25pm Height 63 inches 5'3" Weight 267.00 lb BMI (Body Mass Index) 47.3 kg/m2 02/26/2018 10:03am Height 63 inches 5'3" Weight 269.00 lb Heart Rate 96 /min BP Systolic Sitting 126 mmHg BP Diastolic Sitting 100 mmHg Respiratory Rate 14 /min O2 % BldC Oximetry 98 % BMI (Body Mass Index) 47.6 kg/m2 Neck Circumference in inches 17 02/08/2018 10:43am Height 63 inches 5'3" Weight 274.00 lb [...] 48.5 kg/m2 Ejection Fraction 55-60% 11/28/17 12/22/2017 10:54am Weight 268.00 lb Heart Rate 64 /min BP Systolic Sitting 158 mmHg large cuff left arm BP Diastolic Sitting 80 mmHg large cuff left arm BP Systolic Standing 140 mmHg BP Diastolic Standing 88 mmHg Respiratory Rate 16 /min 04/04/2017 10:35am Height 63 inches 5'3" Weight 262.00 lb w/shoes Heart Rate 78 /min BP Systolic Sitting 158 mmHg LA lg cuff BP Diastolic Sitting 104 mmHg LA lg cuff BMI (Body Mass Index) 46.4 kg/m2 Ejection Fraction 60-65% Echo 06/25/13 01/05/2017 3:22pm Height 63 inches 5'3" Heart Rate 60 /min BP Systolic Sitting 139 mmHg BP Diastolic Sitting 96 mmHg Respiratory Rate 14 /min Body Temperature 99.2 F 12/15/2016 2:41pm Height 63 inches 5'3" Weight 267.00 lb w/shoes Heart Rate 68 /min BP Systolic Sitting 184 mmHg LA lg cuff BP Diastolic Sitting 98 mmHg LA lg cuff BP Systolic Standing 148 mmHg la repeat sitting BP Diastolic Standing 89 mmHg la repeat sitting BMI (Body Mass Index) 47.3 kg/m2 Ejection Fraction 60-65% Echo 06/25/13 08/25/2016 10:21am Height 63 inches 5'3" Weight 267.50 lb with shoes Heart Rate 78 /min BP Systolic Sitting 152 mmHg LA lrg cuff BP Diastolic Sitting 92 mmHg LA lrg cuff BP Systolic Standing 132 mmHg la repeat sitting BP Diastolic Standing 72 mmHg la repeat sitting BMI (Body Mass Index) 47.4 kg/m2 Ejection Fraction 60% - 65% echo 06/25/13 03/02/2016 11:25am Height 63 inches 5'3" Weight 267.00 lb with shoes Heart Rate 66 /min BP Systolic Sitting 130 mmHg La lg cuff BP Diastolic Sitting 70 mmHg La lg cuff Respiratory Rate 16 /min BMI (Body Mass Index) 47.3 kg/m2 Ejection Fraction 60-65% date 06/25/2013 ECHO 02/10/2016 11:00am Height 63 inches 5'3" Weight 267.00 lb w/o shoes Heart Rate 66 /min BP Systolic Sitting 158 mmHg LA lrg cuff BP Diastolic Sitting 92 mmHg LA lrg cuff BMI (Body Mass Index) 47.3 kg/m2 Ejection Fraction 60% - 65% 06/25/13 echo 10/09/2014 12:03pm BP Systolic 142 mmHg BP Diastolic 92 mmHg 10/09/2014 11:55am Height 63 inches 5'3" Heart Rate 70 /min BP Systolic 160 mmHg LA large cuff BP Diastolic 100 mmHg LA large cuff 09/29/2014 3:05pm Height 63 inches 5'3" Weight 257.75 lb w/shoes Heart Rate 62 /min BP Systolic Sitting 150 mmHg LA lg cuff BP Diastolic Sitting 90 mmHg LA lg cuff Respiratory Rate 14 /min BMI (Body Mass Index) 45.7 kg/m2 03/06/2014 3:58pm Height 63 inches 5'3" Weight 253.00 lb Heart Rate 64 /min BP Systolic Standing 162 mmHg BP Diastolic Standing 94 mmHg Respiratory Rate 16 /min BMI (Body Mass Index) 44.8 kg/m2 02/03/2014 3:35pm Height 63 inches 5'3" Weight 257.00 lb Heart Rate 78 /min regular BP Systolic Sitting 142 mmHg BP Diastolic Sitting 76 mmHg Respiratory Rate 20 /min Body Temperature 98.5 F BMI (Body Mass Index) 45.5 kg/m2 01/13/2014 2:25pm Height 63 inches 5'3" Weight 261.00 lb with shoes Heart Rate 60 /min BP Systolic Sitting 138 mmHg Ra lg cuff BP Diastolic Sitting 80 mmHg Ra lg cuff BP Systolic Standing 130 mmHg Ra lg cuff BP Diastolic Standing 72 mmHg Ra lg cuff Respiratory Rate 16 /min BMI (Body Mass Index) 46.2 kg/m2 09/03/2013 2:25pm Height 64 inches 5'4" Weight 267.00 lb Heart Rate 88 /min BP Systolic Sitting 156 mmHg BP Diastolic Sitting 90 mmHg BMI (Body Mass Index) 45.8 kg/m2 07/30/2013 2:07pm Height 64 inches 5'4" Weight 259.75 lb BP Systolic Sitting 154 mmHg BP Diastolic Sitting 98 mmHg BMI (Body Mass Index) 44.6 kg/m2 07/17/2013 10:51am Heart Rate 68 /min BP Systolic 147 mmHg Auto BP Diastolic 99 mmHg Auto BP Systolic Sitting 146 mmHg manual BP Diastolic Sitting 94 mmHg manual Respiratory Rate 20 /min 05/15/2013 10:26am Height 62 inches 5'2" Weight 251.00 lb Heart Rate 76 /min BP Systolic 110 mmHg BP Diastolic 80 mmHg Respiratory Rate 16 /min BMI (Body Mass Index) 45.9 kg/m2 04/06/2012 12:51pm Height 62 inches 5'2" Weight 263.00 lb Heart Rate 76 /min BP Systolic Sitting 115 mmHg BP Diastolic Sitting 72 mmHg Respiratory Rate 20 /min BMI (Body Mass Index) 48.1 kg/m2 06/15/2011 9:25am Height 62 inches 5'2" Weight 267.00 lb Heart Rate 75 /min BP Systolic 132 mmHg BP Diastolic 80 mmHg BMI (Body Mass Index) 48.8 kg/m2 05/04/2009 11:14am Height 62 inches 5'2" Weight 263.00 lb Heart Rate 63 /min BP Systolic Sitting 128 mmHg L BP Diastolic Sitting 80 mmHg L BMI (Body Mass Index) 48.1 kg/m2 07/29/2008 11:25am Height 62 inches 5'2" Weight 266.00 lb Heart Rate 61 /min BP Systolic Sitting 136 mmHg BP Diastolic Sitting 84 mmHg BMI (Body Mass Index) 48.6 kg/m2 01/02/2008 3:02pm Height 62 inches 5'2" Weight 262.00 lb Heart Rate 63 /min BP Systolic Sitting 120 mmHg L BP Diastolic Sitting 70 mmHg L BMI (Body Mass Index) 47.9 kg/m2 01/19/2007 11:00am Height 62 inches 5'2" Weight 258.00 lb Heart Rate 67 /min BP Systolic Sitting 140 mmHg L BP Diastolic Sitting 94 mmHg L BMI (Body Mass Index) 47.2 kg/m2 06/26/2006 2:49pm Height 62 inches 5'2" Weight 255.00 lb Heart Rate 63 /min BP Systolic Sitting 140 mmHg L BP Diastolic Sitting 88 mmHg L BMI (Body Mass Index) 46.6 kg/m2 06/08/2006 10:01am Height 62 inches 5'2" Heart Rate 64 /min reg BP Systolic Sitting 170 mmHg BP Diastolic Sitting 100 mmHg BP Systolic Standing 156 mmHg BP Diastolic Standing 100 mmHg 05/31/2006 10:03am Height 62 inches 5'2" Weight 256.00 lb Heart Rate 60 /min reg BP Systolic Sitting 140 mmHg BP Diastolic Sitting 84 mmHg BP Systolic Standing 150 mmHg BP Diastolic Standing 88 mmHg BMI (Body Mass Index) 46.8 kg/m2 04/19/2006 1:40pm Height 62 inches 5'2" BP Systolic Sitting 154 mmHg BP Diastolic Sitting 92 mmHg BP Systolic Standing 158 mmHg BP Diastolic Standing 98 mmHg 04/19/2006 1:33pm Height 62 inches 5'2" 04/05/2006 10:11am Height 62 inches 5'2" Weight 250.00 lb Heart Rate 62 /min BP Systolic Sitting 150 mmHg BP Diastolic Sitting 100 mmHg BP Systolic Standing 154 mmHg BP Diastolic Standing 104 mmHg BMI (Body Mass Index) 45.7 kg/m2 11/24/2005 10:17am Height 62 inches 5'2" Weight 258.00 lb Heart Rate 61 /min BP Systolic Sitting 140 mmHg R BP Diastolic Sitting 80 mmHg R BP Systolic Standing 134 mmHg R BP Diastolic Standing 80 mmHg R BMI (Body Mass Index) 47.2 kg/m2 07/14/2005 2:25pm Height 62 inches 5'2" Weight 254.00 lb Heart Rate 84 /min BP Systolic Sitting 130 mmHg BP Diastolic Sitting 90 mmHg BP Systolic Standing 124 mmHg BP Diastolic Standing 90 mmHg BMI (Body Mass Index) 46.5 kg/m2 06/13/2005 11:21am Height 62 inches 5'2" Weight 259.00 lb Heart Rate 72 /min BP Systolic Sitting 130 mmHg L BP Diastolic Sitting 100 mmHg L O2 % BldC Oximetry 96 % BMI (Body Mass Index) 47.4 kg/m2 Results Test Date Facility Test Result H/L Range Note Lipid Profile 02/09/2018 [facility] Triglycerides 113 mg/dL 1 (Trig/Chol/HDL) [address] [place] [address] [phone] Cholesterol 102 mg/dL 2 HDL Cholesterol 31.4 mg/dL 3 LDL Cholesterol 48 mg/dL 4 Liver Function 02/09/2018 [facility] Total Protein 6.9 g/dL N 6.4-8.[address] [place] [address] [phone] Albumin 3.8 g/dL N 3.2-5.2 Globulin 3.1 g/dL N 2-4 Albumin/Globulin Ratio 1.2 N 1-3 Total Bilirubin 0.60 mg/dL N 0.2-1.0 Direct Bilirubin 0.10 mg/dL N 0.03-0.18 Indirect Bilirubin 0.5 mg/dL N 0.3-1.0 Alkaline Phosphatase 75 U/L N 34-104 Alt 33 U/L N 7-52 Ast 27 U/L N 13-39 CBC Auto Diff 02/09/2018 [facility] White Blood 6.6 10^3/uL N 3.5-10.[address] [place] [address] [phone] Red Blood Count 4.73 10^6/uL N 4.00-5.40 Hemoglobin 13.1 g/dL Low 14.0-18.0 Hematocrit 39 % Low 42-52 Mean Corpuscular Volume 82 fL N 80-94 Mean Corpuscular Hemoglobin 28 pg N 27-31 Mean Corpuscular HGB Conc 34 g/dL N 31-36 Red Cell Distribution Width 14 % N 10.5-15 Platelet Count 227 10^3/uL N 150-450 Mean Platelet Volume 8.6 um3 N 7.4-10.4 Abs Neutrophils 4.1 10^3/uL N 1.5-7.7 Abs Lymphocytes 1.8 10^3/uL N 1.0-4.8 Abs Monocytes 0.6 10^3/uL N 0-0.8 Abs Eosinophils 0.1 10^3/uL N 0-0.6 Abs Basophils 0 10^3/uL N 0-0.2 Abs Nucleated RBC 0 10^3/uL Granulocyte % 62.3 % N 38-83 Lymphocyte % 27.4 % N 25-47 Monocyte % 8.4 % High 0-7 Eosinophil % 1.5 % N 0-6 Basophil % 0.4 % N 0-2 Nucleated Red Blood Cells % 0.1 Basic Metabolic Panel 02/09/2018 [facility] Sodium 138 mmol/L N 135-[address] [place] [address] [phone] Potassium 4.0 mmol/L N 3.5-5.0 Chloride 105 mmol/L N 101-111 Co2 Carbon Dioxide 26 mmol/L N 22-32 Anion Gap 7 mmol/L N 2-11 Glucose 134 mg/dL High 70-100 Blood Urea Nitrogen 13 mg/dL N 6-24 Creatinine 0.86 mg/dL N 0.67-1.17 BUN/Creatinine Ratio 15.1 N 8-20 Calcium 8.6 mg/dL N 8.6-10.3 Egfr Non- 91.0 >60 Egfr 110.1 >60 5 Laboratory test 02/09/2018 [facility] Hemoglobin A1c 6.4 % High 4.0-5.6 [address] (Glyco HGB) [place] [address] [phone] Lipid Panel - 12/12/2017 [facility] Creatine 102 U/L N 10-223 [address] Kinase(CK) [place] [address] [phone] Comp Metabolic 12/12/2017 [facility] Sodium 140 N 139-[address] mmol/[place] [address] [phone] Potassium 4.2 mmol/L N 3.5-5.0 Chloride 105 mmol/L N 101-111 Co2 Carbon Dioxide 26 mmol/L N 22-32 Anion Gap 9 mmol/L N 2-11 Glucose 131 mg/dL High 70-100 Blood Urea Nitrogen 16 mg/dL N 6-24 Creatinine 0.88 mg/dL N 0.67-1.17 BUN/Creatinine Ratio 18.2 N 8-20 Calcium 9.1 mg/dL N 8.6-10.3 Total Protein 7.3 g/dL N 6.4-8.9 Albumin 4.0 g/dL N 3.2-5.2 Globulin 3.3 g/dL N 2-4 Albumin/Globulin Ratio 1.2 N 1-3 Total Bilirubin 0.60 mg/dL N 0.2-1.0 Alkaline Phosphatase 80 U/L N 34-104 Alt 26 U/L N 7-52 Ast 19 U/L N 13-39 Egfr Non- 88.6 >60 Egfr 114.0 >60 8 Lipid Profile 12/12/2017 [facility] Triglycerides 122 mg/dL 9 (Trig/Chol/HDL) [address] [place] [address] [phone] Cholesterol 97 mg/dL 10 HDL Cholesterol 30.8 mg/dL 11 LDL Cholesterol 42 mg/dL 12 CBC Auto Diff 12/12/2017 [facility] White Blood 7.3 10^3/uL N 3.5-10.[address] [place] [address] [phone] Red Blood Count 4.93 10^6/uL N 4.0-5.4 Hemoglobin 13.4 g/dL Low 14.0-18.0 Hematocrit 41 % Low 42-52 Mean Corpuscular Volume 82 fL N 80-94 Mean Corpuscular Hemoglobin 27 pg N 27-31 Mean Corpuscular HGB Conc 33 g/dL N 31-36 Red Cell Distribution Width 14 % N 10.5-15 Platelet Count 256 10^3/uL N 150-450 Mean Platelet Volume 9.2 um3 N 7.4-10.4 Abs Neutrophils 4.6 10^3/uL N 1.5-7.7 Abs Lymphocytes 2.0 10^3/uL N 1.0-4.8 Abs Monocytes 0.5 10^3/uL N 0-0.8 Abs Eosinophils 0.2 10^3/uL N 0-0.6 Abs Basophils 0.1 10^3/uL N 0-0.2 Abs Nucleated RBC 0 10^3/uL Granulocyte % 62.5 % N 38-83 Lymphocyte % 27.2 % N 25-47 Monocyte % 6.9 % N 0-7 Eosinophil % 2.6 % N 0-6 Basophil % 0.8 % N 0-2 Nucleated Red Blood Cells % 0.1 Laboratory test 12/12/2017 [facility] Magnesium 2.2 mg/dL N 1.9-2.[address] [place] [address] [phone] TSH (Thyroid Stim Horm) 1.08 mcIU/mL N 0.34-5.60 14 Laboratory test 04/26/2017 [facility] TSH (Thyroid 1.11 N 0.34 -5.[address] Stim Horm) mcIU/[place] [address] [phone] Iron & Iron 04/26/2017 [facility] Iron 47 g/dL Low 50-[address] [place] [address] [phone] Unsaturated Iron Binding 374 g/dL N Total Iron Binding Capacity 421 g/dL N 250-450 % Iron Saturation 11 % Low 15-55 Laboratory test 04/26/2017 [facility] B-Type Natriuretic 95 pg/ mL N [address] [place] [address] [phone] Magnesium 2.0 mg/dL N 1.9-2.7 CBC Auto Diff 04/26/2017 [facility] White Blood 6.5 10^3/uL N 3.5-10.[address] [place] [address] [phone] Red Blood Count 4.67 10^6/uL N 4.0-5.4 Hemoglobin 12.3 g/dL Low 14.0-18.0 Hematocrit 38 % Low 42-52 Mean Corpuscular Volume 81 fL N 80-94 Mean Corpuscular Hemoglobin 26 pg Low 27-31 Mean Corpuscular HGB Conc 33 g/dL N 31-36 Red Cell Distribution Width 13 % N 10.5-15 Platelet Count 240 10^3/uL N 150-450 Mean Platelet Volume 10 um3 N 7.4-10.4 Abs Neutrophils 4.1 10^3/uL N 1.5-7.7 Abs Lymphocytes 1.8 10^3/uL N 1.0-4.8 Abs Monocytes 0.5 10^3/uL N 0-0.8 Abs Eosinophils 0.1 10^3/uL N 0-0.6 Abs Basophils 0 10^3/uL N 0-0.2 Abs Nucleated RBC 0 10^3/uL N Granulocyte % 63.2 % N 38-83 Lymphocyte % 26.8 % N 25-47 Monocyte % 8.0 % N 1-9 Eosinophil % 1.6 % N 0-6 Basophil % 0.4 % N 0-2 Nucleated Red Blood Cells % 0 N Lipid Profile 04/26/2017 [facility] Triglycerides 71 mg/dL N 16 (Trig/Chol/HDL) [address] [place] [address] [phone] Cholesterol 82 mg/dL N 17 HDL Cholesterol 31.3 mg/dL N 18 LDL Cholesterol 37 mg/dL N 19 Lipid Panel - 04/26/2017 [facility] Creatine 98 U/L N 10-[address] Kinase(CK) [place] [address] [phone] Comp Metabolic 04/26/2017 [facility] Sodium 138 N 133-[address] mmol/[place] [address] [phone] Potassium 4.1 mmol/L N 3.5-5.0 Chloride 104 mmol/L N 101-111 Co2 Carbon Dioxide 29 mmol/L N 22-32 Anion Gap 5 mmol/L N 2-11 Glucose 115 mg/dL High 70-100 Blood Urea Nitrogen 14 mg/dL N 6-24 Creatinine 0.87 mg/dL N 0.67-1.17 BUN/Creatinine Ratio 16.1 N 8-20 Calcium 9.0 mg/dL N 8.6-10.3 Total Protein 7.3 g/dL N 6.4-8.9 Albumin 4.0 g/dL N 3.2-5.2 Globulin 3.3 g/dL N 2-4 Albumin/Globulin Ratio 1.2 N 1-3 Total Bilirubin 0.60 mg/dL N 0.2-1.0 Alkaline Phosphatase 70 U/L N 34-104 Alt 23 U/L N 7-52 Ast 19 U/L N 13-39 Egfr Non- 90.1 N >60 Egfr 115.9 N >60 20 CBC Auto 12/25/2016 [facility] White Blood 12.3 10^3/uL High 3.5-10.[address] [place] [address] [phone] Red Blood Count 4.87 10^6/uL N 4.0-5.4 Hemoglobin 13.4 g/dL Low 14.0-18.0 Hematocrit 41 % Low 42-52 Mean Corpuscular Volume 84 fL N 80-94 Mean Corpuscular Hemoglobin 28 pg N 27-31 Mean Corpuscular HGB Conc 33 g/dL N 31-36 Red Cell Distribution Width 14 % N 10.5-15 Platelet Count 230 10^3/uL N 150-450 Mean Platelet Volume 9 um3 N 7.4-10.4 Abs Neutrophils 9.2 10^3/uL High 1.5-7.7 Abs Lymphocytes 2.0 10^3/uL N 1.0-4.8 Abs Monocytes 0.9 10^3/uL High 0-0.8 Abs Eosinophils 0.1 10^3/uL N 0-0.6 Abs Basophils 0.1 10^3/uL N 0-0.2 Abs Nucleated RBC 0 10^3/uL N Granulocyte % 74.7 % N 38-83 Lymphocyte % 16.5 % Low 25-47 Monocyte % 7.5 % N 1-9 Eosinophil % 0.7 % N 0-6 Basophil % 0.6 % N 0-2 Nucleated Red Blood Cells % 0 N Laboratory test 12/25/2016 [facility] Lactic Acid 1.3 mmol/L N 0.5-2.0 21 finding [address] [place] [address] [phone] Comp Metabolic 12/25/2016 [facility] Sodium 132 mmol/L Low 133 -145 Panel [address] [place] [address] [phone] Potassium 3.7 mmol/L N 3.5-5.0 Chloride 100 mmol/L Low 101-111 Co2 Carbon Dioxide 24 mmol/L N 22-32 Anion Gap 8 mmol/L N 2-11 Glucose 144 mg/dL High 70-100 Blood Urea Nitrogen 15 mg/dL N 6-24 Creatinine 0.89 mg/dL N 0.67-1.17 BUN/Creatinine Ratio 16.9 N 8-20 Calcium 9.1 mg/dL N 8.6-10.3 Total Protein 8.1 g/dL N 6.4-8.9 Albumin 4.2 g/dL N 3.2-5.2 Globulin 3.9 g/dL N 2-4 Albumin/Globulin Ratio 1.1 N 1-3 Total Bilirubin 0.90 mg/dL N 0.2-1.0 Alkaline Phosphatase 76 U/L N 34-104 Alt 24 U/L N 7-52 Ast 19 U/L N 13-39 Egfr Non- 87.8 N >60 Egfr 112.9 N >60 22 Laboratory test 12/25/2016 [facility] C Reactive 27.52 mg/L High < 5.[address] [place] [address] [phone] Hemoglobin A1c (Glyco HGB) 6.0 % High Less than 6.0 24 Inr/Protime 12/25/2016 [facility] Inr 0.99 N 0.89-1.11 [address] [place] [address] [phone] Laboratory test 10/21/2016 [facility] Surgical SEE RESULT [address] [place] [address] [phone] Lipid Panel - 02/29/2016 [facility] Creatine 113 U/L N 10-223 26, [address] Kinase(CK) [place] [address] [phone] Comp Metabolic 02/29/2016 [facility] Sodium 140 mmol/L N 133- [address] [place] [address] [phone] Potassium 4.1 mmol/L N 3.5-5.0 Chloride 107 mmol/L N 101-111 Co2 Carbon Dioxide 26 mmol/L N 22-32 Anion Gap 7 mmol/L N 2-11 Glucose 124 mg/dL High 70-100 Blood Urea Nitrogen 15 mg/dL N 6-24 Creatinine 0.87 mg/dL N 0.67-1.17 BUN/Creatinine Ratio 17.2 N 8-20 Calcium 8.9 mg/dL N 8.6-10.3 Total Protein 7.0 g/dL N 6.4-8.9 Albumin 3.8 g/dL N 3.2-5.2 Globulin 3.2 g/dL N 2-4 Albumin/Globulin Ratio 1.2 N 1-3 Total Bilirubin 0.30 mg/dL N 0.2-1.0 Alkaline Phosphatase 72 U/L N 34-104 Alt 26 U/L N 7-52 Ast 21 U/L N 13-39 Egfr Non- 90.4 N >60 Egfr 116.3 N >60 28 Lipid Profile 02/29/2016 [facility] Triglycerides 108 mg/dL N 29 (Trig/Chol/HDL) [address] [place] [address] [phone] Cholesterol 102 mg/dL N 30 HDL Cholesterol 30.5 mg/dL N 31 LDL Cholesterol 50 mg/dL N 32 CBC Auto Diff 02/29/2016 [facility] White Blood 5.7 10^3/uL N 3.5-10.[address] [place] [address] [phone] Red Blood Count 4.81 10^6/uL N 4.0-5.4 Hemoglobin 12.9 g/dL Low 14.0-18.0 Hematocrit 39 % Low 42-52 Mean Corpuscular Volume 82 fL N 80-94 Mean Corpuscular Hemoglobin 27 pg N 27-31 Mean Corpuscular HGB Conc 33 g/dL N 31-36 Red Cell Distribution Width 14 % N 10.5-15 Platelet Count 240 10^3/uL N 150-450 Mean Platelet Volume 9 um3 N 7.4-10.4 Abs Neutrophils 3.4 10^3/uL N 1.5-7.7 Abs Lymphocytes 1.7 10^3/uL N 1.0-4.8 Abs Monocytes 0.5 10^3/uL N 0-0.8 Abs Eosinophils 0.1 10^3/uL N 0-0.6 Abs Basophils 0.1 10^3/uL N 0-0.2 Abs Nucleated RBC 0.02 10^3/uL N Granulocyte % 58.8 % N 38-83 Lymphocyte % 30.2 % N 25-47 Monocyte % 8.8 % N 1-9 Eosinophil % 1.1 % N 0-6 Basophil % 1.1 % N 0-2 Nucleated Red Blood Cells % 0.3 N Laboratory test 02/29/2016 [facility] Magnesium 2.0 mg/dL N 1.9-2.7 33 finding [address] [place] [address] [phone] TSH (Thyroid Stim Horm) 1.29 mcIU/mL N 0.34-5.60 34 Lipid Profile 01/29/2015 [facility] Triglycerides 125 mg/dL N 35 (Trig/Chol/HDL) [address] [place] [address] [phone] Cholesterol 119 mg/dL N 36 HDL Cholesterol 29.0 mg/dL N 37 LDL Cholesterol 65 mg/dL N 38 Comp Metabolic Panel 01/29/2015 [facility] Sodium 139 mmol/L N 133-145 [address] [place] [address] [phone] Potassium 3.7 mmol/L N 3.5-5.0 Chloride 104 mmol/L N 101-111 Co2 Carbon Dioxide 29 mmol/L N 22-32 Anion Gap 6 mmol/L N 2-11 Glucose 105 mg/dL High 70-100 Blood Urea Nitrogen 9 mg/dL N 6-24 Creatinine 0.73 mg/dL N 0.67-1.17 BUN/Creatinine Ratio 12.3 N 8-20 Calcium 8.6 mg/dL N 8.6-10.3 Total Protein 7.1 g/dL N 6.4-8.9 Albumin 4.1 g/dL N 3.2-5.2 Globulin 3.0 g/dL N 2-4 Albumin/Globulin Ratio 1.4 N 1-3 Total Bilirubin 0.60 mg/dL N 0.2-1.0 Alkaline Phosphatase 71 U/L N 34-104 Alt 33 U/L N 7-52 Ast 26 U/L N 13-39 Egfr Non- 111.1 N >60 Egfr 142.9 N >60 39 Lipid Panel 01/29/2015 [facility] Creatine 128 U/L N 10-223 40 - JFM [address] Kinase([place]) [place] [address] [phone] CBC Auto 01/29/2015 [facility] White Blood Count 6.1 N 4.8- 10.[address] 10^3/[place] [address] [phone] Red Blood Count 4.89 10^6/uL N 4.0-5.4 Hemoglobin 14.4 g/dL N 14.0-18.0 Hematocrit 43 % N 42-52 Mean Corpuscular Volume 87 fL N 80-94 Mean Corpuscular Hemoglobin 29 pg N 27-31 Mean Corpuscular HGB Conc 34 g/dL N 31-36 Red Cell Distribution Width 14 % N 10.5-15 Platelet Count 216 10^3/uL N 150-450 Mean Platelet Volume 8 um3 N 7.4-10.4 Abs Neutrophils 3.3 10^3/uL N 1.5-7.7 Abs Lymphocytes 2.0 10^3/uL N 1.0-4.8 Abs Monocytes 0.6 10^3/uL N 0-0.8 Abs Eosinophils 0.1 10^3/uL N 0-0.6 Abs Basophils 0.1 10^3/uL N 0-0.2 Abs Nucleated RBC 0.02 10^3/uL N Granulocyte % 54.3 % N 38-83 Lymphocyte % 33.5 % N 25-47 Monocyte % 9.4 % High 1-9 Eosinophil % 1.6 % N 0-6 Basophil % 1.2 % N 0-2 Nucleated Red Blood Cells % 0.3 N Lipid Profile 02/14/2014 [facility] Triglycerides 124 mg/dL N 41, 42 (Trig/Chol/HDL) [address] [place] [address] [phone] Cholesterol 83 mg/dL N 43 HDL Cholesterol 23.7 mg/dL N 44 LDL Cholesterol 35 mg/dL N 45 Comp Metabolic Panel 02/14/2014 [facility] Sodium 139 mmol/L N 133-[address] [place] [address] [phone] Potassium 3.9 mmol/L N 3.7-5.6 Chloride 105 mmol/L N 101-111 Co2 Carbon Dioxide 28 mmol/L N 22-32 Anion Gap 6 mmol/L N 2-11 Glucose 108 mg/dL High 70-100 Blood Urea Nitrogen 11 mg/dL N 6-24 Creatinine 0.78 mg/dL N 0.67-1.17 BUN/Creatinine Ratio 14.1 N 8-20 Calcium 8.8 mg/dL N 8.6-10.3 Total Protein 7.2 g/dL N 6.4-8.9 Albumin 4.0 g/dL N 3.2-5.2 Globulin 3.2 g/dL N 2-4 Albumin/Globulin Ratio 1.3 N 1-3 Total Bilirubin 0.60 mg/dL N 0.2-1.0 Alkaline Phosphatase 69 U/L N 34-104 Alt 26 U/L N 7-52 Ast 19 U/L N 13-39 Egfr Non- 103.3 N >60 Egfr 132.9 N >60 46 Lipid Panel - 02/14/2014 [facility] Creatine Kinase 137 U/L N 10-[address] [place] [address] [phone] Laboratory test 02/14/2014 [facility] Erythrocyte Sed 24 High 0-20 finding Rate mm/[place] [address] [phone] CBC Auto Diff 02/14/2014 [facility] White Blood 6.0 N 4.8- 10.8 Count 10^3/[place] [address] [phone] Red Blood Count 4.64 10^6/uL N 4.0-5.4 Hemoglobin 13.7 g/dL Low 14.0-18.0 Hematocrit 40 % Low 42-52 Mean Corpuscular Volume 86 fL N 80-94 Mean Corpuscular Hemoglobin 30 pg N 27-31 Mean Corpuscular HGB Conc 35 g/dL N 31-36 Red Cell Distribution Width 13 % N 10.5-15 Platelet Count 216 10^3/uL N 150-450 Mean Platelet Volume 9 um3 N 7.4-10.4 Abs Neutrophils 2.9 10^3/uL N 1.5-7.7 Abs Lymphocytes 2.3 10^3/uL N 1.0-4.8 Abs Monocytes 0.5 10^3/uL N 0-0.8 Abs Eosinophils 0.2 10^3/uL N 0-0.6 Abs Basophils 0 10^3/uL N 0-0.2 Abs Nucleated RBC 0.01 10^3/uL N Granulocyte % 49.2 % N 38-83 Lymphocyte % 38.7 % N 25-47 Monocyte % 8.9 % N 1-9 Eosinophil % 2.7 % N 0-6 Basophil % 0.5 % N 0-2 Nucleated Red Blood Cells % 0.1 N Laboratory test 02/14/2014 [facility] C Reactive 2.11 mg/L N < 5.00 [address] [place] [address] [phone] Wound 02/10/2014 [facility] Wound/Misc (SEE NOTE) 49 Culture/Sensi [address] [place] [address] Stain [phone] Laboratory test 02/10/2014 [facility] Anaerobic (SEE NOTE) [address] [place] [address] [phone] Comp Metabolic 01/24/2014 Sodium 138 mmol/L N 133-145 Panel Potassium 4.4 mmol/L N 3.7-5.6 Chloride 106 mmol/L N 101-111 Co2 Carbon Dioxide 27 mmol/L N 22-32 Anion Gap 5 mmol/L N 2-11 Glucose 87 mg/dL N 70-100 Blood Urea Nitrogen 12 mg/dL N 6-24 Creatinine 1.09 mg/dL N 0.67-1.17 BUN/Creatinine Ratio 11.0 N 8-20 Calcium 8.9 mg/dL N 8.6-10.3 Total Protein 7.5 g/dL N 6.4-8.9 Albumin 4.3 g/dL N 3.2-5.2 Globulin 3.2 g/dL N 2-4 Albumin/Globulin Ratio 1.3 N 1-3 Total Bilirubin 0.50 mg/dL N 0.2-1.0 Alkaline Phosphatase 67 U/L N 34-104 Alt 27 U/L N 7-52 Ast 23 U/L N 13-39 Egfr Non- 70.2 N >60 Egfr 90.3 N >60 51 Laboratory test 01/24/2014 B Type Natriuretic 89 pg/mL N 52 finding Peptide CBC Auto Diff 07/23/2013 [facility] White Blood Count 9.4 10^3/ uL 4.8-10. [address] [place] [address] [phone] Red Blood Count 4.74 10^6/uL 4.0-5.4 Hemoglobin [...] 0-2 Nucleated Red Blood Cells % 0.1 Comp Metabolic Panel 07/23/2013 [facility] Sodium 139 mmol/L 133-[address] [place] [address] [phone] Potassium 3.7 mmol/L 3.5-5.0 Chloride 106 mmol/L [...] Non- 117.5 >60 Egfr 151.1 >60 53 Lipid Panel - 02/15/2013 [facility] Creatine Kinase 145 U/L 0 -200 J[address] [place] [address] [phone] CMP Panel 02/15/2013 [facility] Sodium 141 mmol/L 133-145 [address] [place] [address] [phone] Potassium 4.0 mmol/L 3.5-5.0 Chloride 108 mmol/L [...] Egfr 100.1 >60 54 Lipid Panel 02/15/2013 [facility] Triglycerides 115 mg/dL 40- 200 [address] [place] [address] [phone] Cholesterol 117 mg/dL Less than 200 HDL Cholesterol 29 mg/dL Low 40-60 55 Cholesterol/HDL Ratio 4.0 Average 1-4.44 LDL Cholesterol 65.0 Less Than 100 56 Basic Metabolic Panel 09/27/2012 [facility] Sodium 138 mmol/L 133-145 [address] [place] [address] [phone] Potassium 4.2 mmol/L 3.5-5.0 Chloride 105 mmol/L 101-111 Co2 Carbon Dioxide 28.0 mmol/L 22-32 Anion Gap 5.0 mmol/L 2-11 Glucose 129 mg/dL High 70-100 Blood Urea Nitrogen 10 mg/dL 6-24 Creatinine 0.70 mg/dL 0.50-1.40 BUN/Creatinine Ratio 14.3 8-20 Calcium 8.8 mg/dL 8.1-9.9 Egfr Non- 117.5 >60 Egfr 151.1 >60 57 Laboratory test 07/16/2012 [facility] Vitamin B12 325 pg/mL 180-[address] [place] [address] [phone] Iron & Iron 07/16/2012 [facility] Iron 73 g/dL 45-182 Binding Capacity [address] [place] [address] [phone] Unsaturated Iron Binding 237 g/dL Total Iron Binding Capacity 310 g/dL 250-450 Transferrin 221.6 % Iron Saturation 24 % 15-55 Laboratory test 07/16/2012 [facility] Magnesium 2.4 mg/dL 1.7 -2.[address] [place] [address] [phone] CBC With Manual 07/16/2012 [facility] White Blood 7.4 4.8- 10.8 Diff 101 [facility] Count 10^3/[place] [address] [phone] Red Blood Count 4.69 10^6/uL 4.0-5.4 Hemoglobin [...] 1 % 0-6 RBC Morphology Normal Normal Lipid Profile 07/16/2012 [facility] Triglycerides 101 mg/dL 40-200 (Trig/Chol/HDL) [address] [place] [address] [phone] Cholesterol 119 mg/dL Less than 200 HDL Cholesterol 31 mg/dL Low 40-60 58 Cholesterol/HDL Ratio 3.8 Average 1-4.44 LDL Cholesterol 67.8 mg/dL Less Than 100 59 Comp Metabolic Panel 07/16/2012 [facility] Sodium 142 mmol/L 133-145 [address] [place] [address] [phone] Potassium 3.8 mmol/L 3.5-5.0 Chloride 107 mmol/L [...] Egfr Non- 101.1 >60 Egfr 130.0 >60 60 Lipid Panel - 07/16/2012 [facility] Creatine Kinase 137 U/L 0 -200 JFM [address] [place] [address] [phone] Comp Metabolic 04/18/2012 [facility] Sodium 140 mmol/L 133- 145 Panel [address] [place], [place] [phone] Potassium 3.9 mmol/L 3.5-5.0 Chloride 106 mmol/L [...] >60 Egfr 130.0 >60 62 Lipid Profile 04/18/2012 [facility] Triglycerides 116 mg/dL 40-200 (Trig/Chol/HDL) [address] [place] [address] [phone] Cholesterol 122 mg/dL Less than 200 63 HDL Cholesterol 30 mg/dL Low 40-60 64 Cholesterol/HDL Ratio 4.1 AVERAGE 1-4.44 LDL Cholesterol 68.8 mg/dL Less Than 100 Laboratory test 04/18/2012 [facility] Creatine Kinase 186 U/L 0-200 finding [address] [place] [address] [phone] Laboratory test 04/18/2012 [facility] TSH (Thyroid 0.58 0.34- 5.[address] Stimulating MIU/[place] [address] Horm) [phone] Hemoglobin A1c 6.0 % Less than 6.0 65 CBC No Diff 04/18/2012 [facility] White Blood 6.3 10^3/uL 4.8 -10.[address] [place] [address] [phone] Red Blood Count 4.69 10^6/uL 4.0-5.4 Hemoglobin 13.8 g/dL Low 14.0-18.0 Hematocrit 40 % Low 42-52 Mean Corpuscular Volume 86 fL 80-94 Mean Corpuscular Hemoglobin 29 pg 27-31 Mean Corpuscular HGB Conc 34 g/dL 31-36 Red Cell Distribution Width 14 % 10.5-15 Platelet Count 249 10^3/uL 150-450 Mean Platelet Volume 9 um3 7.4-10.4 Iron & Iron Binding 04/18/2012 [facility] Iron 95 UG/ML 45- 182 Capacity [address] [place] [address] [phone] Unsaturated Iron Binding 209 g/dL Total Iron Binding Capacity 304 g/dL 250-450 Transferrin 216.9 % Iron Saturation 31 % 15-55 Laboratory test 04/18/2012 [facility] Vitamin B12 307 pg/mL 180-914 finding [address] [place] [address] [phone] Folate 7.7 NG/ML 2-16 Comp Metabolic Panel 06/17/2011 [facility] Sodium 141 mmol/L 135-145 [address] [place] [address] [phone] Potassium 3.9 mmol/L 3.5-5.0 Chloride 104 mmol/L 101-111 Co2 (Carbon Dioxide) 28.0 mmol/L 22-32 Anion Gap 9.0 mmol/L 2-11 66 Glucose 95 mg/dL 70-100 BUN 7 mg/dL 6-24 Creatinine 0.9 mg/dL 0.50-1.40 One Over Creatinine 1.11 BUN/Creatinine Ratio 7.8 Low 8-20 Calcium 8.9 mg/dL 8.1-9.9 Total Protein 6.7 GM/DL 6.2-8.1 Albumin 3.9 GM/DL 3.6-5.4 Globulin 2.8 GM/DL 2-4 Albumin/Globulin Ratio 1.4 1-3 Bilirubin Total 0.7 mg/dL 0.4-1.5 67 Alkaline Phosphatase 82 U/L 39-117 Alt (SGPT) 36 U/L 17-63 Ast (Sgot) 31 U/L 12-42 eGFR Non- 88.6 > 60 eGFR 114.0 > 60 68 CBC Auto Diff 06/17/2011 [facility] White Blood 6.9 CUMM 4.8- 10.[address] [place] [address] [phone] Red Cell Count 4.86 CUMM 4.6-6.2 Hemoglobin [...] 0-0.6 Abs Basophils 0 0-0.2 Laboratory test 06/17/2011 [facility] CPK (Creatine 217 U/L High 0-[address] Kinase) [place] [address] [phone] Lipid Profile 06/17/2011 [facility] Triglyceride 93 mg/dL 40- 200 (Trig/Chol/HDL) [address] [place] [address] [phone] Cholesterol 124 mg/dL Less Than 200 69 High Density Lipoprotein 27 mg/dL Low 40-60 70 Cholesterol/HDL Ratio 4.59 AVERAGE 1-4.97 Low Density Lipoprotein 78 mg/dL Less Than 100 71 Lipid Panel - 10/05/2010 [facility] CPK (Creatine 224 U/L High 0-[address] Kinase) [place] [address] [phone] Comp Metabolic 10/05/2010 [facility] Sodium 140 135-[address] mmol/[place] [address] [phone] Potassium 3.5 mmol/L 3.5-5.0 Chloride 106 mmol/L 101-111 Co2 (Carbon Dioxide) 26.0 mmol/L 22-32 Anion Gap 8.0 mmol/L 2-11 72 Glucose 105 mg/dL High 70-100 BUN 10 mg/dL 6-24 Creatinine 0.80 mg/dL 0.50-1.40 One Over Creatinine 1.20 BUN/Creatinine Ratio 12.5 8-20 Calcium 8.5 mg/dL 8.1-9.9 Total Protein 6.9 GM/DL 6.2-8.1 Albumin 4.0 GM/DL 3.6-5.4 Globulin 2.9 GM/DL 2-4 Albumin/Globulin Ratio 1.4 1-3 Bilirubin Total 0.7 mg/dL 0.4-1.5 73 Alkaline Phosphatase 69 U/L 39-117 Alt (SGPT) 32 U/L 17-63 Ast (Sgot) 31 U/L 12-42 eGFR Non- 101.5 > 60 eGFR 130.5 > 60 74 Lipid Profile 10/05/2010 [facility] Triglyceride 97 mg/dL 40- 200 (Trig/Chol/HDL) [address] [place] [address] [phone] Cholesterol 159 mg/dL Less Than 200 75 High Density Lipoprotein 36 mg/dL Low 40-60 76 Cholesterol/HDL Ratio 4.42 AVERAGE 1-4.97 Low Density Lipoprotein 104 mg/dL High Less Than 100 77 CBC With 10/05/2010 [facility] White Blood 6.2 CUMM 4.8-10.8 Electronic Diff [address] [place] [address] [phone] Red Cell Count 4.88 CUMM 4.6-6.2 Hemoglobin [...] Eosinophils 0.1 0-0.6 Abs Basophils 0 0-0.2 Lipid Profile 06/16/2009 [facility] Triglyceride 169 mg/dL 40 -200 (Trig/Chol/HDL) [address] [place] [address] [phone] Cholesterol 147 mg/dL Less Than 200 78 High Density Lipoprotein 31 mg/dL Low 40-60 79 Cholesterol/HDL Ratio 4.74 AVERAGE 1-4.97 Low Density Lipoprotein 82 mg/dL Less Than 100 80 Comp Metabolic Panel 06/16/2009 [facility] Sodium 139 mmol/L 135-[address] [place] [address] [phone] Potassium 4.0 mmol/L 3.5-5.0 Chloride 105 mmol/L 101-111 Co2 (Carbon Dioxide) 29.0 mmol/L 22-32 Anion Gap 5.0 mmol/L 2-11 81 Glucose 89 mg/dL 70-100 82 BUN 10 mg/dL 6-24 Creatinine 0.80 mg/dL 0.50-1.40 One Over Creatinine 1.20 BUN/Creatinine Ratio 12.5 8-20 Calcium 8.9 mg/dL 8.1-9.9 83 Total Protein 7.2 GM/DL 6.2-8.1 Albumin 4.0 GM/DL 3.6-5.4 Globulin 3.2 GM/DL 2-4 Albumin/Globulin Ratio 1.3 1-3 Bilirubin Total 0.9 mg/dL 0.4-1.5 84 Alkaline Phosphatase 72 U/L 39-117 Alt (SGPT) 32 U/L 17-63 Ast (Sgot) 29 U/L 12-42 eGFR Non- 108.8 > 60 eGFR 131.6 > 60 85 Laboratory test 06/16/2009 [facility] CPK (Creatine 174 U/L 0 -[address] Kinase) [place] [address] [phone] CBC With Manual 07/30/2008 [facility] White Blood 6.9 CUMM 4.8-10.[address] [place] [address] [phone] Red Cell Count 5.01 CUMM 4.6-6.2 Hemoglobin [...] Absolute Neutrophil Count 3.9 RBC Morphology NORMAL Laboratory test 07/30/2008 [facility] CPK (Creatine 191 U/L 0 -[address] Kinase) [place] [address] [phone] Lipid Profile 07/30/2008 [facility] Triglyceride 104 mg/dL 40 -200 (Trig/Chol/HDL) [address] [place] [address] [phone] Cholesterol 125 mg/dL Less Than 200 86 High Density Lipoprotein 29 mg/dL Low 40-60 87 Cholesterol/HDL Ratio 4.31 AVERAGE 1-4.97 Low Density Lipoprotein 75 mg/dL Less Than 100 88 Comp Metabolic Panel 07/30/2008 [facility] Sodium 138 mmol/L 135-[address] [place] [address] [phone] Potassium 3.8 mmol/L 3.5-5.0 Chloride 104 mmol/L [...] U/L 17-63 Ast (Sgot) 30 U/L 12-42 Comp Metabolic Panel 10/02/2006 [facility] One Over Creatinine 1.[address] [place] [address] [phone] Anion Gap 4.0 mmol/L 2-11 92 Albumin/Globulin Ratio 1.3 1-3 Albumin 3.9 GM/DL 3.6-5.4 Alkaline Phosphatase 65 U/L 39-117 Alt (SGPT) 29 U/L 17-63 Ast (Sgot) 30 U/L 12-42 BUN 10 mg/dL 6-24 Calcium 8.3 mg/dL Low 8.7-10.2 Chloride 108 mmol/L 101-111 Co2 (Carbon Dioxide) 26.0 mmol/L 22-32 Globulin 3.1 GM/DL 2-4 Glucose 103 mg/dL 70-105 Potassium 3.8 mmol/L 3.5-5.0 Sodium 138 mmol/L 135-145 Bilirubin Total 0.3 mg/dL Low 0.4-1.5 Total Protein 7.0 GM/DL 6.2-8.1 BUN/Creatinine Ratio 10.0 8-20 Creatinine 1.0 mg/dL 0.5-1.4 Lipid Profile 10/02/2006 [facility] Cholesterol/HDL 5.37 High 1-4.97 (Trig/Chol/HDL) [address] [place] [place] [address] [phone] Cholesterol 161 mg/dL Less Than 200 93 Triglyceride 107 mg/dL 40-200 High Density Lipoprotein 30 mg/dL Low 40-60 94 Low Density Lipoprotein 110 mg/dL High Less Than 100 95 Laboratory test 10/02/2006 [facility] CPK (Creatine 234 U/L High 0-[address] Kinase) [place] [address] [phone] Laboratory test 01/20/2006 [facility] CPK (Creatine 178 U/L 0 -[address] Kinase) [place] [address] [phone] Lipid Profile 01/20/2006 [facility] Cholesterol 160 Less Than 96 (Trig/Chol/HDL) [address] mg/dL [address] [place] [address] [phone] Triglyceride 101 mg/dL 40-200 High Density Lipoprotein 28 mg/dL Low 40-60 97 Low Density Lipoprotein 112 mg/dL High Less Than 100 98 Cholesterol/HDL Ratio 5.71 AVERAGE High 1-4.97 Comp Metabolic Panel 01/20/2006 [facility] One Over Creatinine 1.[address] [place] [address] [phone] Anion Gap 7.0 mmol/L 2-11 99 Albumin/Globulin Ratio 1.1 1-3 Albumin 3.9 GM/DL 3.6-5.4 Alkaline Phosphatase 71 U/L 39-117 Alt (SGPT) 33 U/L 17-63 Ast (Sgot) 28 U/L 12-42 BUN 7 mg/dL 6-24 Calcium 9.0 mg/dL 8.7-10.2 Chloride 106 mmol/L 101-111 Co2 (Carbon Dioxide) 28.0 mmol/L 22-32 Globulin 3.4 GM/DL 2-4 Glucose 99 mg/dL 70-105 Potassium 4.0 mmol/L 3.5-5.0 Sodium 141 mmol/L 135-145 Bilirubin Total 0.8 mg/dL 0.4-1.5 Total Protein 7.3 GM/DL 6.2-8.1 BUN/Creatinine Ratio 7.8 Low 8-20 Creatinine 0.9 mg/dL 0.5-1.4 1 Desirable: <150 Borderline High: 150-199 High: 200-499 Very High: >500 2 Desirable: <200 Borderline High: 200-239 High: >239 3 Low: <40 Desirable: 40-60 High: >60 4 Desirable: <100 Near Optimal: 100-129 Borderline High: 130-159 High: 160-189 Very High: >189 5 Because ethnic data is not always readily [...] 15-29 5 Kidney failure <15 (or dialysis) 6 Therapeutic target for the treatment of diabetes mellitus patients is <7% HBA1C, and in selective patients <6.0%. Please refer to [employer] diabetic care guidelines for further information. 7 FASTING 8 Because ethnic data is [...] High: >189 13 FASTING 14 FASTING 15 >100 to <200 pg/mL: likely compensated congestive heart failure (CHF) 200 to 400 pg/mL: likely moderate CHF >400 pg/mL: likely moderate to severe CHF 16 Desirable: <150 Borderline High: 150-199 High: 200-499 Very High: >500 17 Desirable: <200 Borderline High: 200-239 High: >239 18 Low: <40 Desirable: 40-60 High: >60 19 Desirable: <100 Near Optimal: 100-129 Borderline High: 130-159 High: 160-189 Very High: >189 20 Because ethnic data is not always readily [...] 15-29 5 Kidney failure <15 (or dialysis) 21 [facility] Severe Sepsis and Septic Shock Management Bundle Measure requires all lactic acids initially measuring >2.0 mmol/L be repeated. 22 Because ethnic data is not always readily [...] 15-29 5 Kidney failure <15 (or dialysis) 23 Acute inflammation: >10.00 24 Therapeutic target for the treatment of diabetes Mellitus patients is <7% HBA1C, and in selective patients <6.0%.Please refer to [employer] Diabetic care guidelines for further information. 25 SEE RESULT BELOW Name: MARTY MEAD : [address]: Madhav Savage MD Acct: [id number] Unit: [id number] AGE: 56 Location: WOUND Re10/21/16 SEX: M Status: REG REF SPEC: [id number] FILIBERTO: 10/21/16-[address]: Madhav Savage MD REQ: [id number] RECD: 10/21/16-130 STATUS: GLENDA SIMENTAL DR: Jarocho Lagunas MD [...] performed at Main Lab DEPARTMENT OF PATHOLOGY, [address] [place] [address] Fidencio Smith M.D. Director [facility] # [id number] 26 PT IS FASTING 27 PT IS [...] IS FASTING 34 PT IS FASTING 35 Desirable <150 Borderline high 150-199 High 200-499 Very High >500 36 Desirable <200 Borderline high 200-239 High >239 37 Low <40 Desirable: 40-60 High: >60 38 Desirable: <100 mg/dL Near Optimal: 100-129 mg/dL Borderline High: 130-159 mg/dL High: 160-189 mg/dL Very High: >189 mg/dL 39 Because ethnic data is not always readily [...] 15-29 5 Kidney failure <15 (or dialysis) 40 PT IS FASTING 41 FASTING 42 Desirable <150 Borderline high 150-199 High 200-499 Very High >500 43 Desirable <200 Borderline high 200-239 High >239 44 Low <40 Desirable: 40-60 High: >60 45 Desirable <100 Near Optimal 100-129 Borderline high 130-159 High 160-189 Very High >189 46 Because ethnic data is not always readily [...] 15-29 5 Kidney failure <15 (or dialysis) 47 FASTING 48 Acute inflammation: >10.00 49 RUN DATE: 02/17/14 [facility] LAB LIVE PAGE 1 RUN TIME: 0559 [address] [place], [place] [address] Specimen Inquiry Name: MARTY MEAD : [address]: Letty Avelar MD Acct: [id number] Unit: [id number] AGE: 53 Location: WOUND Re02/10/14 SEX: M Status: REG RCR SPEC: [id number] FILIBERTO: 02/10/14-[address] [facility] [address]: Letty Avelar MD REQ: [id number] RECD: 02/10/14 STATUS: DWAINE SIMENTAL DR: Jarocho Whyte MD [...] performed at Main Lab DEPARTMENT OF PATHOLOGY, [facility] [address] [place], [place] [address] Fidencio Smith M.D. Director [facility] # [id number] RUN DATE: 02/17/14 [facility] LAB LIVE PAGE 2 RUN TIME: [address] [place] [address] Specimen Inquiry Patient: MARTY MEAD [id number] (Continued) Specimen: [id number] Collected: 02/10/14 Received: 02/10/14-1151 (Continued) Procedure Result Verified Site Wound/Misc Culture Final (continued) 02/17/14- 1330 1. PSEUDOMONAS AERUGINOSA M.I.C. RX --------- ------ [...] performed at Main Lab DEPARTMENT OF PATHOLOGY, [facility] [address] [place] [address] Fidencio Smith M.D. Director [facility] # [id number] RUN DATE: 02/17/14 [facility] LAB LIVE PAGE 3 RUN TIME: 1330 [facility] Progression [place], [place] [address] Specimen Inquiry Patient: MARTY MEAD [id number] (Continued) Specimen: [id number] Collected: 02/10/14-1034 Received: 02/10/14-1150 (Continued) Procedure Result Verified Site Wound/Misc Culture Final (continued) * These antibiotics are not available in the [facility] Formulary Contact the Microbiology Department for any additional antibiotic reporting. Contact the Microbiology Department for any additional antibiotic reporting. END OF REPORT * ML=Testing performed at Main Lab DEPARTMENT OF PATHOLOGY, [address] [place] [address] Fidencio Smith M.D. Director [facility] # [id number] RUN DATE: 02/14/14 [facility] LAB LIVE PAGE 1 RUN TIME: 1004 [address] [place], [place] [address] Specimen Inquiry Name: MARTY MEAD : [address]: Letty Avelar MD Acct: [id number] Unit: [id number] AGE: 53 Location: WOUND Re02/10/14 SEX: M Status: REG RCR SPEC: [id number] FILIBERTO: 02/10/14-[address] [facility] [address]: Letty Avelar MD REQ: [id number] RECD: 02/10/14 STATUS: KATRIN SIMENTAL DR: Jarocho Whyte MD _ SOURCE: [...] performed at Main Lab DEPARTMENT OF PATHOLOGY, [address] [place] [address] Fidencio Smith M.D. Director [facility] # [id number] 51 Because ethnic data is not always readily [...] 15-29 5 Kidney failure <15 (or dialysis) 52 >100 to <200 pg/mL: likely compensated congestive heart failure (CHF) 200 to 400 pg/mL: likely moderate CHF >400 pg/mL: likely moderate to severe CHF [facility] 53 Because ethnic data is not always [...] 5 Kidney failure <15 (or dialysis) 58 HDL Interpretation: Undesirable: High Risk: Less than 40 MG/DL Desirable: Low Risk: Greater than 60 MG/DL 59 LDL Interpretation: Low Risk Optimal Level: LDL Less than 100 MG/DL Near or Above Optimal: LDL 100-129 MG/DL Borderline High Risk: LDL 130-159 MG/DL High Risk: LDL 160-189 MG/DL Very High Risk: LDL Greater than 189 MG/DL 60 Because ethnic data is not always readily [...] 15-29 5 Kidney failure <15 (or dialysis) 61 A metabolite of Naproxen, O-desmethylnaproxen, has been shown to interfere with the [place] method for measuring total bilirubin. Samples from [...] and in selective patients <6.0%.Please refer to [place] [employer] Diabetic care guidelines for further information. 66 Anion gap measurement may be of limited value in the presence of any alkalosis, especially in a combined acid base disorder. . 67 A metabolite of Naproxen, O-desmethylnaproxen, has been shown to interfere with the [place] method for measuring total bilirubin. Samples from patients who have taken Naproxen have shown spurious elevation in total bilirubin levels. 68 Because ethnic data is not always readily [...] 15-29 5 Kidney failure <15 (or dialysis) 69 CHOLESTEROL INTERPRETATION: Desirable: Less than 200 MG/DL Borderline-High Risk: 200-239 MG/DL High-Risk: 240 MG/DL and over 70 HDL INTERPRETATION: Undesirable: High Risk: Less than 40 MG/DL Desirable: Low Risk: Greater than 60 MG/DL 71 LDL INTERPRETATION: Low Risk Optimal Level: LDL Less than 100 MG/DL Near or Above Optimal: LDL 100-129 MG/DL Borderline High Risk: LDL 130-159 MG/DL High Risk: LDL 160-189 MG/DL Very High Risk: LDL Greater than 189 MG/DL 72 Anion gap measurement may be of limited value in the presence of any alkalosis, especially in a combined acid base disorder. . 73 A metabolite of Naproxen, O-desmethylnaproxen, has been shown to interfere with the Jendrassik-[place] method for measuring total bilirubin. Samples from patients who have taken Naproxen have shown spurious elevation in total bilirubin levels. 74 Because ethnic data is not always readily [...] 15-29 5 Kidney failure <15 (or dialysis) 75 CHOLESTEROL INTERPRETATION: Desirable: Less than 200 MG/DL Borderline-High Risk: 200-239 MG/DL High-Risk: 240 MG/DL and over 76 HDL INTERPRETATION: Undesirable: High Risk: Less than 40 MG/DL Desirable: Low Risk: Greater than 60 MG/DL 77 LDL INTERPRETATION: Low Risk Optimal Level: LDL Less than 100 MG/DL Near or Above Optimal: LDL 100-129 MG/DL Borderline High Risk: LDL 130-159 MG/DL High Risk: LDL 160-189 MG/DL Very High Risk: LDL Greater than 189 MG/DL 78 CHOLESTEROL INTERPRETATION: Desirable: Less than 200 MG/DL Borderline-High Risk: 200-239 MG/DL High-Risk: 240 MG/DL and over 79 HDL INTERPRETATION: Undesirable: High Risk: Less than 40 MG/DL Desirable: Low Risk: Greater than 60 MG/DL 80 LDL INTERPRETATION: Low Risk Optimal Level: LDL Less than 100 MG/DL Near or Above Optimal: LDL 100-129 MG/DL Borderline High Risk: LDL 130-159 MG/DL High Risk: LDL 160-189 MG/DL Very High Risk: LDL Greater than 189 MG/DL 81 Anion gap measurement may be of limited value in the presence of any alkalosis, especially in a combined acid base disorder. . 82 Note change in reference range as of 02/28/08. The change was based on recommendations from the [place] [employer]. 83 Please note change in reference range effective 07 . 84 A metabolite of Naproxen, O-desmethylnaproxen, has been shown to interfere with the Jendrassik-[place] method for measuring total bilirubin. Samples from patients who have taken Naproxen have shown spurious elevation in total bilirubin levels. 85 Because ethnic data is not always readily [...] 15-29 5 Kidney failure <15 (or dialysis) 86 CHOLESTEROL INTERPRETATION: Desirable: Less than 200 [...] change was based on recommendations from the [place] [employer]. 91 Please note change in reference range effective 07 . 92 Anion gap measurement may be of limited value in the presence of any alkalosis, especially in a combined acid base disorder. . 93 Classification: Desirable . 94 Classification: Low . 95 CALCULATED LDL APPROXIMATES THE VALUE OF A DIRECT LDL MEASUREMENT. Classification: Near or above optimal . 96 Classification: Desirable . 97 Classification: Low . 98 CALCULATED LDL APPROXIMATES THE VALUE OF A DIRECT LDL MEASUREMENT. Classification: Near or above optimal . 99 Anion gap measurement may be of limited value in the presence of any alkalosis, especially in a combined acid base disorder. . Procedures Date Code Description Status 06/18/2018 52309 Holter Monitor Review (24 hr)dr review & interp only Completed 06/12/2018 81611 ECG Monitor/Recording W/Visual Superimposition Scanning Completed 05/30/2018 55679 ECHO Stress Test Incl Perf Contiuous ekg Monitoring Completed W/Phys Superv 02/28/2018 59251 Polysomnography Sleep Staging 4+ Parameters W/Cpap Completed 02/08/2018 74599 EKG Tracing & Interpretation Completed 01/18/2018 15463 EKG Tracing & Interpretation Completed 12/28/2017 96790 Holter Monitor Review (24 hr) review & interp only Completed 12/22/2017 53782 EKG Tracing & Interpretation Completed 11/28/2017 23786 ECHO Transthoracic, Real-Time 2D With Doppler And Color Completed Flow 11/28/2017 41536 ECHO Transthoracic, Real-Time 2D With Doppler And Color Completed Flow 11/20/2017 69213 Holter Monitor Review (24 hr) review & interp only Completed 11/17/2017 15929 ECG Monitor/Recording W/Visual Superimposition Scanning Completed 05/16/2017 94996 ECHO Transthoracic, Real-Time 2D With Doppler And Color Completed Flow 05/16/2017 17404 ECHO Transthoracic, Real-Time 2D With Doppler And Color Completed Flow 04/28/2017 60355 Treadmill Interp/Report Only Completed 04/28/2017 94149 Stress Test Supervsn W/Out I/R Completed 04/25/2017 55476 Holter Monitor Review (24 hr)dr review & interp only Completed 04/24/2017 80977 ECG Monitor/Recording W/Visual Superimposition Scanning Completed 04/04/2017 43412 EKG Tracing & Interpretation Completed 12/25/2016 64306 EKG, Interpretation Only Completed 12/15/2016 57905 EKG Tracing & Interpretation Completed 10/21/2016 07031 Biopsy Skin Lesion Single Completed 08/25/2016 99740 EKG Tracing & Interpretation Completed 02/10/2016 18218 EKG Tracing & Interpretation Completed 10/08/2015 96293491 Colonoscopy Completed 09/29/2014 76745 EKG Tracing & Interpretation Completed 01/13/2014 21490 EKG Tracing & Interpretation Completed 09/03/2013 63314 EKG Tracing & Interpretation Completed 07/30/2013 28442 EKG Tracing & Interpretation Completed 06/25/2013 92605 ECHO Transthoracic, Real-Time 2D With Doppler And Color Completed Flow 05/15/2013 98485 EKG Tracing & Interpretation Completed 04/30/2012 54600 Holter Monitoring 24 HR New Completed 04/06/2012 89991 EKG Tracing & Interpretation Completed 06/15/2011 30709 EKG Tracing & Interpretation Completed 07/28/2009 37050 Treadmill Interp/Report Only Completed 07/28/2009 81317 Stress Test Supervsn W/Out I/R Completed 06/15/2009 61477 ECHO Stress Test Incl Perf Contiuous ekg Monitoring Completed W/Phys Superv 05/04/2009 98984 EKG Tracing & Interpretation Completed 08/20/2008 93659 Color Doppler Completed 08/20/2008 78530 Pulse Doppler & Continuous Wave Completed 08/20/2008 13701 Echocardiogram Completed 08/20/2008 62624 ECHO Transthoracic, Real-Time 2D With Doppler And Color Completed Flow 07/29/2008 84487 EKG Tracing & Interpretation Completed 07/29/2008 31112 EKG Tracing & Interpretation Completed 01/02/2008 30854 EKG Tracing & Interpretation Completed 01/19/2007 90715 EKG Tracing & Interpretation Completed 01/19/2007 57510 EKG Tracing & Interpretation Completed 06/26/2006 03330 EKG Tracing & Interpretation Completed 06/26/2006 93172 EKG Tracing & Interpretation Completed 04/12/2006 21192 Holter Monitor Interpretation Completed 04/05/2006 64311 EKG Tracing & Interpretation Completed 11/24/2005 53995 EKG Tracing & Interpretation Completed 06/13/2005 14223 EKG Tracing & Interpretation Completed 05/16/2005 38048 Selective Coronary Angiography Completed 05/16/2005 55557 S/I/R Inj Proc Vent &/Or Atrial Completed 05/16/2005 16848 Coronary Angiography Completed 05/16/2005 28541 Inj Proc LFT Vent/LFT Atrl Angio Completed 05/16/2005 76159 Left Heart Catheterization Completed 05/10/2005 69642 ECHO/Stress Completed 05/10/2005 27009 Stress Test Completed 05/10/2005 36881 IV Infusion For DX/Upt To 1 HR. Completed 05/10/2005 85402 Intro. 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) Z68.42 Body mass index (BMI) 45.0-49.9, adult Office Visit 02/26/2018 10:00a [facility] Melissa G47.33 Obstructive sleep [facility] MD Db apnea (adult) [place] (pediatric) R53.83 Other fatigue E66.01 Morbid (severe) obesity due to excess calories Z68.42 Body mass index (BMI) 45.0-49.9, adult Office Visit 02/08/2018 Joel Covarrubias I49.3 Ventricular 10:40a [facility] Judith Ramesh premature [place] depolarization R94.31 Abnormal electrocardiogram [ECG] [EKG] I25.10 Athscl heart disease of [place] coronary artery w/o ang pctrs E78.00 Pure hypercholesterolemia, unspecified I10 Essential (primary) hypertension G47.33 Obstructive sleep apnea (adult) (pediatric) E66.9 Obesity, unspecified I44.0 Atrioventricular block, first degree Office Visit 12/22/2017 Joel Rush R94.31 Abnormal 10:30a Cardiology Of Tammy Echeverria electrocardiogram [place] [ECG] [EKG] I10 Essential (primary) hypertension I49.3 Ventricular premature depolarization Office Visit 04/04/2017 10:40a [facility] Rick Covarrubias I10 Essential (primary) Judith Ramesh hypertension I49.3 Ventricular premature depolarization R07.9 Chest pain, unspecified R06.00 Dyspnea, unspecified Office Visit 01/05/2017 2:40p [facility] Aleksander Alvarez L03.115 Cellulitis of [place] Whyte M.D. 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 hypercholesterolemia I10 Essential (primary) hypertension R00.2 Palpitations R94.31 Abnormal electrocardiogram [ECG] [EKG] Office Visit 08/25/2016 10:20a [facility] Rick Covarrubias E66.9 Obesity , Judith Ramesh unspecified I10 Essential (primary) hypertension E78.00 Pure hypercholesterolemia, unspecified Office Visit 03/02/2016 11:30a [facility] Carol Nolasco E66.9 Obesity , [place] unspecified I10 Essential (primary) hypertension E78.0 Pure hypercholesterolemia Office Visit 02/10/2016 11:00a [facility] Rick Moore Essential (primary) Judith Ramesh hypertension E78.0 Pure hypercholesterolemia E66.9 Obesity, unspecified Office 10/09/2014 [place] Nurse Visit 401.9 Hypertension Unspec Visit 11:00a Cardiology cc Office 09/29/2014 [place] Rick Covarrubias 272.0 Hypercholesterolemia Pure Visit 2:40p Cardiology Judith Ramesh 278.00 Obesity Unspec 401.9 Hypertension Unspec Office Visit 03/06/2014 [facility] Aleksander Alvarez 682.6 Cellulitis & 3:40p For Infectious Judith Whyte Abscess Leg Except Diseases Foot Office Visit 02/03/2014 [facility] Aleksander Alvarez 707.13 Ulcer Of Ankle 3:20p For Infectious Judith Whyte Diseases Office Visit 01/13/2014 [place] Rick Covarrubias 401.1 Hypertension 2:20p Cardiology Katty Ramesh M.D. 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 Benign 785.1 Palpitations 278.01 Obesity Morbid 424.0 Mitral Valve Disorder Office Visit 07/17/2013 10:00a [place] Nurse Visit cc 401.1 Hypertension Cardiology Benign Office Visit 05/15/2013 10:00a [place] Rick Covarrubias 278.01 Obesity Morbid Cardiology Judith Ramesh 785.1 Palpitations 414.01 Coronary Atherosclerosis [place] 401.1 Hypertension Benign Office Visit 04/06/2012 1:00p [facility] Rick Covarrubias 278.01 Obesity Morbid Judith Ramesh 414.01 Coronary Atherosclerosis [place] 401.1 Hypertension Benign 272.0 Hypercholesterolemia Pure Office Visit 06/15/2011 [place] Rick Covarrubias 414.01 Coronary 9:20a Cardiology Judith Ramesh Atherosclerosis [place] 278.01 Obesity Morbid 401.1 Hypertension Benign 272.0 Hypercholesterolemia Pure Office Visit 05/04/2009 10:10a [facility] Rick Covarrubias 278.01 Obesity Morbid Judith Ramesh 401.1 Hypertension Benign 414.01 Coronary Atherosclerosis [place] 424.0 Mitral Valve Disorder 786.59 Pain Chest Other Office Visit 07/29/2008 11:00a [facility] Rick Covarrubias 401.1 Hypertension Judith Ramesh Benign 414.01 Coronary Atherosclerosis [place] 278.01 Obesity Morbid 272.0 Hypercholesterolemia Pure 785.2 Murmur Cardiac Undiagnosed Office Visit 01/02/2008 2:40p [facility] Rick Covarrubias 401.1 Hypertension Judith Ramesh Benign 414.01 Coronary Atherosclerosis [place] 272.0 Hypercholesterolemia Pure Office 01/19/2007 [place] Rick FFrida 272.0 Hypercholesterolemia Pure Visit 10:20a Cardiology Judith Ramesh 414.01 Coronary Atherosclerosis [place] 401.0 Hypertension Malignant Office Visit 06/26/2006 [facility] Covarrubias 414.01 Coronary 2:40p Cardiology Judith Ramesh Atherosclerosis [place] 272.0 Hypercholesterolemia Pure Office Visit 06/08/2006 Beatriz Covarrubias 414.01 Coronary 9:20a Cardiology Judith Ramesh Atherosclerosis [place] 401.0 Hypertension Malignant Office Visit 05/31/2006 Beatriz Covarrubias 414.01 Coronary 9:40a Cardiology Judith Ramesh Atherosclerosis [place] 401.1 Hypertension Benign 272.0 Hypercholesterolemia Pure Office Visit 05/18/2006 Beat[facility] Covarrubais 401.1 Hypertension Benign 8:00a Domingo Ramesh M.D. Office Visit 04/05/2006 [facility] Cabrera FFrida 401.0 Hypertension 9:40a Cardiology Judith Ramesh Malignant Office Visit 11/24/2005 Beat[facility] Covarrubias 414.01 Coronary 9:40a Domingo Ramesh M.D. Atherosclerosis [place] 401.1 Hypertension Benign 272.0 Hypercholesterolemia Pure 278.01 Obesity Morbid Office Visit 07/14/2005 2:00p [facility] Rick Covarrubias 786.50 Pain Chest Judith Ramesh Unspec 272.0 Hypercholesterolemia Pure 401.0 Hypertension Malignant Office Visit 06/13/2005 10:45a [facility] Rick FFrida 401.0 Hypertension Judith Ramesh Malignant 278.01 Obesity Morbid Office Visit 05/10/2005 3:20p [facility] Rick Covarrubias 785.1 Palpitations Judith Ramesh 414.01 Coronary Atherosclerosis [place] 427.69 Premature Beats Other Plan of Treatment 10/03/2018 - Aleksander Whyte M.D.L97.319 Non-pressure chronic ulcer of right ankle with unsp severityComments:does not appear infected, I think the presence of bacteria in the wound is colonization and does notrequire further antibiotics. I looked at his xray from May, the fixation screws don't look to be backing out or near the surface. 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 We discussed options for that which he will consider.I87.2 Venous insufficiency ( chronic) (peripheral)
[2018-10-09 10:04] LABS: Hematocrit 41 % (36-46); Hemoglobin 13.9 g/dL (14.0-18.0); Mean Corpuscular HGB Conc 34 g/dL (31-36); Mean Corpuscular Hemoglobin 28 pg (27-31); Mean Corpuscular Volume 84 fL (80-94); Platelet Count 184 10^3/uL (150-450); Red Blood Count 4.93 10^6 /uL (4.18-5.48); Red Cell Distribution Width 14 % (10.5-15); White Blood Count 4.3 10^3/uL (3.5-10.8)
[2018-10-09 10:05] LABS: ABS Basophils 0 10^3/ul (0-0.2); ABS Eosinophils 0 10^3/ul (0-0.6); ABS Lymphocytes 0.8 10^3/ul (1.0-4.8); ABS Monocytes 0.5 10^3/ul (0-0.8); ABS Nucleated RBC 0 10^3/ul; Eosinophil % 0.2 %; Lymphocyte % 18.1 %; Nucleated Red Blood Cells % 0
[2018-10-09 10:23] LABS: Albumin/Globulin Ratio 1.3 (1-3); BUN/Creatinine Ratio 13.6 (8-20); Calcium 8.7 mg/dL (8.6-10.3); EGFR African American 89.1 (>60); EGFR Non-African American 73.7 (>60); Globulin 3.2 g/dL (2-4); Potassium 3.7 mmol/L (3.5-5.0); Total Bilirubin 0.6 mg/dL (0.2-1.0); Total Protein 7.2 g/dL (6.4-8.9)
[2018-10-09 11:14] LABS: Urine Appearance Cloudy; Urine Bilirubin Negative (Negative); Urine Blood Negative (Negative); Urine Color Amber; Urine Glucose Negative (Negative); Urine Ketones Negative (Negative); Urine Nitrite Negative (Negative); Urine Protein Negative (Negative); Urine Specific Gravity 1.027 (1.010-1.030); Urine Urobilinogen Negative (Negative)
[2018-10-09 19:57] LABS: Erythrocyte Sed Rate 17 mm/Hr (0-20)
== END 2018-10-09 13:39 | disposition home or self-care (01) ==
LOC: ED 09:25
DX: S81.811A Laceration without foreign body, right lower leg, initial encounter (principal); I10 Essential (primary) hypertension; G47.30 Sleep apnea, unspecified; X58.XXXA Exposure to other specified factors, initial encounter; Y92.9 Unspecified place or not applicable; Z88.2 Allergy status to sulfonamides; K21.9 Gastro-esophageal reflux disease without esophagitis
CPT/HCPCS: 36415; 80053; 81003; 83605; 85025; 85652; 87040; 87070; 87077; 87186; 87205; 87640; 87641; 99282

== ENCOUNTER 2020-11-30 18:16 | Inpatient (IN) ==
[2020-11-30] MEDS ORDERED: Lactated Ringers 1000 ml BAG 1,000 ML IV ONE ×2 (20:42→23:59)
[2020-11-30] MEDS: Albuterol/Ipratropium NEB.SOL (2.5/0.5 MG) 3 ML NEB.SOLN INH SCH ×3 (21:09→22:35)
[2020-11-30 21:30] LABS: Influenza A Molecular Negative (Negative); Influenza B Molecular Negative (Negative)
[2020-11-30 21:33] LABS: ABS Lymphocytes 0.5 10^3/ul (1.0-4.8); ABS Monocytes 0.8 10^3/ul (0-0.8); ABS Neutrophils 11.7 10^3/ul (1.5-7.7); Hematocrit 40 % (42-52); Hemoglobin 13.3 g/dL (14.0-18.0); Lymphocyte % 3.9 %; Mean Corpuscular HGB Conc 33 g/dL (31-36); Mean Corpuscular Hemoglobin 28 pg (27-31); Mean Corpuscular Volume 85 fL (80-94); Mean Platelet Volume 8.4 fL (7.4-10.4); Platelet Count 213 10^3/uL (150-450); Red Blood Count 4.69 10^6 /uL (4.18-5.48); Red Cell Distribution Width 13 % (10-15)
[2020-11-30 21:39] LABS: INR 1.42 (0.82-1.09)
[2020-11-30 21:51] LABS: Calcium 8.6 mg/dL (8.6-10.3); EGFR African American 87.6 (>60); EGFR Non-African American 72.4 (>60); Globulin 3.9 g/dL (2-4); Indirect Bilirubin 0.5 mg/dL (0.3-1.0); Magnesium 1.6 mg/dL (1.9-2.7); Potassium 3.7 mmol/L (3.5-5.0); Total Bilirubin 0.7 mg/dL (0.2-1.0); Total Protein 7.9 g/dL (6.4-8.9)
[2020-11-30 21:52] LABS: Troponin I 0.01 ng/mL (<0.03)
[2020-11-30] MEDS ORDERED: Iohexol 350 (CONTRAST) 500 ML MDV IV ONE (21:56)
[2020-11-30 22:55] LABS: Urine Appearance Cloudy; Urine Bacteria Absent (Absent); Urine Bilirubin Negative (Negative); Urine Blood Negative (Negative); Urine Color Yellow; Urine Glucose Negative (Negative); Urine Ketones Negative (Negative); Urine Nitrite Negative (Negative); Urine Protein Negative (Negative); Urine Red Blood Cell Absent (Absent); Urine Specific Gravity 1.008 (1.002-1.030); Urine Urobilinogen Negative (Negative); Urine White Blood Cell Trace(0-5/hpf) (Absent)
[2020-12-01] MEDS ORDERED: Vancomycin 1,000 MG in NS 0.9% 250 ml 250 ML IVPB ONE ×2 (01:15→09:00)
[2020-12-01] MEDS ORDERED: Piperacillin/Tazobac ADVAN 3.375 GM in NS 0.9% 100 ml BAG 100 ML IV ONE ×2 (01:16→09:00)
[2020-12-01 02:06] LABS: C Reactive Protein 58.84 mg/L (<8.01)
[2020-12-01] MEDS ORDERED: Magnesium Sulf 4 GM/100 ML IV 4,000 MG/100 ML BAG IVPB ONE (02:51)
[2020-12-01] MEDS ORDERED: Vancomycin per Pharmacy 1 EA NOTE FOLLOW UP SCH (03:00)
[2020-12-01] MEDS ORDERED: Enoxaparin 40 MG/0.4 ML SYR SUBCUT SCH (03:00)
[2020-12-01] MEDS ORDERED: Zosyn per Pharmacy NOTE FOLLOW UP SCH (03:00)
[2020-12-01] MEDS ORDERED: Lactated Ringers 1000 ml BAG 1,000 ML IV SCH (04:00)
[2020-12-01 06:52] LABS: ABS Lymphocytes 0.8 10^3/ul (1.0-4.8); ABS Monocytes 1.2 10^3/ul (0-0.8); ABS Neutrophils 13.5 10^3/ul (1.5-7.7); Hematocrit 35 % (42-52); Hemoglobin 11.8 g/dL (14.0-18.0); Lymphocyte % 4.9 %; Mean Corpuscular HGB Conc 34 g/dL (31-36); Mean Corpuscular Hemoglobin 29 pg (27-31); Mean Corpuscular Volume 85 fL (80-94); Mean Platelet Volume 8.5 fL (7.4-10.4); Platelet Count 164 10^3/uL (150-450); Red Cell Distribution Width 14 % (10-15); White Blood Count 15.5 10^3/uL (3.5-10.8)
[2020-12-01 06:57] LABS: Calcium 8.1 mg/dL (8.6-10.3); EGFR African American 90.6 (>60); EGFR Non-African American 74.9 (>60); Potassium 3.5 mmol/L (3.5-5.0)
[2020-12-01] MEDS ORDERED: CMC:Epleronone 25 mg TAB (NF) PO SCH (09:00)
[2020-12-01] MEDS ORDERED: Cefepime 2 GM in Dextrose 2 GM/50 ML BAG IV SCH (09:00)
[2020-12-01] MEDS ORDERED: Lactated Ringers 1000 ml BAG 1,000 ML IV ONE (09:49)
[2020-12-01] MEDS ORDERED: Meropenem 1 GM PREMIX(*) 1 GM/50 ML BAG IV SCH (10:00)
[2020-12-01] MEDS: Vancomycin 1,250 MG in NS 0.9% 250 ml 250 ML IVPB SCH (13:41)
[2020-12-01] MEDS ORDERED: NS 0.9% 1000 ml BAG 1,000 ML IV SCH (14:15)
[2020-12-01] MEDS ORDERED: Perflutren Lipid Microsphere 3 ML VIAL ONE (15:01)
[2020-12-02] MEDS: Vancomycin 1,250 MG in NS 0.9% 250 ml 250 ML IVPB SCH (02:47)
[2020-12-02] MEDS: Nystatin TOP POWDER 15 GM BTL TOPICAL SCH ×4 (04:36→21:43)
[2020-12-02 06:10] LABS: Hematocrit 34 % (42-52); Hemoglobin 11.5 g/dL (14.0-18.0); Mean Corpuscular HGB Conc 34 g/dL (31-36); Mean Corpuscular Hemoglobin 29 pg (27-31); Mean Corpuscular Volume 85 fL (80-94); Mean Platelet Volume 8.4 fL (7.4-10.4); Platelet Count 140 10^3/uL (150-450); Red Blood Count 3.97 10^6 /uL (4.18-5.48); Red Cell Distribution Width 14 % (10-15); White Blood Count 8.2 10^3/uL (3.5-10.8)
[2020-12-02 06:30] LABS: Calcium 7.9 mg/dL (8.6-10.3); EGFR African American 92.7 (>60); EGFR Non-African American 76.6 (>60); Magnesium 2.4 mg/dL (1.9-2.7); Potassium 3.6 mmol/L (3.5-5.0)
[2020-12-02] MEDS: cefTRIAXone 2 GM ADDV.VIAL 2 GM in NS 0.9% 100 ml BAG 100 ML IV SCH (11:55)
[2020-12-02] MEDS ORDERED: Vancomycin Trough Check NOTE FOLLOW UP ONE (12:30)
[2020-12-03] MEDS: Nystatin TOP POWDER 15 GM BTL TOPICAL SCH ×2 (07:39→14:49)
[2020-12-03] MEDS ORDERED: fentaNYL 100 mcg/2 ml 50 MCG/ML VIAL ONE (08:03)
[2020-12-03] MEDS ORDERED: Flumazenil 0.5 mg/5 ml 0.1 MG/ML 5 ml VIAL ONE (08:03)
[2020-12-03] MEDS ORDERED: Naloxone 0.4 mg VIAL 0.4 mg/ml 1 ml VIAL ONE (08:03)
[2020-12-03] MEDS ORDERED: Midazolam 5 mg/5 ml VIAL 1 mg/ml 5 ml VIAL (5 mg) ONE (08:03)
[2020-12-03] MEDS ORDERED: CMCS - Epleronone 25 mg TAB (NF) PO SCH (09:00)
[2020-12-03] MEDS: cefTRIAXone 2 GM ADDV.VIAL 2 GM in NS 0.9% 100 ml BAG 100 ML IV SCH (10:32)
[2020-12-03 14:25] VITALS: BP 149/83
== END 2020-12-03 15:25 | disposition home or self-care (01) | DRG 720 ==
LOC: ED 18:16 → MED 12-01 02:54
PROVIDERS: ADMIT Internal Medicine; ATTEND Internal Medicine

== ENCOUNTER 2023-05-18 13:47 | Inpatient (IN) ==
[2023-05-18 15:50] LABS: Hematocrit 43.2 % (38-53); Hemoglobin 14.8 g/dL (13.2-16.3); Mean Corpuscular Hemoglobin 29.1 pg (27-33); Mean Corpuscular Hgb Conc 34.1 g/dL (31-36); Mean Corpuscular Volume 85.3 fL (80-97); Mean Platelet Volume 8.7 fL (7.5-11.2); Platelet Count 228 10^3/uL (150-450); Red Blood Count 5.07 10^6/uL (4.06-5.63); Red Cell Distribution Width 12.9 % (12-17); White Blood Count 19.6 10^3/uL (3.6-10.2)
[2023-05-18 15:56] LABS: Albumin 4.5 g/dL (3.2-5.2); Albumin/Globulin Ratio 1.2 (1-3); C Reactive Protein 9.72 mg/L (<8.01); Calcium 9.5 mg/dL (8.6-10.3); Creatinine, Serum 0.96 mg/dL (0.67-1.17); Globulin 3.7 g/dL (2-4); Potassium 4.4 mmol/L (3.5-5.0); Total Bilirubin 0.9 mg/dL (0.2-1.0); Total Protein 8.2 g/dL (6.4-8.9); eGFR CKD-EPI 88.3 (>60)
[2023-05-18 16:59] LABS: ABS Lymphocytes 0.5 10^3/uL (1.0-4.8); ABS Monocytes 0.5 10^3/uL (0.0-1.1); ABS Neutrophils 18.6 10^3/uL (1.5-7.6); ABS Nucleated RBC 0.02 10^3/ul; Lymphocyte % 2.6 %; Nucleated Red Blood Cells % 0.1 %/100WBC (0.0-0.8)
[2023-05-18] MEDS ORDERED: Cefepime 2 GM in Dextrose 2 GM/50 ML BAG IV ONE (17:05)
[2023-05-18] MEDS ORDERED: metroNIDAZOLE IV 500 MG/100ML 500 MG/100 ML BAG IVPB ONE (17:05)
[2023-05-18] MEDS ORDERED: Vancomycin 1,750 MG in NS 0.9% 250 ml 250 ML IVPB ONE (18:00)
[2023-05-18] MEDS ORDERED: Vancomycin 1,750 MG in NS 0.9% 500 ml BAG 500 ML IVPB ONE (18:00)
[2023-05-18] MEDS ORDERED: NS 0.9% 1000 ml BAG 1,000 ML IV SCH (19:15)
[2023-05-18] MEDS ORDERED: NS 0.9% 1000 ml BAG 1,000 ML IV ONE (20:00)
[2023-05-18] MEDS ORDERED: Cefepime 2 GM in Dextrose 2 GM/50 ML BAG IV SCH (20:00)
[2023-05-18] MEDS ORDERED: Vancomycin per Pharmacy 1 EA NOTE FOLLOW UP SCH (20:00)
[2023-05-19 02:34] LABS: Urine Appearance Turbid; Urine Bilirubin Negative (Negative); Urine Blood Negative (Negative); Urine Color Amber; Urine Glucose Negative (Negative); Urine Ketones Negative (Negative); Urine Nitrite Negative (Negative); Urine Protein 1+(30 mg/dL) (Negative); Urine Specific Gravity 1.026 (1.002-1.030); Urine Urobilinogen Negative (Negative)
[2023-05-19 02:45] LABS: Urine Bacteria 1+ (Absent); Urine Red Blood Cell 3+(>10/hpf) (Absent); Urine White Blood Cell Absent (Absent)
[2023-05-19 06:39] LABS: ABS Lymphocytes 0.8 10^3/uL (1.0-4.8); ABS Monocytes 0.7 10^3/uL (0.0-1.1); ABS Neutrophils 14.5 10^3/uL (1.5-7.6); Hematocrit 37.6 % (38-53); Hemoglobin 12.7 g/dL (13.2-16.3); Lymphocyte % 5.1 %; Mean Corpuscular Hemoglobin 29.1 pg (27-33); Mean Corpuscular Hgb Conc 33.9 g/dL (31-36); Mean Corpuscular Volume 85.9 fL (80-97); Mean Platelet Volume 8.6 fL (7.5-11.2); Platelet Count 198 10^3/uL (150-450); Red Blood Count 4.37 10^6/uL (4.06-5.63); Red Cell Distribution Width 12.9 % (12-17)
[2023-05-19 07:00] LABS: C Reactive Protein 122.27 mg/L (<8.01); Calcium 8.5 mg/dL (8.6-10.3); Creatinine, Serum 1.12 mg/dL (0.67-1.17); Potassium 3.7 mmol/L (3.5-5.0); eGFR CKD-EPI 73.4 (>60)
[2023-05-19] MEDS ORDERED: Vancomycin 1000 MG in NS 0.9% 250 ML IVPB SCH (08:00)
[2023-05-19] MEDS: Vancomycin 1000 MG in NS 0.9% 250 ML IVPB SCH ×2 (08:53→21:57)
[2023-05-19] MEDS ORDERED: Vancomycin per Pharmacy 1 EA NOTE FOLLOW UP SCH (09:00)
[2023-05-19] MEDS ORDERED: Cefepime 2 GM in Dextrose 2 GM/50 ML BAG IV SCH ×3 (09:00)
[2023-05-19] MEDS ORDERED: Polyethylene Glycol 3350 17 GM PACKET PO SCH (10:00)
[2023-05-19] MEDS: cefTRIAXone 1 gm/50 mL D5W 1 GM/50 ML BAG IV SCH (11:02)
[2023-05-19] MEDS ORDERED: Senna TAB 8.6 mg TAB PO PRN (16:52)
[2023-05-19] MEDS ORDERED: Petroleum Jelly 1.75 Oz (small jar) TOPICAL ONE (17:00)
[2023-05-19] MEDS: Polyethylene Glycol 3350 17 GM PACKET PO SCH (17:36)
[2023-05-20 07:47] LABS: ABS Lymphocytes 1.5 10^3/uL (1.0-4.8); ABS Monocytes 0.9 10^3/uL (0.0-1.1); Eosinophil % 0.6 %; Hematocrit 35.9 % (38-53); Hemoglobin 12.2 g/dL (13.2-16.3); Lymphocyte % 19.5 %; Mean Corpuscular Hgb Conc 33.8 g/dL (31-36); Mean Corpuscular Volume 85.7 fL (80-97); Mean Platelet Volume 8.4 fL (7.5-11.2); Nucleated Red Blood Cells % 0.1 %/100WBC (0.0-0.8); Platelet Count 183 10^3/uL (150-450); Red Cell Distribution Width 13.6 % (12-17); White Blood Count 7.4 10^3/uL (3.6-10.2)
[2023-05-20 07:58] LABS: Calcium 8.1 mg/dL (8.6-10.3); Creatinine, Serum 0.87 mg/dL (0.67-1.17); Magnesium 2.1 mg/dL (1.9-2.7); Phosphorus 1.7 mg/dL (2.5-5.0); eGFR CKD-EPI 96.4 (>60)
[2023-05-20] MEDS ORDERED: Sodium Phosphate IV 30 MMOL in NS 0.9% 250 ml 250 ML IV ONE (08:51)
[2023-05-20] MEDS: Polyethylene Glycol 3350 17 GM PACKET PO SCH (10:08)
[2023-05-20] MEDS: cefTRIAXone 1 gm/50 mL D5W 1 GM/50 ML BAG IV SCH (10:29)
[2023-05-20 10:48] LABS: Vancomycin Trough 9.2 mcg/mL
[2023-05-20] MEDS: Vancomycin 1000 MG in NS 0.9% 250 ML IVPB SCH ×4 (11:21→20:18)
[2023-05-20] MEDS: Vancomycin Trough Check NOTE FOLLOW UP ONE (11:28)
[2023-05-20 12:54] LABS: Creatinine, Serum 0.85 mg/dL (0.67-1.17)
[2023-05-20] MEDS ORDERED: Iohexol 300 (CONTRAST) 10 ML SDV IV ONE (13:06)
[2023-05-20 13:57] LABS: C Reactive Protein 104.36 mg/L (<8.01)
[2023-05-21] MEDS: Vancomycin 1000 MG in NS 0.9% 250 ML IVPB SCH (04:22)
[2023-05-21 06:17] LABS: ABS Eosinophils 0.1 10^3/uL (0.0-0.5); ABS Lymphocytes 1.4 10^3/uL (1.0-4.8); ABS Monocytes 0.8 10^3/uL (0.0-1.1); ABS Neutrophils 3.8 10^3/uL (1.5-7.6); Eosinophil % 2.1 %; Hematocrit 36.1 % (38-53); Hemoglobin 12.4 g/dL (13.2-16.3); Lymphocyte % 23.4 %; Mean Corpuscular Hemoglobin 29.4 pg (27-33); Mean Corpuscular Hgb Conc 34.3 g/dL (31-36); Mean Corpuscular Volume 85.8 fL (80-97); Mean Platelet Volume 8.6 fL (7.5-11.2); Platelet Count 196 10^3/uL (150-450); Red Cell Distribution Width 13.2 % (12-17); White Blood Count 6.2 10^3/uL (3.6-10.2)
[2023-05-21 06:48] LABS: Calcium 7.9 mg/dL (8.6-10.3); Creatinine, Serum 0.94 mg/dL (0.67-1.17); Magnesium 1.9 mg/dL (1.9-2.7); Phosphorus 2.9 mg/dL (2.5-5.0); Potassium 3.9 mmol/L (3.5-5.0); eGFR CKD-EPI 90.5 (>60)
[2023-05-21] MEDS: Polyethylene Glycol 3350 17 GM PACKET PO SCH (08:44)
[2023-05-21] MEDS: cefTRIAXone 1 gm/50 mL D5W 1 GM/50 ML BAG IV SCH (08:46)
[2023-05-21 10:41] VITALS: BP 151/72
[2023-05-22] MEDS ORDERED: Vancomycin Trough Check NOTE FOLLOW UP ONE (11:30)
== END 2023-05-21 16:10 | disposition home or self-care (01) | DRG 720 ==
LOC: EDHOLD 13:47 → ED 13:47 → SUATTDRO 18:18 → MEDTELE 22:01
PROVIDERS: ADMIT Internal Medicine; ATTEND Internal Medicine